=== PATIENT | female | born 1945 | race Caucasian/White ===

== ENCOUNTER → 2018-03-04 09:50 | Outpatient (CLI) | payer MEDICARE, BC, SELFPAY ==
[2018-02-26 17:09] VITALS: BMI 28.3
[2018-03-04 10:26] LABS: Add Manual Diff / Slide Review NO; Basophils Percent Auto 2.4 % (0-2); Eosinophils Percent Auto 2.8 % (2-4); Hematocrit 29.3 % (36-46); Hemoglobin 10.1 g/dL (12.0-16.0); Lymphocytes Percent Auto 32.3 % (25-40); Mean Corpuscular HGB Conc 34.5 % (30-36); Mean Corpuscular Hemoglobin 32.9 PG (26-34); Mean Corpuscular Volume 95.4 fL (80-100); Monocytes Percent Auto 11.1 % (3-14); Neutrophils Absolute Auto 3100 /uL (3000-5900); Neutrophils Percent Auto 51.4 % (50-75); Platelet Count 324 X10^3/uL (150-400); Red Blood Cell Count 3.07 X10^6/uL (4.0-5.2); Red Cell Distribution Width 13.5 % (11.6-14.8); White Blood Cell Count 5.9 X10^3/uL (4.5-11.0)
[2018-03-04 10:31] LABS: Alanine Aminotransferase 25 IU/L (9-52); Albumin 3.8 g/dL (3.5-5.0); Albumin Globulin Ratio 1.7 (1.0-2.8); Alkaline Phosphatase 49 U/L (38-126); Aspartate Aminotransferase 25 IU/L (14-36); BUN Creatinine Ratio 27.5 (6-22); Bilirubin Total 0.5 mg/dL (0.2-1.3); Calcium 8.6 mg/dL (8.4-10.2); Cholesterol 204 mg/dL (140-199); Estimated Glomerular Filt Rate > 60.0 mL/min (>60); Globulin 2.3 g/dL (1.7-4.1); Glucose 109 mg/dL (80-110); Sodium 142 mmol/L (137-145); Total Protein 6.1 g/dL (6.3-8.2); Triglycerides 59 mg/dL (35-150)
[2018-03-04 10:39] LABS: HEMOLYSIS < 15 (0-50)
[2018-03-04 10:41] LABS: HDL Cholesterol 141 mg/dL (40-60); LDL Cholesterol Calculated 51 mg/dL (<100)
== END ==
PROVIDERS: Family Provider Internal Medicine; PCP Internal Medicine; Visit Provider Internal Medicine
DX: M06.9 Rheumatoid arthritis, unspecified (principal)
CPT/HCPCS: 36415; 80053; 80061; 85025

== ENCOUNTER → 2018-03-09 16:53 | Outpatient (CLI) | payer MEDICARE, BC, SELFPAY ==
[2018-02-26 17:09] VITALS: BMI 28.3
== END ==
PROVIDERS: Family Provider Internal Medicine; PCP Internal Medicine; Visit Provider Internal Medicine
DX: K92.2 Gastrointestinal hemorrhage, unspecified (principal); K25.9 Gastric ulcer, unspecified as acute or chronic, without hemorrhage or perforation; D62 Acute posthemorrhagic anemia

== ENCOUNTER → 2018-03-10 13:31 | Outpatient (CLI) | payer MEDICARE, BC, SELFPAY ==
[2018-02-26 17:09] VITALS: BMI 28.3
[2018-03-10 14:18] LABS: Add Manual Diff / Slide Review NO; Basophils Percent Auto 1.1 % (0-2); Eosinophils Percent Auto 1.1 % (2-4); Hematocrit 30.6 % (36-46); Hemoglobin 10.3 g/dL (12.0-16.0); Lymphocytes Percent Auto 12.1 % (25-40); Mean Corpuscular HGB Conc 33.7 % (30-36); Mean Corpuscular Hemoglobin 31.9 PG (26-34); Mean Corpuscular Volume 94.5 fL (80-100); Monocytes Percent Auto 7.2 % (3-14); Neutrophils Absolute Auto 6300 /uL (3000-5900); Neutrophils Percent Auto 78.5 % (50-75); Platelet Count 430 X10^3/uL (150-400); Red Blood Cell Count 3.24 X10^6/uL (4.0-5.2); Red Cell Distribution Width 13.7 % (11.6-14.8); White Blood Cell Count 8.1 X10^3/uL (4.5-11.0)
[2018-03-10 14:35] LABS: Alanine Aminotransferase 28 IU/L (9-52); Albumin 3.9 g/dL (3.5-5.0); Albumin Globulin Ratio 1.7 (1.0-2.8); Alkaline Phosphatase 53 U/L (38-126); Aspartate Aminotransferase 24 IU/L (14-36); Bilirubin Total 0.9 mg/dL (0.2-1.3); Calcium 9.6 mg/dL (8.4-10.2); Estimated Glomerular Filt Rate > 60.0 mL/min (>60); Globulin 2.3 g/dL (1.7-4.1); Glucose 112 mg/dL (80-110); HEMOLYSIS < 15 (0-50); Potassium 4.2 mmol/L (3.4-5.1); Sodium 138 mmol/L (137-145); Total Protein 6.2 g/dL (6.3-8.2)
== END ==
PROVIDERS: PCP Internal Medicine; Visit Provider Internal Medicine
DX: K92.2 Gastrointestinal hemorrhage, unspecified (principal); K25.9 Gastric ulcer, unspecified as acute or chronic, without hemorrhage or perforation; D62 Acute posthemorrhagic anemia
CPT/HCPCS: 36415; 80053; 85025

== ENCOUNTER 2018-11-06 15:17 | Emergency (ER) | payer MEDICARE, BC, SELFPAY ==
[2018-02-26 17:09] VITALS: BMI 28.3
[2018-11-06 15:23] VITALS: BP 121/75; PULSE 86; RESP 18; TEMP 36.9; O2SAT 95; BMI 25.7
--- NOTE | 2018-11-06 15:28 | DI.RAD.S_ITS ---
PROCEDURE: XR CHEST 2V INDICATIONS: productive cough. 10/20/18 TECHNIQUE: 2 views of the chest were acquired. COMPARISON: None. FINDINGS: Surgical changes and devices: None. Lungs and pleura: A subtle pulmonary radiopacity is present within the right midlung. Trace basilar radiopacities are present at the left lung base. Mediastinum: Mediastinal contours are normal. Heart size is normal. Bones and chest wall: No suspicious bony abnormalities. Soft tissues appear unremarkable. IMPRESSION: Bilateral pulmonary opacities. Differential considerations include aspiration and infection. Short interval followup is recommended to ensure resolution of this finding and exclude underlying pulmonary pathology. Dictated by: Shauna Maxwell M.D. on 11/06/2018 at 15:55 Approved by: Shauna Maxwell M.D. on 11/06/2018 at 15:56
--- NOTE | 2018-11-06 16:49 | ED_ITS ---
HPI - URI/Sore Throat <Ariana Renteria PA-C - Last Filed: 11/06/18 21:40> General Chief Complaint: Upper Respiratory Symptoms Stated Complaint: states, has had a cold since the 2nd Time Seen by Provider: 11/06/18 16:24 Source: patient Mode of arrival: ambulatory Limitations: no limitations History of Present Illness HPI Narrative: This 73-year-old female comes in due to prolonged cough. She states that just before new year, she was exposed to a sick friend who was coughing. Within a day or 2, she and her both developed cough and cold symptoms. She states initially, this was more sinus congestion and pressure and nasal symptoms, but then moved down to her chest. Cough has been productive with thick sputum. She has not had fever at home but has felt a little bit warm and cold at times. She denies dyspnea or wheeze. Her has been better for some time but her cough will not resolve. Sinus and nasal symptoms are much better. She states she is not acutely worse today and came in at the urging of her niece who is a nurse. She is on a new biologic medicine for her rheumatoid arthritis Related Data Home Medications Medication Instructions Recorded Confirmed hydroxychloroquine [Plaquenil] 200 mg PO HS #0 06/06/11 03/09/18 gabapentin [Neurontin] 300 mg PO QDAY #0 08/28/16 03/09/18 methylprednisolone 4 mg PO QDAY #0 07/10/17 03/09/18 hydrocodone 7.5 mg-acetaminophen 1 tab PO Q6H 02/23/18 03/09/18 325 mg tablet calcium carbonate [Calcium 600] 600 mg PO DAILY 02/26/18 03/09/18 calcium carbonate-vitamin D3 500 mg PO QDAY 02/26/18 03/09/18 [Calcium 500 + D (D3)] multivitamin 1 tab PO DAILY 02/26/18 03/09/18 vitamin D31-gwkec acid 1 tab PO DAILY 02/26/18 03/09/18 Previous Rx's Medication Instructions Recorded omeprazole 40 mg PO DAILY #30 cap 02/28/18 tramadol 50 mg tablet 50 mg PO Q6H #60 tab 03/09/18 varicella-zoster glycoE vacc-AS01B 0.5 ml IM ONCE #1 each 03/09/18 adj(PF) 50 mcg/0.5 mL IM susp, kit progesterone micronized 100 mg 100 mg PO QDAY #90 cap 03/17/18 capsule estradiol 0.05 mg/24 hr weekly 1 patch TOP QWEEK #12 patch 03/23/18 transdermal patch azithromycin See Label Instructions .ROUTE 11/06/18 .COMPLEX #6 tab Allergies Allergy/AdvReac Type Severity Reaction Status Date / Time Penicillins Allergy Mild RASH Verified 11/06/18 15:27 codeine AdvReac Mild H/A Verified 11/06/18 15:27 Review of Systems <Ariana Renteria PA-C - Last Filed: 11/06/18 21:40> Review of Systems ROS Unobtainable: All systems reviewed & are unremarkable except as noted in HPI and below PFSH <Ariana Renteria PA-C - Last Filed: 11/06/18 21:40> Comment: Approximately 25 pack-years tobacco, quit 1990 Exam <RAJAN Jones Last Filed: 11/06/18 21:40> Narrative Exam Narrative: GENERAL APPEARANCE: Patient sitting comfortably, in no distress. HEAD: No sinus TTP. EYES: PERRL, EOMI. EARS: Normal auditory canals, TMS intact with normal light reflexes. ORAL CAVITY: Normal oropharynx. THROAT: Clear. NECK/THYROID: Neck supple, full range of motion, no cervical lymphadenopathy. LUNGS: Scattered lower lobe crackles that partially clear with cough, no wheeze , good air entry, occasional wet cough HEART: RRR without murmur, nl S1, S2, no S3 or S4. EXTREMITIES: No edema Initial Vital Signs Initial Vital Signs: Vital Signs Temperature 98.4 F 11/06/18 15:23 Pulse Rate 86 11/06/18 15:23 Respiratory Rate 18 11/06/18 15:23 Blood Pressure 121/75 11/06/18 15:23 Pulse Oximetry 95 11/06/18 15:23 <Rush Francois DO - Last Filed: 11/09/18 07:18> Initial Vital Signs Initial Vital Signs: Vital Signs Temperature 98.4 F 11/06/18 15:23 Pulse Rate 86 11/06/18 15:23 Respiratory Rate 18 11/06/18 15:23 Blood Pressure 121/75 11/06/18 15:23 Pulse Oximetry 95 11/06/18 15:23 Course <Ariana Renteria PA-C - Last Filed: 11/06/18 21:40> Additional Information: Reviewed patient's CXR findings with her and will treat for atypical pneumonia in the setting of recent cough and respiratory sx. She does not have history or current sx of reactive airways and appears appropriate for outpatient treatment. She agreed to return to ED if any acutely worsening symptoms, otherwise advised follow-up with PCP next week to assess progress and also advised follow-up imaging in about a month Orders Ordered: ED Orders 11/06/18 15:28 XR chest 2V Stat Vital Signs - 8 hr 11/06/18 15:23 11/06/18 16:53 Temperature 98.4 F Pulse Rate 86 86 Respiratory Rate 18 17 Blood Pressure 121/75 Blood Pressure [Left Arm] 125/75 Pulse Oximetry 95 95 <Rush Francois DO - Last Filed: 11/09/18 07:18> Orders Ordered: ED Orders 11/06/18 15:28 XR chest 2V Stat Vital Signs - 8 hr 11/06/18 15:23 11/06/18 16:53 Temperature 98.4 F Pulse Rate 86 86 Respiratory Rate 18 17 Blood Pressure 121/75 Blood Pressure [Left Arm] 125/75 Pulse Oximetry 95 95 MDM - URI/Sore Throat <Ariana Renteria PA-C - Last Filed: 11/06/18 21:40> Imaging Data Chest x-ray: Radiologist's impression: [address] [address] XRay Report Signed Patient: Kelsie Hassan R#: [id number] : 6Acct:[id number] Age/Sex: 73 / FDate of Service: 11/06/18 Loc: ED Accession Number: [id number] Procedure: XR chest 2V Ordering Provider: Ariana Renteria P.A-C PROCEDURE: XR CHEST 2V INDICATIONS: productive cough. 10/20/18 TECHNIQUE: 2 views of the chest were acquired. COMPARISON: None. FINDINGS: Surgical changes and devices: None. Lungs and pleura: A subtle pulmonary radiopacity is present within the right midlung. Trace basilar radiopacities are present at the left lung base. Mediastinum: Mediastinal contours are normal. Heart size is normal. Bones and chest wall: No suspicious bony abnormalities. Soft tissues appear unremarkable. IMPRESSION: Bilateral pulmonary opacities. Differential considerations include aspiration and infection. Short interval followup is recommended to ensure resolution of this finding and exclude underlying pulmonary pathology. Dictated by: Shauna Maxwell M.D. on 11/06/2018 at 15:55 Approved by: Shauna Maxwell M.D. on 11/06/2018 at 15:56 Discharge Plan Departure Patient Disposition: Home Clinical Impression: Pneumonia Discharge Date/Time: 11/06/18 16:55 Interventions: ED Discharge Assessment Last Done: 11/06/18 16:54 Instructions: DI for Pneumonia -- Adult Activity Restrictions/Additional Instructions: I have prescribed an antibiotic called azithromycin that is taken for 5 days, but works for 10. This tends to be good treatment for atypical pneumonia as yours looks on your x-ray. Please return as we discussed if you have any acutely worsening symptoms. Otherwise, please start the antibiotic this evening after you pick it up. Please follow up with Dr. Dobbins' office next week for recheck and to determine whether to go ahead with your next rheumatoid arthritis medicine infusion. You should also have a follow-up x-ray in about a month to make sure this is resolving as expected. Prescriptions: New azithromycin 250 mg tablet See Label Instructions .ROUTE .COMPLEX Qty: 6 RF: 0 No Action hydroxychloroquine [Plaquenil] 200 MG tablet 200 mg PO HS Qty: 0 RF: 0 gabapentin [Neurontin] 300 MG capsule 300 mg PO QDAY Qty: 0 RF: 0 methylprednisolone 4 MG tablet 4 mg PO QDAY Qty: 0 RF: 0 progesterone micronized [Prometrium] 100 mg capsule 100 mg PO QDAY Qty: 90 RF: 3 estradiol [Estradiol Transdermal Patch] 0.05 mg/24 hr patch weekly 1 patch TOP QWEEK Qty: 12 RF: 3 tramadol 50 mg tablet 50 mg PO Q6H Qty: 60 RF: 3 varicella-zoster gE-AS01B (PF) [Shingrix (PF)] 50 mcg/0.5 mL suspension for reconstitution 0.5 ml IM ONCE Qty: 1 RF: 0 hydrocodone-acetaminophen 7.5-325 mg tablet 1 tab PO Q6H RF: 0 calcium carbonate [Calcium 600] 600 mg calcium (1,500 mg) Tablet 600 mg PO DAILY RF: 0 multivitamin Tablet 1 tab PO DAILY RF: 0 vitamin C42-vcczn acid 0.5-1 mg Tablet 1 tab PO DAILY RF: 0 calcium carbonate-vitamin D3 [Calcium 500 + D (D3)] 500 mg(1,250mg) -125 unit Tablet 500 mg PO QDAY RF: 0 omeprazole 40 mg capsule,delayed release(DR/EC) 40 mg PO DAILY Qty: 30 RF: 1 Referrals: Ilir Dobbins MD [Primary Care Provider] - <Rush Francois DO - Last Filed: 11/09/18 07:18> Cosign ED Attending Osvaldoature Attestation: I was available for consultation during this patient's emergency department encounter
[2018-11-06 16:53] VITALS: BP 125/75; PULSE 86; RESP 17; O2SAT 95
== END 2018-11-06 16:55 | disposition home or self-care (01) ==
PROVIDERS: Emergency Provider Internal Medicine; Family Provider Internal Medicine; PCP Internal Medicine
DX: J18.9 Pneumonia, unspecified organism (principal)
CPT/HCPCS: 71046; 99282; 99283

== ENCOUNTER → 2019-01-05 17:35 | Outpatient (CLI) | payer MEDICARE, BC, SELFPAY ==
[2018-02-26 17:09] VITALS: BMI 28.3
[2019-01-05 18:31] LABS: Add Manual Diff / Slide Review NO; Basophils Absolute Auto 100 /uL (0-100); Basophils Percent Auto 1.4 % (0-2); Eosinophils Absolute Auto 0 /uL (0-450); Eosinophils Percent Auto 0.2 % (2-4); Hematocrit 43.1 % (36-46); Hemoglobin 14.1 g/dL (12.0-16.0); Lymphocytes Absolute Auto 1900 /uL (1100-4500); Lymphocytes Percent Auto 26.7 % (25-40); Mean Corpuscular HGB Conc 32.7 % (30-36); Mean Corpuscular Hemoglobin 31.7 PG (26-34); Mean Corpuscular Volume 96.9 fL (80-100); Monocytes Absolute Auto 500 /uL (0-900); Monocytes Percent Auto 7.3 % (3-14); Neutrophils Absolute Auto 4600 /uL (1500-7000); Neutrophils Percent Auto 64.4 % (50-75); Platelet Count 295 X10^3/uL (150-400); Red Blood Cell Count 4.45 X10^6/uL (4.0-5.2); Red Cell Distribution Width 15.2 % (11.6-14.8); White Blood Cell Count 7.2 X10^3/uL (4.5-11.0)
[2019-01-05 18:53] LABS: Alanine Aminotransferase 37 IU/L (9-52); Albumin 4.6 g/dL (3.5-5.0); Albumin Globulin Ratio 1.8 (1.0-2.8); Alkaline Phosphatase 50 U/L (38-126); Aspartate Aminotransferase 31 IU/L (14-36); BUN Creatinine Ratio 13.8 (6-22); Bilirubin Total 1.3 mg/dL (0.2-1.3); Blood Urea Nitrogen 11 mg/dL (7-17); Calcium 9.8 mg/dL (8.4-10.2); Carbon Dioxide 25 mmol/L (22-32); Chloride 103 mmol/L (98-107); Estimated Glomerular Filt Rate > 60.0 mL/min (>60); Globulin 2.6 g/dL (1.7-4.1); Glucose 76 mg/dL (80-110); HEMOLYSIS < 15 (0-50); Potassium 4.5 mmol/L (3.4-5.1); Sodium 138 mmol/L (137-145); Total Protein 7.2 g/dL (6.3-8.2)
[2019-01-05 22:59] LABS: HEMOLYSIS < 15 (0-50); Iron 148 ug/dL (37-170)
[2019-01-05 23:15] LABS: Percent Iron Saturation 62 % (15-50); Total Iron Binding Capacity 240 ug/dL (265-497); Transferrin 246 mg/dL (206-381)
== END ==
PROVIDERS: PCP Internal Medicine; Visit Provider Internal Medicine
DX: D64.9 Anemia, unspecified (principal); J18.9 Pneumonia, unspecified organism
CPT/HCPCS: 36415; 80053; 83540; 83550; 85025

== ENCOUNTER → 2019-01-07 14:22 | Outpatient (CLI) | payer MEDICARE, BC, SELFPAY ==
[2018-02-26 17:09] VITALS: BMI 28.3
--- NOTE | 2019-01-07 14:24 | DI.RAD.S_ITS ---
PROCEDURE: XR CHEST 2V INDICATIONS: Pneumonia TECHNIQUE: 2 views of the chest were acquired. COMPARISON: [facility], CR, XR CHEST 2V, 11/06/2018, 15:36. FINDINGS: Surgical changes and devices: None. Lungs and pleura: Previous areas of bibasilar opacities have resolved. Mediastinum: Mediastinal contours are normal. Heart size is normal. Bones and chest wall: No suspicious bony abnormalities. Soft tissues appear unremarkable. IMPRESSION: Resolution of previous bibasilar opacities. Dictated by: Princess Rod M.D. on 01/07/2019 at 14:48 Approved by: Princess Rod M.D. on 01/07/2019 at 14:49
== END ==
PROVIDERS: PCP Internal Medicine; Visit Provider Internal Medicine
DX: J18.9 Pneumonia, unspecified organism (principal); D64.9 Anemia, unspecified
CPT/HCPCS: 71046

== ENCOUNTER → 2019-08-09 11:40 | Outpatient (CLI) | payer MEDICARE, BC, SELFPAY ==
[2018-02-26 17:09] VITALS: BMI 28.3
[2019-08-09 12:46] LABS: Add Manual Diff / Slide Review NO; Basophils Absolute Auto 100 /uL (0-100); Basophils Percent Auto 1.8 % (0-2); Eosinophils Absolute Auto 100 /uL (0-450); Eosinophils Percent Auto 1.8 % (2-4); Hematocrit 43.2 % (36-46); Hemoglobin 14.5 g/dL (12.0-16.0); Lymphocytes Absolute Auto 2100 /uL (1100-4500); Lymphocytes Percent Auto 33.1 % (25-40); Mean Corpuscular HGB Conc 33.6 % (30-36); Mean Corpuscular Hemoglobin 32.8 PG (26-34); Mean Corpuscular Volume 97.6 fL (80-100); Monocytes Absolute Auto 600 /uL (0-900); Neutrophils Absolute Auto 3300 /uL (1500-7000); Neutrophils Percent Auto 53.3 % (50-75); Platelet Count 285 X10^3/uL (150-400); Red Blood Cell Count 4.42 X10^6/uL (4.0-5.2); Red Cell Distribution Width 13.7 % (11.6-14.8); White Blood Cell Count 6.2 X10^3/uL (4.5-11.0)
[2019-08-09 13:00] LABS: Erythrocyte Sedimentation Rate 1 MM/HR (0-20)
[2019-08-09 13:21] LABS: Alanine Aminotransferase 21 IU/L (9-52); Albumin 4.5 g/dL (3.5-5.0); Albumin Globulin Ratio 1.7 (1.0-2.8); Alkaline Phosphatase 51 U/L (38-126); Amylase 90 U/L (30-110); Aspartate Aminotransferase 32 IU/L (14-36); BUN Creatinine Ratio 21.4 (6-22); Bilirubin Total 1.5 mg/dL (0.2-1.3); Blood Urea Nitrogen 15 mg/dL (7-17); C-Reactive Protein Quant < 0.5 mg/dL (<1.0); Calcium 9.5 mg/dL (8.4-10.2); Carbon Dioxide 28 mmol/L (22-32); Chloride 100 mmol/L (98-107); Estimated Glomerular Filt Rate > 60.0 mL/min (>60); Globulin 2.6 g/dL (1.7-4.1); Glucose 120 mg/dL (80-110); HEMOLYSIS < 15 (0-50); Lipase 49 U/L (23-300); Sodium 136 mmol/L (137-145); Total Protein 7.1 g/dL (6.3-8.2)
== END ==
PROVIDERS: PCP Internal Medicine; Visit Provider Internal Medicine
DX: M06.9 Rheumatoid arthritis, unspecified (principal); R10.11 Right upper quadrant pain; R11.10 Vomiting, unspecified
CPT/HCPCS: 36415; 80053; 82150; 83690; 85025; 85651; 86140

== ENCOUNTER → 2020-01-03 10:03 | Outpatient (CLI) | payer MEDICARE, BC, SELFPAY ==
[2018-02-26 17:09] VITALS: BMI 28.3
--- NOTE | 2020-01-03 | DI.US.S_ITS ---
PROCEDURE: US ABDOMEN COMPLETE INDICATIONS: GENERALIZED ABD PAIN, N/V TECHNIQUE: Real-time scanning was performed of the abdominal and retroperitoneal organs, with image documentation. COMPARISON: None. FINDINGS: Liver: Liver is normal in size and homogeneous in echotexture. Gallbladder: The gallbladder appears normal Biliary ducts: Intrahepatic bile ducts are non-dilated. Extrahepatic bile duct caliber measures 6.9 mm. Normal is 6-7 mm or less in diameter, or 10 mm or less post-cholecystectomy. Pancreas: Visualized portions of the pancreas are sonographically normal. Spleen: Spleen is normal in size and homogeneous in echotexture. Kidneys: Kidneys are normal in size and echotexture. Right kidney measures 8.6 cm long; left kidney measures 9.2 cm long. No hydronephrosis or nephrolithiasis. No solid masses. Aorta: Visualized aorta is normal in caliber at less than 3 cm. Iliacs: Proximal common iliac arteries are normal in caliber at less than 2.5 cm. IVC: Intrahepatic inferior vena cava is patent. Miscellaneous: No free abdominal fluid. IMPRESSION: Normal examination, source of generalized pain, and nausea/vomiting after eating is not found. Dictated by: Kartik Mcclain M.D. on 01/03/2020 at 12:49 Approved by: Kartik Mcclain M.D. on 01/03/2020 at 12:50
== END ==
PROVIDERS: PCP Internal Medicine; Referring Provider Internal Medicine; Visit Provider Internal Medicine
DX: R10.84 Generalized abdominal pain (principal); R11.2 Nausea with vomiting, unspecified
CPT/HCPCS: 76700

== ENCOUNTER → 2020-04-15 14:45 | Outpatient (CLI) | payer MEDICARE, BC, SELFPAY ==
[2018-02-26 17:09] VITALS: BMI 28.3
[2020-04-16 08:36] LABS: COVID19 Sendout Not Detected (Not Detect)
== END ==
PROVIDERS: PCP Internal Medicine; Visit Provider Physician Assistant
DX: Z01.812 Encounter for preprocedural laboratory examination (principal)
CPT/HCPCS: 87635

== ENCOUNTER 2020-04-18 12:01 | Day surgery (SDC) | payer MEDICARE, BC, SELFPAY ==
[2018-02-26 17:09] VITALS: BMI 28.3
--- NOTE | 2020-04-18 | PATH_ITS ---
[facility] Accession Number: [id number] . 01 Material submitted: . PART A: small bowel - SMALL BOWEL PART B: gastrointestinal site - GASTRIC PART C: esophagus - ESOPHAGEAL PART D: colon - COLON POLYP AT HEPATIC FLEXURE PART E: colon - RANDOM COLON . 02 Diagnosis: A. Small Bowel, Biopsy: Duodenal mucosa with no diagnostic abnormality. Negative for active inflammation, features of sprue, dysplasia, or malignancy. . B. Stomach, Biopsy: Antral mucosa with no diagnostic abnormality. No evidence of Helicobacter organisms on H/E stain. Negative for intestinal metaplasia. Negative for dysplasia and malignancy. . C. Esophagus, Biopsy: Squamous epithelium with mild chronic inflammation, suggestive of reflux esophagitis. Intraepithelial eosinophils are not increased. Negative for dysplasia or malignancy. . D. Colon Polyp at Hepatic Flexure, Biopsy: Tubular adenoma. . E. Random Colon, Biopsy: Colonic mucosa with no diagnostic abnormality. Negative for active, chronic, and microscopic colitis. Negative for dysplasia and malignancy. . [facility] 04/20/2020 1053 Local . 02 Electronically signed: . Jostin Torres MD, PhD, Pathologist NPI- [id number] . 01 Gross description: . Part A: SMALL BOWEL: Received in formalin is 1 fragment(s) of solis, soft tissue measuring 0.3 x 0.2 x 0.2 cm submitted entirely in 1 cassette(s) Part B: GASTRIC: Received in formalin is 1 fragment(s) of solis, soft tissue measuring 0.3 x 0.2 x 0.2 cm submitted entirely in 1 cassette(s) Part C: ESOPHAGEAL: Received in formalin are 4 fragment(s) of solis, soft tissue measuring 0.4 x 0.2 x 0.1 cm to 0.2 x 0.2 x 0.1 cm submitted entirely in 1 cassette(s) Part D: COLON POLYP AT HEPATIC FLEXURE: Received in formalin is 1 fragment(s) of solis, soft tissue measuring 0.2 x 0.2 x 0.2 cm submitted entirely in 1 cassette(s) Part E: RANDOM COLON: Received in formalin are 4 fragment(s) of solis, soft tissue measuring 0.3 x 0.3 x 0.1 cm to 0.2 x 0.2 x 0.1 cm submitted entirely in 1 cassette(s) /QMARYCARMEN 04/19/2020 0740 Local . 02 Pathologist provided ICD-10: R10.13, K21.9, D12.3, R19.4 . 02 CPT . 608761, 750489, 915911, 222931, [id number] Performed at: 01 [facility] [address] [place] [address] [id number] MD Clinton Mancuso MD Phone: [phone] Performed at: 02 [facility] [address] [place] [address] [id number] MD Ainsley Gamino MD Phone: [phone]
[2020-04-18 13:27] VITALS: BP 125/67; PULSE 70; RESP 14; TEMP 36.8; O2SAT 98; BMI 25.0
[2020-04-18] MEDS: SODIUM CHLORIDE 0.9% 1,000 ML 21 ML IV (13:54)
--- NOTE | 2020-04-18 14:35 | P.OP.ENDO_ITS ---
Operative Date/Time/Diagnoses Date of procedure: 04/18/20 Time of procedure: 14:35 Pre-op diagnosis: See indication and findings Procedure & Clinicians Study performed: EGD and colonoscopy Same procedure as scheduled: Yes Indications: Dysphagia nausea vomiting heartburn abdominal discomfort diarrhea and history of bleeding peptic ulcer 2 years ago and [facility] Surgeon: David Pulido Procedure Notes Procedure in detail: After informed consent was obtained the patient was placed in the left lateral decubitus position. The video upper scope was placed into the oropharynx and with the patient's help swallowed into the esophagus. The esophagus, stomach, duodenum were carefully examined. On withdrawal, retroflexed view of the GE junction was performed. The scope was removed. The patient tolerated procedure well. The patient was then turned and the scope substituted for colonoscope. This was introduced the rectum and slowly advanced to the terminal ileum. Preparation was good. On slow withdrawal mucosa was carefully examined. The scope was rem kavita. The patient tolerated procedure well. Blood loss none Complications none Sedation MAC Findings EGD 1. Slight rings to the mid esophagus biopsies taken to rule out eosinophilic esophagitis 2. Stomach was scattered erythema but also somewhat friable biopsies taken to rule out Helicobacter 3. Normal duodenal bulb and sweep biopsies taken to rule out celiac Colonoscopy 1. Normal terminal ileum 2. Diminutive 2 mm polyp at the hepatic flexure Jumbo biopsied and removed completely 3. Normal colonic mucosa throughout biopsies taken to rule out microscopic colitis 4. Extensive sigmoid diverticulosis We will be in touch regarding biopsies and follow-up based on the biopsies.
[2020-04-18 15:02] VITALS: BP 92/51; PULSE 65; RESP 10; TEMP 36.7; O2SAT 96
[2020-04-18 15:07] VITALS: BP 95/57; PULSE 67; RESP 10; O2SAT 93
--- NOTE | 2020-04-18 15:09 | SUR.PHASEI ---
Patient somnolent. Passing gas.
[2020-04-18 15:11] VITALS: BP 94/52; PULSE 70; RESP 15; TEMP 36.7; O2SAT 100
[2020-04-18 15:29] VITALS: BP 99/54; PULSE 70; RESP 16; TEMP 36.8; O2SAT 100
== END 2020-04-18 15:41 | disposition home or self-care (01) ==
LOC: ENDO 12:03
PROVIDERS: PCP Internal Medicine; Referring Provider Internal Medicine Gastroenterology; Visit Provider Internal Medicine Gastroenterology
PROC: 0DJ08ZZ Inspection of Upper Intestinal Tract, Via Natural or Artificial Opening Endoscopic (ICD-10-PCS; CPT 43235; principal; 2020-04-18 15:00)
PROC: 0DJD8ZZ Inspection of Lower Intestinal Tract, Via Natural or Artificial Opening Endoscopic (ICD-10-PCS; CPT 45378; 2020-04-18 15:00)
DX: K57.30 Diverticulosis of large intestine without perforation or abscess without bleeding (principal); Z80.0 Family history of malignant neoplasm of digestive organs; D12.3 Benign neoplasm of transverse colon; K21.9 Gastro-esophageal reflux disease without esophagitis
CPT/HCPCS: 45380; 43239; J2704; J3010

== ENCOUNTER → 2021-01-10 15:14 | Outpatient (CLI) | payer MEDICARE, BC, SELFPAY ==
[2018-02-26 17:09] VITALS: BMI 28.3
[2021-01-10 15:45] LABS: Add Manual Diff / Slide Review NO; Basophils Absolute Auto 0 /uL (0-100); Basophils Percent Auto 0.2 % (0-2); Eosinophils Absolute Auto 0 /uL (0-450); Eosinophils Percent Auto 0.6 % (2-4); Hematocrit 40.8 % (36-46); Lymphocytes Absolute Auto 600 /uL (1100-4500); Lymphocytes Percent Auto 7.9 % (25-40); Mean Corpuscular HGB Conc 34.3 % (30-36); Mean Corpuscular Hemoglobin 34.1 PG (26-34); Mean Corpuscular Volume 99.6 fL (80-100); Monocytes Absolute Auto 400 /uL (0-900); Monocytes Percent Auto 5.8 % (3-14); Neutrophils Absolute Auto 6300 /uL (1500-7000); Neutrophils Percent Auto 85.5 % (50-75); Platelet Count 251 X10^3/uL (150-400); Red Cell Distribution Width 13.2 % (11.6-14.8); White Blood Cell Count 7.4 X10^3/uL (4.5-11.0)
[2021-01-10 16:15] LABS: Alanine Aminotransferase 17 IU/L (<35); Albumin 4.2 g/dL (3.5-5.0); Albumin Globulin Ratio 1.7 (1.0-2.8); Alkaline Phosphatase 52 U/L (38-126); Amylase 99 U/L (30-110); Aspartate Aminotransferase 28 IU/L (14-36); BUN Creatinine Ratio 17.2 (6-22); Bilirubin Total 1.1 mg/dL (0.2-1.3); Blood Urea Nitrogen 15 mg/dL (7-17); Calcium 9.4 mg/dL (8.4-10.2); Carbon Dioxide 30 mmol/L (22-32); Chloride 103 mmol/L (98-107); Estimated Glomerular Filt Rate > 60.0 mL/min (>60); Globulin 2.5 g/dL (1.7-4.1); Glucose 195 mg/dL (80-110); HEMOLYSIS 19 (0-50); Lipase 43 U/L (23-300); Potassium 4.4 mmol/L (3.4-5.1); Sodium 137 mmol/L (137-145); Total Protein 6.7 g/dL (6.3-8.2)
[2021-01-10 16:31] LABS: HEMOLYSIS < 15 (0-50); Iron 89 ug/dL (37-170)
[2021-01-10 16:48] LABS: Percent Iron Saturation 53 % (15-50); Total Iron Binding Capacity 168 ug/dL (265-497); Transferrin 207 mg/dL (206-381)
[2021-01-10 16:59] LABS: Free T4, Direct Thyroxine 0.92 ng/dL (0.78-2.19)
[2021-01-10 17:13] LABS: Thyroid Stimulating Hormone 0.528 uIU/mL (0.47-4.68)
== END ==
PROVIDERS: PCP Internal Medicine; Referring Provider Internal Medicine; Visit Provider Internal Medicine
DX: L40.9 Psoriasis, unspecified (principal); R19.7 Diarrhea, unspecified; M05.79 Rheumatoid arthritis with rheumatoid factor of multiple sites without organ or systems involvement; R10.9 Unspecified abdominal pain
CPT/HCPCS: 36415; 80053; 82150; 83540; 83550; 83690; 84439; 84443; 85025

== ENCOUNTER → 2021-06-25 14:40 | Outpatient (CLI) | payer MEDICARE, OTHER, SELFPAY ==
[2018-02-26 17:09] VITALS: BMI 28.3
[2021-06-26 08:16] LABS: Immunoglobulin A 242 mg/dL (64-422); Immunoglobulin G, Quantitative 648 mg/dL (586-1602); Immunoglobulin M, Quantitative 33 mg/dL (26-217)
[2021-06-26 16:44] LABS: Tissue Transglutaminase IgA <2 U/mL (0-3)
== END ==
PROVIDERS: PCP Internal Medicine; Referring Provider Internal Medicine Gastroenterology; Visit Provider Internal Medicine Gastroenterology
DX: R19.7 Diarrhea, unspecified (principal)
CPT/HCPCS: 36415; 82784; 83516

== ENCOUNTER → 2021-06-28 11:24 | Outpatient (CLI) | payer MEDICARE, OTHER, SELFPAY ==
[2018-02-26 17:09] VITALS: BMI 28.3
[2021-07-01 16:36] LABS: Calprotectin, Stool 79 ug/g (0-120)
[2021-07-03 23:42] LABS: Pancreatic Elastase, Fecal 296 (>200)
== END ==
PROVIDERS: PCP Internal Medicine; Referring Provider Internal Medicine Gastroenterology; Visit Provider Internal Medicine Gastroenterology
DX: R19.7 Diarrhea, unspecified (principal)
CPT/HCPCS: 82656; 83993

== ENCOUNTER → 2021-08-26 12:05 | Outpatient (CLI) | payer MEDICARE, OTHER, SELFPAY ==
[2018-02-26 17:09] VITALS: BMI 28.3
== END ==
PROVIDERS: PCP Internal Medicine; Referring Provider Internal Medicine Rheumatology; Visit Provider Internal Medicine Rheumatology
DX: M05.79 Rheumatoid arthritis with rheumatoid factor of multiple sites without organ or systems involvement (principal); Z78.0 Asymptomatic menopausal state
CPT/HCPCS: 77080

== ENCOUNTER 2021-11-03 12:38 | Emergency (ER) | payer MEDICARE, OTHER, SELFPAY ==
[2018-02-26 17:09] VITALS: BMI 28.3
[2021-11-03 12:50] VITALS: BP 160/73; PULSE 66; RESP 18; TEMP 36.9; O2SAT 99; BMI 22.6
--- NOTE | 2021-11-03 12:57 | DI.RAD.S_ITS ---
PROCEDURE: XR HIP W PEL IF DONE RT 4V INDICATIONS: hip pain TECHNIQUE: AP pelvis with lateral view(s) of the right hip(s). COMPARISON: None. FINDINGS: Bones: No fractures or dislocations. Pelvic ring appears intact. No suspicious bony lesions. Postsurgical change with discectomy at L4-5. Periarticular as well as greater trochanter osteophytosis. Soft tissues: The visualized bowel gas pattern is normal. No suspicious soft tissue calcifications. IMPRESSION: No acute osseous abnormality. Dictated by: Mat Beal M.D. on 11/03/2021 at 13:15 Approved by: Mat Beal M.D. on 11/03/2021 at 13:18
--- NOTE | 2021-11-03 14:31 | ED.EXTPRO ---
HPI - Extremity Problem <Ainsley Turner Haney [facility] - Last Filed: 11/03/21 17:03> General Chief complaint: Extremity Problem,Nontraumatic Stated complaint: right hip hurts, hard to walk Time Seen by Provider: 11/03/21 14:31 History of Present Illness HPI Narrative: 76-year-old female with history of rheumatoid arthritis and prior lumbar spine surgery with hardware presents to the emergency department complaining of right buttock and right upper leg pain which started 3 days ago in the middle of the night when she was attempting to roll over. Patient reports that when she stands on her legs or is walking her right leg is very sharp and painful starting in her right buttock. She denies any weakness in her lower extremity, she endorses that this is never happened to her before. Patient is on multiple medications for her rheumatoid arthritis including methotrexate, daily methylprednisolone, the hydroxychloroquine, gabapentin, and budesonide. Patient reports that years ago she had 3 back surgeries and has had low back pain for years but never has it traveled down her leg. Patient denies any sensation changes. Patient denies any recent trauma, she denies any fall or any abrupt movements recently. She denies any fever, she denies any weakness or inability to walk walking is the most painful. Right leg lift reproduces symptoms, no pain with left leg lift Related Data Home Medications Medication Instructions Recorded Confirmed hydroxychloroquine 200 mg tablet 200 mg PO HS #0 06/06/11 08/19/21 (Plaquenil) gabapentin 300 mg capsule 300 mg PO QDAY #0 08/28/16 08/19/21 (Neurontin) ferrous sulfate 325 mg (65 mg 325 mg PO DAILY tab 11/12/18 08/19/21 iron) tablet golimumab 12.5 mg/mL intravenous See Rx Instructions IV .COMPLEX ml 11/12/18 08/19/21 solution (Simponi ARIA) methylprednisolone 4 mg tablet 4 mg PO DAILY 08/08/19 08/19/21 calcium carbonate 600 mg calcium 1,200 mg PO DAILY tab 09/19/19 08/19/21 (1,500 mg) tablet (Calcium) cholecalciferol (vitamin D3) 25 2,000 unit PO DAILY cap 09/19/19 08/19/21 mcg (1,000 unit) capsule hydrocodone 10 mg-acetaminophen See Rx Instructions PO DAILY PRN 09/19/19 08/19/21 325 mg tablet tab Vitamin B12 1 tab PO DAILY 02/18/21 08/19/21 methotrexate sodium 2.5 mg tablet 7.5 mg PO QWEEK tab 02/18/21 08/19/21 Vitamin C 1 tab PO DAILY 08/19/21 budesonide 3 mg 6 mg PO DAILY ea 08/19/21 08/19/21 capsule,delayed,extended release colestipol 1 gram tablet 2 g PO BEDTIME tab 08/19/21 08/19/21 folic acid 1 mg tablet 1 mg PO DAILY tab 08/19/21 08/19/21 loperamide 2 mg tablet 2 mg PO BEDTIME tab 08/19/21 08/19/21 Previous Rx's Medication Instructions Recorded Disabled Parking #1 each 11/12/18 famotidine 40 mg tablet 40 mg PO DAILY #90 tab 12/19/19 pantoprazole 40 mg tablet,delayed 40 mg PO DAILY #90 tab 09/09/21 release progesterone micronized 100 mg 100 mg PO DAILY #90 cap 09/20/21 capsule estradiol 0.05 mg/24 hr weekly 1 patch TOPICAL QWEEK #12 each 10/01/21 transdermal patch gabapentin 300 mg capsule 300 mg PO BID PRN #14 cap 11/03/21 lidocaine 4 % topical patch 1 patch TOPICAL DAILY PRN #15 ea 11/03/21 methocarbamol 500 mg tablet 500 mg PO TID PRN #20 tab 11/03/21 methylprednisolone 4 mg tablet 4 mg PO DAILY #7 tab 11/03/21 Allergies Allergy/AdvReac Type Severity Reaction Status Date / Time Penicillins Allergy Mild RASH Verified 11/03/21 12:57 codeine AdvReac Mild H/A Verified 11/03/21 12:57 Review of Systems <Ainsley Haney [facility] - Last Filed: 11/03/21 17:03> Review of Systems Narrative: General: denies fever, chills, malaise, sweats, fatigue Head/Neck: denies headache, neck pain, dizziness Eyes: denies visual changes, eye pain Cardio: denies chest pain, palpitations, edema Respiratory: denies dyspnea, cough, orthopnea GI: denies abdominal pain, nausea, vomiting, or diarrhea : denies dysuria, hematuria, urinary retention, frequency or incontinence MSK: denies joint pain, muscle weakness, endorses low back pain with right leg pain Skin: denies rash, itching, skin lesions or other Neuro: denies numbness, tingling Patient History <TODD Redman - Last Filed: 11/03/21 17:03> Medical History Chronic diarrhea Diverticular disease of colon Gilbert syndrome History of adenomatous polyp of colon (06/27/11) History of migraine headaches Psoriasis Pyloric ulcer (~02/2018) Rheumatoid arthritis (06/06/11) Surgical History History of carpal tunnel repair Status post tubal ligation Family History Brother Age: 75 Hypertension High cholesterol Child Age: 57 Mental health problem Child Age: 54 MS (multiple sclerosis) Father Age: 100 Mental health problem Dementia Cardiac disease Mother Family history of colon cancer Colon cancer Cardiac disease Sister Age: 73 Hypertension High cholesterol Social History household members: spouse Smoking Status: Former smoker alcohol intake: current Smoking Status: Former smoker alcohol intake frequency: 0-2 drinks per day Substance Use Type: does not use Exam <TODD Redman - Last Filed: 11/03/21 17:03> Narrative Exam Narrative: Independently reviewed vitals signs and nursing notes. General: Awake, alert, well-nourished and developed, nontoxic, no cardiorespiratory distress Head/Neck: Atraumatic, neck full range of motion, trachea midline, no JVD or lymphadenopathy. Supple, nontender, no meningeal signs. Eyes: Pupils equal round and reactive, EOMI, conjunctiva normal, no scleral icterus or injections Nose: nares patent, no rhinorrhea, without purulent drainage or septal hematoma. Mouth/Throat: uvula midline, moist mucus membranes Cardio: Regular rate and rhythm, no peripheral edema Respiratory: respirations unlabored without wheezing, stridor, or rales. No retractions. GI: Abdomen soft, nontender, nondistended, no hepato-spenomegaly MSK: Moves all extremities, neurovascularly intact, no flank tenderness, right leg lift reproduces low back pain and right upper hip pain. Pulses 2+ right PT and DP, her foot is warm, without edema patient has lumbar sacral pain to the right of her spine on palpation, no spinal tenderness, 5/5 muscle strength Skin: Normal capillary refill, no rash Neuro: Normal speech and cognition, normal gait, A&O x3 Initial Vital Signs Initial Vital Signs: Vital Signs Temperature 98.4 F 11/03/21 12:50 Pulse Rate 66 11/03/21 12:50 Respiratory Rate 18 11/03/21 12:50 Blood Pressure 160/73 H 11/03/21 12:50 Pulse Oximetry 99 11/03/21 12:50 <Vani Kitchen DO - Last Filed: 11/03/21 18:03> Initial Vital Signs Initial Vital Signs: Vital Signs Temperature 98.4 F 11/03/21 12:50 Pulse Rate 66 11/03/21 12:50 Respiratory Rate 18 11/03/21 12:50 Blood Pressure 160/73 H 11/03/21 12:50 Pulse Oximetry 99 11/03/21 12:50 Course <TODD Redman - Last Filed: 11/03/21 17:03> Orders Ordered: ED Orders 11/03/21 12:57 XR hip w pel if done RT 2V Stat 11/03/21 15:04 XR lumbar spine 2-3V Stat XR sacrum coccyx min 2V Stat Discontinued Medications Hydrocodone Bitart/Acetaminophen (Hydrocodone/Acet 5/325 Tablet) 1 tab PO NOW ONE Stop: 11/03/21 15:32 Last Admin: 11/03/21 16:08 Dose: Not Given Documented by: VINCENT Gabapentin (Gabapentin 300 Mg Capsule) 300 mg PO NOW ONE Stop: 11/03/21 14:54 Last Admin: 11/03/21 15:32 Dose: 300 mg Documented by: VINCENT Ketorolac Tromethamine (Ketorolac 30 Mg/Ml Vial) 15 mg IM NOW ONE Stop: 11/03/21 14:58 Last Admin: 11/03/21 15:32 Dose: 15 mg Documented by: VINCENT Lidocaine (Lidocaine Patch 1 Each Adh..Patch) 1 each TOP NOW ONE Stop: 11/03/21 14:57 Last Admin: 11/03/21 15:32 Dose: 1 each Documented by: VINCENT Methocarbamol (Methocarbamol 500 Mg Tablet) 500 mg PO NOW ONE Stop: 11/03/21 14:54 Last Admin: 11/03/21 15:32 Dose: 500 mg Documented by: VINCENT Methylprednisolone (Methylprednisolone 4 Mg Tablet) 8 mg PO NOW ONE Stop: 11/03/21 14:56 Last Admin: 11/03/21 15:32 Dose: 8 mg Documented by: VINCENT Vital Signs Vital signs: Vital Signs - 8 hr 11/03/21 12:50 11/03/21 16:11 Temperature 98.4 F Pulse Rate 66 67 Respiratory Rate 18 16 Blood Pressure 160/73 H 134/69 Pulse Oximetry 99 99 <Vani Kitchen DO - Last Filed: 11/03/21 18:03> Orders Ordered: ED Orders 11/03/21 12:57 XR hip w pel if done RT 2V Stat 11/03/21 15:04 XR lumbar spine 2-3V Stat XR sacrum coccyx min 2V Stat Discontinued Medications Hydrocodone Bitart/Acetaminophen (Hydrocodone/Acet 5/325 Tablet) 1 tab PO NOW ONE Stop: 11/03/21 15:32 Last Admin: 11/03/21 16:08 Dose: Not Given Documented by: VINCENT Gabapentin (Gabapentin 300 Mg Capsule) 300 mg PO NOW ONE Stop: 11/03/21 14:54 Last Admin: 11/03/21 15:32 Dose: 300 mg Documented by: VINCENT Ketorolac Tromethamine (Ketorolac 30 Mg/Ml Vial) 15 mg IM NOW ONE Stop: 11/03/21 14:58 Last Admin: 11/03/21 15:32 Dose: 15 mg Documented by: VINCENT Lidocaine (Lidocaine Patch 1 Each Adh..Patch) 1 each TOP NOW ONE Stop: 11/03/21 14:57 Last Admin: 11/03/21 15:32 Dose: 1 each Documented by: VINCENT Methocarbamol (Methocarbamol 500 Mg Tablet) 500 mg PO NOW ONE Stop: 11/03/21 14:54 Last Admin: 11/03/21 15:32 Dose: 500 mg Documented by: VINCENT Methylprednisolone (Methylprednisolone 4 Mg Tablet) 8 mg PO NOW ONE Stop: 11/03/21 14:56 Last Admin: 11/03/21 15:32 Dose: 8 mg Documented by: ATAYLOR Vital Signs Vital signs: Vital Signs - 8 hr 11/03/21 12:50 11/03/21 16:11 Temperature 98.4 F Pulse Rate 66 67 Respiratory Rate 18 16 Blood Pressure 160/73 H 134/69 Pulse Oximetry 99 99 MDM - Extremity (Nontraumatic) <Ainsley Haney, [facility] - Last Filed: 11/03/21 17:03> Imaging Data Extremity x-ray #1: Radiologist's Impression: PROCEDURE:? XR LUMBAR SPINE 2-3V ? INDICATIONS:? low back pain w/rt sciatica ? TECHNIQUE:? 3 views of the lumbar spine were acquired.? ? COMPARISON:? [facility], MR, L-SPINE WITHOUT CONTRAST, 03/01/2012, 19:23.? [facility], MR, L-SPINE WITHOUT CONTRAST, 01/22/2011, 18:57.? [facility], CR, XR SACRUM COCCYX MIN 2V, 11/03/2021, 14:57.? [facility], CR, XR HIP W PEL IF DONE RT 2V, 11/03/2021, 12:53.? [facility], CR, L-SPINE 2-3 VIEWS, 03/01/2012, 19:55. ? FINDINGS:? ? Bones:? Postoperative changes are seen, with bilateral pedicle screws at the L4 and L5 levels.? The screws appear well placed.? A disc spacer is seen at L4-L5. ? Vertical fixation rods are seen. No findings of hardware failure or hardware loosening are seen. There has been removal of portions of the posterior elements.? Apparent bone grafting material is also seen. ? 5 nonrib-bearing, lumbar type vertebral bodies are seen. ? No acute appearing fractures are seen.? No suspicious lytic or blastic lesions can be seen. ? ? There is mild retrolisthesis seen at L2-L3, with minimal retrolisthesis at L3-L4.? Moderate disc space narrowing is seen at L1-L2.? There is severe disc space narrowing at L2-L3, with [id number] disc space narrowing at L3-L4 and L4-L5.? Minimal dextroconvex scoliotic curvature is seen.? Endplate irregularity and sclerosis are seen, which are worst at the L2-L3 level. ? Soft tissues:? Overlying bowel gas pattern is normal.? No suspicious soft tissue calcifications.? Atherosclerotic calcification is noted.? ? ? IMPRESSION:? Unremarkable L4-5 postoperative hardware. ? Degenerative changes are seen, which are worst at L2-L3.? These degenerative changes have progressed compared to the priors. ? ? Dictated by: Khanh Calzada M.D. on 11/03/2021 at 15:07 ? ? Approved by: Khanh Calzada M.D. on 11/03/2021 at 15:09 ? Extremity x-ray #2: Radiologist's Impression: PROCEDURE:? XR SACRUM COCCYX MIN 2V ? INDICATIONS:? low back pain w/rt sciatica ? TECHNIQUE:? 3 views of the sacrum and coccyx acquired.? ? COMPARISON:? [facility], CR, XR LUMBAR SPINE 2-3V, 11/03/2021, 14:57.? [facility], CR, XR HIP W PEL IF DONE RT 2V, 11/03/2021, 12:53. ? FINDINGS:? ? Bones:? No fractures or dislocations.? No suspicious bony lesions.? L4-5 postoperative hardware is seen.? Lower lumbar spine postoperative changes are seen. ? Soft tissues:? Visualized bowel gas pattern is normal.? No suspicious soft tissue densities.? IMPRESSION:? No significant abnormality of the sacrum and coccyx can be seen. ? ? Dictated by: Khanh Calzada M.D. on 11/03/2021 at 15:05 ? ? Approved by: Khanh Calzada M.D. on 11/03/2021 at 15:06 ? [facility] Narrative Medical decision making narrative: 76-year-old female with history of rheumatoid arthritis, psoriasis, and Gilbert syndrome presents to the emergency department complaining of low back pain with right hip and right lower extremity pain. X-ray lumbar spine are negative for acute fracture, postoperative changes are seen with pedicle screws at L4-5 and appear well placed per Radiology report. No findings of hardware failure or hardware loosening. Patient has worsening degenerative disc disease compared with prior MRI in 2012, with mild retrolisthesis seen from L2-L3 and unremarkable L4-L5 postoperative hardware. Her degenerative changes are seen worst at L2-L3, these degenerative changes have progressed compared to prior. Patient was given an additional 8 mg of methylprednisolone on top of her 4 mg daily, methocarbamol, Toradol 15 mg IM, gabapentin 300 mg, and a lidocaine patch which she reports as helping her pain at least reduced by 50%. This is most likely a flare of her low back pain with sciatic symptoms down her right leg. I have encouraged her to do warm packs, take an additional 4 mg of methylprednisolone for the next 7 days, methocarbamol prn, lidocaine patches and an extra 300 mg of gabapentin as needed as needed for the next week. 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 She has seen Dr. Kruger in the past, I also referred her to the PAs that are at the clinic and an additional option in the [facility] as she is driving to [place] for her infusions currently and that would shorten her drive. She was satisfied with this, and will follow-up accordingly. Multiple etiologies of back pain considered including: Epidural abscess, cauda equina, mass occupying lesion, canal stenosis, multiple sclerosis, pyelonephritis, and other considered. Patient is appropriate and amenable to discharge home. Vital signs are stable on repeat examination is unremarkable. Patient has been informed of results. Patient has been given strict return to ER precautions for any new or worsening symptoms. Patient understands to follow up closely with outpatient providers as instructed. Patient understands plan and agrees to discharge home. All questions and concerns answered at this time. Discharge Plan Departure Patient Disposition: Home Clinical Impression: Low back pain of multiple sites of spine with sciatica, Rheumatoid arthritis Instructions: DI for Back Pain With Sciatica Activity Restrictions/Additional Instructions: *You have been diagnosed with low back pain with sciatica and a rheumatoid arthritis flare. X-ray of your low back shows that your hardware is stable without any screws coming loose, degenerative changes are seen which is worst between L2 and L3, these degenerative changes have progressed since your prior MRI results in 2011. As it would. The screws appeared well placed and there are no suspicious lesions or acute appearing fractures. You do have severe disc space narrowing between L2 and 3 which is the degenerative changes mentioned. Please treat this with lidocaine patches that I prescribed for you, an additional gabapentin as needed with your regularly scheduled gabapentin for this back pain, an additional meth all prednisolone tablet for the next 7 days to take a total of 8 mg each day and muscle relaxers up to 3 times a day as needed for back pain, spasms, and tightness. Please stay hydrated, remember to eat healthy meals, try stay active so you do not get too stiff, and follow-up with your primary care provider as needed. I have referred you to rheumatology at the [facility] if you choose to have another option or back where Dr. Eaton works in [place], and I put both of the PAs on here which you could see if Dr. Eaton is unavailable. Please follow-up with Dr. Dobbins if your back pain is not improving over the next 2 weeks. Please follow-up with rheumatology as needed for your ongoing autoimmune disease. Thank you for trusting us with your care. If you develop any fever, worsening back pain, the inability to walk, incontinence, or other concerning symptoms please return to the emergency department. *What to do: *Please continue to take your regular medications as directed. [x] New medication prescriptions sent to your pharmacy: [ [facility]] [ ] New medication written as a paper prescription [ ] No new medications given *Please follow up with your primary care provider in 2-3 days, call for an appointment. Let them know you were seen in the Emergency Department and that we ask that you be seen in follow up. We will electronically transmit a record of today's note if your PCP is in our system *If you do not have a primary care provider please contact the [facility] Resource line at [phone]. They will ask some questions about your medical history and help get you set up with a doctor in the community. *Return to Emergency Department if you should have any new, worsening or concerning symptoms, such as [fever greater than 101F, chills, worsening pain, persistent vomiting or other bothersome symptoms] Prescriptions: New gabapentin 300 mg capsule 300 mg PO BID PRN (Reason: low back pain and leg spasms) Qty: 14 0RF Rx Instructions: Please take 1 additional capsule as needed with your regularly scheduled gabapentin for your back pain flare methocarbamol 500 mg tablet 500 mg PO TID PRN (Reason: back pain spasms) Qty: 20 0RF lidocaine 4 % adhesive patch,medicated 1 patch topical DAILY PRN (Reason: pain) Qty: 15 0RF methylprednisolone 4 mg tablet 4 mg PO DAILY Qty: 7 0RF Rx Instructions: Please take 1 additional methylprednisolone daily for the next 7 days. No Action hydroxychloroquine [Plaquenil] 200 MG tablet 200 mg PO HS Qty: 0 0RF gabapentin [Neurontin] 300 MG capsule 300 mg PO QDAY Qty: 0 0RF famotidine 40 mg tablet 40 mg PO DAILY Qty: 90 1RF pantoprazole 40 mg tablet,delayed release (DR/EC) 40 mg PO DAILY Qty: 90 3RF progesterone micronized 100 mg capsule 100 mg PO DAILY Qty: 90 3RF estradiol 0.05 mg/24 hr patch weekly 1 patch topical QWEEK Qty: 12 4RF cholecalciferol (vitamin D3) 1,000 unit capsule 2,000 unit PO DAILY 0RF hydrocodone-acetaminophen 10-325 mg tablet See Rx Instructions PO DAILY PRN (Reason: Pain (Scale Score 1-3)) 0RF Rx Instructions: 3-5 tabs PO daily PRN; Vitamin B12 0.5 mg 1 tab PO DAILY 0RF methotrexate sodium 2.5 mg tablet 7.5 mg PO QWEEK 0RF Rx Instructions: -- Hasn't startd med yet -- 02/18/21 ferrous sulfate 325 mg (65 mg iron) tablet 325 mg PO DAILY 0RF golimumab [Simponi ARIA] 12.5 mg/mL solution See Rx Instructions IV .COMPLEX 0RF Label Comments: IV every 2 months; Rx Instructions: IV every 2 months; (DME) Disabled Parking Qty: 1 0RF Rx Instructions: Patient qualifies for disabled parking as per the attached form. methylprednisolone 4 mg tablet 4 mg PO DAILY 0RF folic acid 1 mg tablet 1 mg PO DAILY 0RF colestipol 1 gram tablet 2 g PO BEDTIME 0RF budesonide 3 mg capsule,delayed,extend.release 6 mg PO DAILY 0RF loperamide 2 mg tablet 2 mg PO BEDTIME 0RF Vitamin C 1,000 mg 1 tab PO DAILY 0RF calcium carbonate [Calcium 600] 600 mg calcium (1,500 mg) tablet 1,200 mg PO DAILY 0RF Referrals: [facility] Rheum/Arthritis [Outside] Hyacinth Joshua PA-C [Non-Staff] - Lana Phoenix PA-C [Non-Staff] - Ilir Dobbins MD [Primary Care Provider] - Yehuda Eaton MD [Non-Staff] - <Vani Kitchen DO - Last Filed: 11/03/21 18:03> Cosign ED Attending Cosignature Attestation: I was immediately available in the department for consultation. Documentation has been reviewed.
--- NOTE | 2021-11-03 15:04 | DI.RAD.S_ITS ---
PROCEDURE: XR LUMBAR SPINE 2-3V INDICATIONS: low back pain w/rt sciatica TECHNIQUE: 3 views of the lumbar spine were acquired. COMPARISON: [facility], MR, L-SPINE WITHOUT CONTRAST, 03/01/2012, 19:23. [facility], MR, L-SPINE WITHOUT CONTRAST, 01/22/2011, 18:57. [facility], CR, XR SACRUM COCCYX MIN 2V, 11/03/2021, 14:57. [facility], CR, XR HIP W PEL IF DONE RT 2V, 11/03/2021, 12:53. [facility], CR, L-SPINE 2-3 VIEWS, 03/01/2012, 19:55. FINDINGS: Bones: Postoperative changes are seen, with bilateral pedicle screws at the L4 and L5 levels. The screws appear well placed. A disc spacer is seen at L4-L5. Vertical fixation rods are seen. No findings of hardware failure or hardware loosening are seen. There has been removal of portions of the posterior elements. Apparent bone grafting material is also seen. 5 nonrib-bearing, lumbar type vertebral bodies are seen. No acute appearing fractures are seen. No suspicious lytic or blastic lesions can be seen. There is mild retrolisthesis seen at L2-L3, with minimal retrolisthesis at L3-L4. Moderate disc space narrowing is seen at L1-L2. There is severe disc space narrowing at L2-L3, with [id number] disc space narrowing at L3-L4 and L4-L5. Minimal dextroconvex scoliotic curvature is seen. Endplate irregularity and sclerosis are seen, which are worst at the L2-L3 level. Soft tissues: Overlying bowel gas pattern is normal. No suspicious soft tissue calcifications. Atherosclerotic calcification is noted. IMPRESSION: Unremarkable L4-5 postoperative hardware. Degenerative changes are seen, which are worst at L2-L3. These degenerative changes have progressed compared to the priors. Dictated by: Khanh Calzada M.D. on 11/03/2021 at 15:07 Approved by: Khanh Calzada M.D. on 11/03/2021 at 15:09
--- NOTE | 2021-11-03 15:04 | DI.RAD.S_ITS ---
PROCEDURE: XR SACRUM COCCYX MIN 2V INDICATIONS: low back pain w/rt sciatica TECHNIQUE: 3 views of the sacrum and coccyx acquired. COMPARISON: [facility], CR, XR LUMBAR SPINE 2-3V, 11/03/2021, 14:57. [facility], CR, XR HIP W PEL IF DONE RT 2V, 11/03/2021, 12:53. FINDINGS: Bones: No fractures or dislocations. No suspicious bony lesions. L4-5 postoperative hardware is seen. Lower lumbar spine postoperative changes are seen. Soft tissues: Visualized bowel gas pattern is normal. No suspicious soft tissue densities. IMPRESSION: No significant abnormality of the sacrum and coccyx can be seen. Dictated by: Khanh Calzada M.D. on 11/03/2021 at 15:05 Approved by: Khanh Calzada M.D. on 11/03/2021 at 15:06
[2021-11-03] MEDS: methylPREDNISolone 4 MG TABLET 8 MG PO (15:32)
[2021-11-03] MEDS: KETOROLAC 30 MG/ML VIAL 15 MG IM (15:32)
[2021-11-03] MEDS: GABAPENTIN 300 MG CAPSULE PO (15:32)
[2021-11-03] MEDS: methocarbamoL 500 MG TABLET PO (15:32)
[2021-11-03] MEDS: LIDOCAINE PATCH 1 EACH ADH..PATCH TOP (15:32)
[2021-11-03 16:11] VITALS: BP 134/69; PULSE 67; RESP 16; O2SAT 99
== END 2021-11-03 16:40 | disposition home or self-care (01) ==
PROVIDERS: Emergency Provider Nurse Practitioner Critical Care Medicine; PCP Internal Medicine
DX: M54.41 Lumbago with sciatica, right side (principal); M06.9 Rheumatoid arthritis, unspecified; Z87.891 Personal history of nicotine dependence
CPT/HCPCS: 72100; 72220; 73502; 96372; 99284; J1885

== ENCOUNTER → 2021-12-07 11:46 | Outpatient (CLI) | payer MEDICARE, OTHER, SELFPAY ==
[2018-02-26 17:09] VITALS: BMI 28.3
--- NOTE | 2021-12-07 | DI.MRI.S_ITS ---
PROCEDURE: MR LUMBAR SPINE WO CON INDICATIONS: Spondylosis without myelopathy or radiculopathy TECHNIQUE: Noncontrast sagittal T1 spin echo and T2 fast echo, sagittal STIR, axial T1 and T2 fast spin echo through the lumbar spine. In cases with scoliosis, additional coronal T2 fast spin echo may be performed. COMPARISON: MRI lumbar spine March 01, 2012 and January 22, 2011. CT lumbar spine February 05, 2010 FINDINGS: Image quality: Excellent. Alignment and Curvature: There is trace L2-L3 and L3-L4 retrolisthesis. Bone Marrow: Postsurgical changes compatible with L4-L5 PSIF. Modic type 2 reactive endplate changes noted adjacent to the L2-L3, L3-L4 and L4-L5 discs. No acute vertebral body compression fractures. Spinal Cord: Conus medullaris terminates at the L1 level. Visualized cord demonstrates normal signal and size. Paraspinous Soft Tissues: No paravertebral masses. T12-L1: Normal appearance. L1-L2: Loss of disc signal and height. Moderate, diffuse disc bulge. Mild to moderate narrowing of the central canal. Mild bilateral neural foraminal narrowing. No neural compression. L2-L3: Loss of disc signal and height. Moderate, diffuse disc bulge. Mild bilateral facet hypertrophy. Mild narrowing of the central canal. Moderate to severe bilateral neural foraminal narrowing with slight compression of the exiting bilateral L2 nerve roots. L3-L4: Loss of disc signal and height. Moderate, diffuse disc bulge. Mild bilateral facet hypertrophy. Mild to moderate narrowing of the central canal. Severe right and moderate to severe left neural foraminal narrowing with slight compression of the exiting L3 nerve roots. L4-L5: Loss of disc signal. Mild, diffuse disc bulge. Mild bilateral facet hypertrophy. No central stenosis. Moderate right and mild left neural foraminal narrowing. No neural compression. L5-S1: Slight loss of disc signal. Minimal, diffuse disc bulge. Moderate bilateral facet hypertrophy. No central stenosis. Mild left neural foraminal narrowing. No neural compression. IMPRESSION: 1. Status post L4-L5 PSIF. 2. Multilevel degenerative disc disease. 3. Multilevel facet arthropathy. 4. No severe central canal narrowing. 5. Severe right and moderate to severe left L3-L4 neural foraminal narrowing with compression of the exiting bilateral L3 nerve roots. Moderate to severe bilateral L2-L3 neural foraminal narrowing with slight compression of the exiting bilateral L2 nerve roots. Dictated by: Viviana William MD, PhD on 12/09/2021 at 10:23 Approved by: Viviana William MD, PhD on 12/09/2021 at 10:36
== END ==
PROVIDERS: PCP Internal Medicine; Referring Provider Orthopaedic Surgery; Visit Provider Orthopaedic Surgery
DX: S39.012A Strain of muscle, fascia and tendon of lower back, initial encounter (principal); M47.816 Spondylosis without myelopathy or radiculopathy, lumbar region; M47.817 Spondylosis without myelopathy or radiculopathy, lumbosacral region; M51.36 Other intervertebral disc degeneration, lumbar region; M51.37 Other intervertebral disc degeneration, lumbosacral region; M48.061 Spinal stenosis, lumbar region without neurogenic claudication; M48.07 Spinal stenosis, lumbosacral region; M43.10 Spondylolisthesis, site unspecified; Z98.890 Other specified postprocedural states; Z98.1 Arthrodesis status
CPT/HCPCS: 72148

== ENCOUNTER 2022-12-03 14:35 | Observation (INO) | payer MEDICARE, OTHER, SELFPAY ==
[2018-02-26 17:09] VITALS: BMI 28.3
[2022-12-03] VITALS (17 sets, daily range): BP systolic 130–160; BP diastolic 66–77; PULSE 61–71; RESP 20; TEMP 37.1; O2SAT 93–98; BMI 23.6
[2022-12-03] MEDS: MECLIZINE HCL 12.5 MG TABLET 25 MG PO (17:10)
[2022-12-03] MEDS: ONDANSETRON 4 MG/2 ML INJ IV (17:10)
[2022-12-03 17:16] LABS: Add Manual Diff / Slide Review NO; Basophils Absolute Auto 100 /uL (0-100); Basophils Percent Auto 0.9 % (0-2); Eosinophils Absolute Auto 0 /uL (0-450); Eosinophils Percent Auto 0.2 % (2-4); Hematocrit 47.7 % (36-46); Hemoglobin 16.4 g/dL (12.0-16.0); Lymphocytes Absolute Auto 800 /uL (1100-4500); Lymphocytes Percent Auto 13.3 % (25-40); Mean Corpuscular HGB Conc 34.3 % (30-36); Mean Corpuscular Hemoglobin 35.3 PG (26-34); Mean Corpuscular Volume 102.7 fL (80-100); Monocytes Absolute Auto 600 /uL (0-900); Monocytes Percent Auto 10.8 % (3-14); Neutrophils Absolute Auto 4300 /uL (1500-7000); Neutrophils Percent Auto 74.8 % (50-75); Platelet Count 261 X10^3/uL (150-400); Red Blood Cell Count 4.64 X10^6/uL (4.0-5.2); White Blood Cell Count 5.8 X10^3/uL (4.5-11.0)
[2022-12-03 17:28] LABS: Alanine Aminotransferase 18 IU/L (<35); Albumin 4.7 g/dL (3.5-5.0); Albumin Globulin Ratio 1.4 (1.0-2.8); Alkaline Phosphatase 59 U/L (38-126); Aspartate Aminotransferase 27 IU/L (14-36); Bilirubin Total 1.1 mg/dL (0.2-1.3); Blood Urea Nitrogen 17 mg/dL (7-17); Calcium 9.3 mg/dL (8.4-10.2); Carbon Dioxide 17 mmol/L (22-32); Chloride 103 mmol/L (98-107); Estimated Glomerular Filt Rate > 60 mL/min (>60); Globulin 3.3 g/dL (1.7-4.1); Glucose 100 mg/dL (80-110); HEMOLYSIS 25 (0-50); Potassium 4.6 mmol/L (3.4-5.1); Sodium 135 mmol/L (137-145)
--- NOTE | 2022-12-03 19:51 | ED.HA ---
HPI - Headache General Chief Complaint: Headache Stated Complaint: Migraine Time Seen by Provider: 12/03/22 19:16 Mode of arrival: Family Vehicle History of Present Illness HPI Narrative: 77-year-old female former smoker with history of diverticulitis, migraines, dizziness presents with her in the chief complaint of at least a few days of a gradually worsening generalized headache. She states that it has become quite severe and is associated with dizziness. She denies any trauma or injury. She has no specific neck pain. She denies any blurred vision or trouble with speech. She denies any extremity numbness, tingling or weakness. She states that she has severe pain that seems to be somewhat improved while at rest and lying flat and rapidly worsens when sitting up or turning her head. It is associated with profound dizziness which also seems to improve when not moving. She is tried taking medications including hydrocodone at home that have had minimal to no relief. She has had no procedures or interventions. She denies any lower extremity weakness and has no loss of control of bowel or bladder. Related Data Home Medications Medication Instructions Recorded Confirmed hydroxychloroquine 200 mg tablet 200 mg PO HS ##0 06/06/11 11/07/21 (Plaquenil) gabapentin 300 mg capsule 300 mg PO QDAY ##0 08/28/16 11/07/21 (Neurontin) ferrous sulfate 325 mg (65 mg 325 mg PO DAILY 11/12/18 11/07/21 iron) tablet golimumab 12.5 mg/mL intravenous See Rx Instructions IV .COMPLEX 11/12/18 11/07/21 solution (Simponi ARIA) methylprednisolone 4 mg tablet 4 mg PO DAILY 08/08/19 11/07/21 calcium carbonate 600 mg calcium 1,200 mg PO DAILY 09/19/19 11/07/21 (1,500 mg) tablet (Calcium) cholecalciferol (vitamin D3) 25 2,000 unit PO DAILY 09/19/19 11/07/21 mcg (1,000 unit) capsule hydrocodone 10 mg-acetaminophen See Rx Instructions PO DAILY PRN 09/19/19 11/07/21 325 mg tablet Pain (Scale Score 1-3) Vitamin B12 1 tab PO DAILY 02/18/21 11/07/21 methotrexate sodium 2.5 mg tablet 7.5 mg PO QWEEK 02/18/21 11/07/21 Vitamin C 1 tab PO DAILY 08/19/21 11/07/21 budesonide 3 mg 6 mg PO DAILY 08/19/21 11/07/21 capsule,delayed,extended release colestipol 1 gram tablet 2 g PO BEDTIME 08/19/21 11/07/21 folic acid 1 mg tablet 1 mg PO DAILY 08/19/21 11/07/21 loperamide 2 mg tablet 2 mg PO BEDTIME 08/19/21 11/07/21 Previous Rx's Medication Instructions Recorded Disabled Parking #1 ea 11/12/18 famotidine 40 mg tablet 40 mg PO DAILY #90 tabs 12/19/19 gabapentin 300 mg capsule 300 mg PO BID PRN low back pain 11/03/21 and leg spasms #14 caps lidocaine 4 % topical patch 1 patch topical DAILY PRN pain #15 11/03/21 ea methocarbamol 500 mg tablet 500 mg PO TID PRN back pain spasms 11/03/21 #20 tabs methylprednisolone 4 mg tablet 4 mg PO DAILY back pain flare #7 11/03/21 tabs estradiol 0.05 mg/24 hr weekly 1 patch topical QWEEK #12 ea 10/14/22 transdermal patch progesterone micronized 100 mg 100 mg PO DAILY #90 caps 10/21/22 capsule pantoprazole 40 mg tablet,delayed 40 mg PO DAILY #90 tabs 11/04/22 release ondansetron 4 mg disintegrating 4 mg PO Q8H PRN nausea and 12/01/22 tablet vomiting #7 tabs Allergies Allergy/AdvReac Type Severity Reaction Status Date / Time Penicillins Allergy Mild RASH Verified 11/07/21 13:34 codeine AdvReac Mild H/A Verified 11/07/21 13:34 Review of Systems Review of Systems Narrative: GENERAL: Denies chills, fatigue, malaise, fever, sweats. HEENT: See HPI RESPIRATORY: Denies dyspnea, cough, wheezing, hemoptysis, sputum. CARDIOVASCULAR: Denies chest pain, palpitations, orthopnea, edema, GASTROINTESTINAL: Denies nausea, vomiting, abdominal pain, diarrhea, constipation, melena. : Denies dysuria, frequency, incontinence, hematuria, urinary retention. MUSCULOSKELETAL: denies weakness, joint pain, or bony pain SKIN: Denies rash, skin lesions, or other NEUROLOGIC: Denies weakness, headache, numbness, change in speech, confusion, seizures, incoordination. PSYCHIATRIC: No concerning psychosocial issues. 12 point review of systems is negative except for those stated above Patient History Medical History (Updated 12/04/22 @ 03:11 by Delmer Guido DO) Chronic diarrhea Diverticular disease of colon Gilbert syndrome History of adenomatous polyp of colon (06/27/11) History of migraine headaches Psoriasis Pyloric ulcer (~02/2018) Rheumatoid arthritis (06/06/11) Surgical History (Updated 11/07/21 @ 14:33 by Ilir Dobbins MD) History of carpal tunnel repair Status post spinal surgery Status post tubal ligation Family History Brother Age: 76 Hypertension High cholesterol Child Age: 58 Mental health problem Child Age: 55 MS (multiple sclerosis) Father Age: 101 Mental health problem Dementia Cardiac disease Mother Family history of colon cancer Colon cancer Cardiac disease Sister Age: 74 Hypertension High cholesterol Social History household members: spouse Smoking Status: Former smoker alcohol intake: current Smoking Status: Former smoker alcohol intake frequency: 0-2 drinks per day Substance Use Type: does not use Exam Narrative Exam Narrative: GENERAL: [77] year old patient appears stated age. Well-developed patient, in mild distress. GCS 15 HEAD: Atraumatic. Normocephalic. EYES: Pupils equal round and reactive. Extraocular motions intact. No scleral icterus. No injection or drainage. No nystagmus ENT: Nose without bleeding, purulent drainage. Throat without erythema, tonsillar hypertrophy or exudate. Airway patent. NECK: Trachea midline. Non tender, no midline tenderness, no change with axial load CARDIOVASCULAR: Regular rate and rhythm without murmurs, gallops, or rubs. RESPIRATORY: Clear to auscultation. Breath sounds equal bilaterally. No wheezes, rales, or rhonchi. GASTROINTESTINAL: Abdomen soft, non-tender, nondistended. EXTREMITIES: No edema or joint tenderness. BACK: Nontender without deformity or crepitance. No flank tenderness. NEURO: AOx3. SKIN: No rash or erythema of visible areas NIH Stroke Scale 1a. LOC: Patient is alert and keenly responsive (0) 1b. LOC Questions: Patient answers both LOC questions accurately (0) 1c. LOC Commands: Patient performs both tasks correctly (0) 2. Best Gaze: Normal (0) 3. Visual: No visual loss (0) 4. Facial palsy: Normal symmetrical movements (0) 5. Motor arm: No drift (0) 6. Motor leg: No drift (0) 7. Limb ataxia: Absent (0) 8. Sensory: Normal (0) 9. Best language: No aphasia; normal (0) 10. Dysarthria: Normal (0) 11. Extinction and inattention: No abnormality (0) NIHSS: 0 Initial Vital Signs Initial Vital Signs: Vital Signs Temperature 98.7 F 12/03/22 15:26 Pulse Rate 67 12/03/22 15:26 Respiratory Rate 20 12/03/22 15:26 Blood Pressure 152/73 H 12/03/22 15:26 Pulse Oximetry 98 12/03/22 15:26 Oxygen Delivery Method 12/03/22 15:26 Course Orders Ordered: ED Orders 12/03/22 20:11 MR cervical spine wo con Stat MR head/brain wo con Stat MR lumbar spine wo con Stat MR thoracic spine wo con Stat Sodium Chloride (Normal Saline 0.9%) 1,000 mls @ 125 mls/hr IV CONT GEORGINA Last Admin: 12/04/22 04:13 Dose: 125 mls/hr Documented By: JUNE Ondansetron HCl (Ondansetron 4 Mg/2 Ml Inj) 4 mg IV Q4HR PRN PRN Reason: Nausea And Vomiting Discontinued Medications Sodium Chloride (Normal Saline 0.9%) 1,000 mls @ 1,000 mls/hr IV BOLUS ONE Stop: 12/04/22 00:50 Last Infusion: 12/04/22 01:14 Dose: 0 mls/hr Documented By: Admin: 12/03/22 23:55 Dose: 1,000 mls/hr Documented By: ROBLES Sodium Chloride (Normal Saline 0.9%) 1,000 mls @ 1,000 mls/hr IV BOLUS ONE Stop: 12/04/22 03:13 Last Infusion: 12/04/22 02:23 Dose: 0 mls/hr Documented By: Admin: 12/04/22 02:17 Dose: 1,000 mls/hr Documented By: DARYA Ketorolac Tromethamine (Ketorolac 30 Mg/Ml Vial) 15 mg IV NOW ONE Stop: 12/03/22 23:21 Last Admin: 12/03/22 23:48 Dose: 15 mg Documented By: AP Lorazepam (Lorazepam 2 Mg/Ml Inj) 1 mg IV NOW ONE Stop: 12/03/22 20:16 Last Admin: 12/03/22 20:23 Dose: 1 mg Documented By: GC Meclizine HCl (Meclizine Hcl 12.5 Mg Tablet) 25 mg PO NOW ONE Stop: 12/03/22 17:04 Last Admin: 12/03/22 17:10 Dose: 25 mg Documented By: AMU Ondansetron HCl (Ondansetron 4 Mg/2 Ml Inj) 4 mg IV NOW ONE Stop: 12/03/22 17:04 Last Admin: 12/03/22 17:10 Dose: 4 mg Documented By: AMU Reevaluation(s) Reevaluation #1: Minimal if any change after above-stated therapies Any attempt to sit upright results in significant and rapid worsening of pain, minimal to any change when turning head side to side, significant improvement when lying flat Vital Signs Vital signs: Vital Signs - 8 hr 12/03/22 22:00 12/03/22 22:10 12/03/22 22:20 Pulse Rate 71 66 65 Blood Pressure 147/77 H 140/73 137/73 Pulse Oximetry 94 95 94 12/03/22 22:30 12/03/22 22:40 12/03/22 22:50 Pulse Rate 65 68 66 Blood Pressure 135/71 144/76 H 133/70 Pulse Oximetry 94 94 94 12/03/22 23:00 12/03/22 23:10 12/03/22 23:20 Pulse Rate 67 66 67 Blood Pressure 130/68 152/76 H 141/66 H Pulse Oximetry 94 93 94 12/03/22 23:30 12/03/22 23:40 12/03/22 23:57 Pulse Rate 68 71 67 Blood Pressure 160/77 H 146/71 H Pulse Oximetry 96 97 95 12/04/22 00:00 12/04/22 00:00 12/04/22 00:10 Pulse Rate 67 65 Blood Pressure 150/78 H Pulse Oximetry 96 95 12/04/22 00:10 12/04/22 00:20 12/04/22 00:20 Pulse Rate 65 Blood Pressure 151/83 H 154/60 H Pulse Oximetry 97 12/04/22 00:30 12/04/22 00:30 12/04/22 00:41 Pulse Rate 62 63 Blood Pressure 154/70 H Pulse Oximetry 96 96 12/04/22 00:41 12/04/22 00:50 12/04/22 00:50 Pulse Rate 62 Blood Pressure 173/80 H 175/74 H Pulse Oximetry 98 12/04/22 01:00 12/04/22 01:00 12/04/22 01:10 Pulse Rate 59 L 61 Blood Pressure 171/76 H Pulse Oximetry 97 96 12/04/22 01:10 12/04/22 01:20 12/04/22 01:20 Pulse Rate 58 L Blood Pressure 171/79 H 182/80 H Pulse Oximetry 96 12/04/22 02:20 12/04/22 02:30 12/04/22 03:00 Pulse Rate 64 64 63 Blood Pressure Pulse Oximetry 92 96 95 MDM - Headache Lab Data 12/03/22 17:00 12/03/22 17:00 Labs: Lab Results 12/03/22 12/03/22 Range/Units 17:00 17:00 WBC 5.8 (4.5-11.0) X10^3/uL RBC 4.64 (4.0-5.2) X10^6/uL Hgb 16.4 H (12.0-16.0) g/dL Hct 47.7 H (36-46) % MCV 102.7 H (80-100) fL MCH 35.3 H (26-34) PG MCHC 34.3 (30-36) % RDW 15.0 H (11.6-14.8) % Plt Count 261 (150-400) X10^3/uL Neut % (Auto) 74.8 (50-75) % Lymph % (Auto) 13.3 L (25-40) % Millard % (Auto) 10.8 (3-14) % Eos % (Auto) 0.2 L (2-4) % Baso % (Auto) 0.9 (0-2) % Neut # (Auto) 4300 (0578-1620) /uL Lymph # (Auto) 800 L (9943-2219) /uL Millard # (Auto) 600 (0-900) /uL Eos # (Auto) 0 (0-450) /uL Baso # (Auto) 100 (0-100) /uL Sodium 135 L (137-145) mmol/L Potassium 4.6 (3.4-5.1) mmol/L Chloride 103 (98-107) mmol/L Carbon Dioxide 17 L (22-32) mmol/L BUN 17 (7-17) mg/dL Creatinine 0.68 (0.52-1.04) mg/dL Estimated GFR > 60 (>60) mL/min BUN/Creatinine Ratio 25.0 H (6-22) Glucose 100 (80-110) mg/dL Calcium 9.3 (8.4-10.2) mg/dL Total Bilirubin 1.1 (0.2-1.3) mg/dL AST 27 (14-36) IU/L ALT 18 (<35) IU/L Alkaline Phosphatase 59 (38-126) U/L Total Protein 8.0 (6.3-8.2) g/dL Albumin 4.7 (3.5-5.0) g/dL Globulin 3.3 (1.7-4.1) g/dL Albumin/Globulin Ratio 1.4 (1.0-2.8) MDM Narrative Medical decision making narrative: CC: 77 female with history of headache and dizziness presents with severe, reproducible positional headache and dizziness Complicating co-morbidities: Prior headaches, dizziness, Gilbert's syndrome Data collected from: Patient and Medical records reviewed: Prior notes in EMR noted Differential considered, but not limited to: Subarachnoid hemorrhage versus mass versus migraine versus peripheral vertigo versus CSF leak versus meningitis versus other Exam documented above, pertinent findings include: A&O x3, GCS 15, no evidence of trauma, severe worsening of symptoms when sitting up, no obvious nystagmus, no focal neurologic findings Lab Test results independently reviewed as above. Pertinent findings: Nothing significant Independently reviewed EKG as above Imaging studies independently reviewed: Head CT without intracranial hemorrhage. MRI of head, C-spine, T-spine and L-spine without abnormal findings, notably no CSF leak or other Consultations: Dr. Kan happy to accept on behalf of Dr. Dobbins Treatments: Patient given fluids, Zofran, Ativan, meclizine, Toradol and has little if any improvement, patient unable to sit up, unable to complete orthostatics or ambulation trial. Discussion: Patient with worsening severe headache with sitting up, no trauma, fever or neck pain. No other neurologic symptoms. No evidence of CSF leak or meningitis, no focal neurologic findings. Imaging reassuring and demonstrates no obvious stroke. Labs unremarkable. Patient's symptoms are still severe despite our best efforts, she is unable to sit up let alone stand or ambulate. Disposition: see below, along with detailed discharge instructions that have been reviewed with patient as well as indications for ED re-evaluation and additional outpatient follow up Discharge Plan Departure Patient Disposition: Admitted as Observation Clinical Impression: Acute intractable headache, Dizziness Admit Date/Time: 12/04/22 03:11 Admit Provider: Ilir Dobbins
--- NOTE | 2022-12-03 20:11 | DI.MRI.S_ITS ---
PROCEDURE: MR THORACIC SPINE WO CON INDICATIONS: positional headache, severe TECHNIQUE: Noncontrast sagittal T1 spine echo and T2 fast spin echo, sagittal STIR, and T2 fast spin echo through the thoracic spine. COMPARISON: None. FINDINGS: Image quality: Excellent. Alignment and Curvature: There is normal bony alignment. Bone Marrow: Marrow is of normal overall signal. No acute vertebral body compression fractures. Spinal Cord: Visualized spinal cord is normal in size and signal. Paraspinous Soft Tissues: No paravertebral masses. Miscellaneous: On axial images, central canal and foramina appear widely patent at all scanned levels. IMPRESSION: No acute changes. Dictated by: Elida Lin M.D. on 12/03/2022 at 22:50 Approved by: Elida Lin M.D. on 12/03/2022 at 22:51
--- NOTE | 2022-12-03 20:11 | DI.MRI.S_ITS ---
PROCEDURE: MR LUMBAR SPINE WO CON INDICATIONS: positional headache, severe TECHNIQUE: Noncontrast sagittal T1 spin echo and T2 fast echo, sagittal STIR, and T2 fast spin echo through the lumbar spine. In cases with scoliosis, additional coronal T2 fast spin echo may be performed. COMPARISON: [facility], MR, MR LUMBAR SPINE WO CON, 12/07/2021, 11:57. FINDINGS: Image quality: Decreased due to hardware artifact. Alignment and Curvature: Grade 1 retrolisthesis L2 on three with severe degenerative change. Moderate disc height loss L1-2, severe disc height loss L2-3, and mild disc height loss L4-5. Disc spacer placed at L3-4. Bone Marrow: Marrow is of normal overall signal. No acute vertebral body compression fractures. Spinal Cord: Conus medullaris terminates at the T12 level. Visualized cord demonstrates normal signal and size. Paraspinous Soft Tissues: No paravertebral masses. T12-L1: Normal appearance. L1-L2: Moderate circumferential disc bulge and mild facet arthropathy with ligamentum flavum hypertrophy. L2-L3: Moderate diffuse circumferential disc bulge and retrolisthesis. Neural foramina are not well seen due to artifact. L3-L4: Disc spacer in place. Widely patent central canal. No visible foraminal narrowing. L4-L5: Mild broad-based disc bulge slightly distorted by right pedicle hardware from the above level. There is probably focal right foraminal disc protrusion resulting in mild right foraminal narrowing without significant change since the prior study. L5-S1: Normal appearance. IMPRESSION: 1. Right L4-5 foraminal disc protrusion resulting in only mild right foraminal narrowing, chronic. 2. No acute process. 3. Postsurgical and degenerative changes at multiple levels as described. Dictated by: Elida Lin M.D. on 12/03/2022 at 22:51 Approved by: Elida Lin M.D. on 12/03/2022 at 22:58
--- NOTE | 2022-12-03 20:11 | DI.MRI.S_ITS ---
PROCEDURE: MR CERVICAL SPINE WO CON INDICATIONS: positional headache, severe TECHNIQUE: Noncontrast sagittal T1 spin echo and T2 fast spin echo, sagittal STIR, foraminal oblique sagittal T2 fast spin echo, and axial gradient echo or T2 fast spin echo through the cervical spine. COMPARISON: [facility], MR, C-SPINE WITHOUT CONTRAST, 03/01/2012, 19:09. FINDINGS: Image quality: Excellent. Alignment and Curvature: Grade 1 anterolisthesis C3 on four. Disc spacer at C4-5. Otherwise normal alignment. Craniocervical junction is intact. Bone Marrow: Marrow demonstrates normal overall signal. Spinal Cord: There is mild focal cord narrowing without abnormal cord signal at C3-4. The cord is otherwise normal in caliber and signal. Paraspinous Soft Tissues: No paravertebral masses. Prevertebral soft tissues are normal in thickness. C2-C3: Normal appearance. C3-C4: Prominent posterior disc osteophyte compressing and distorting cord shape without significant abnormal cord signal. Facet arthropathy and disc osteophyte cause severe bilateral foraminal narrowing. C4-C5: Artifact obscures this level. Neural foramina appear patent on the right and suboptimally seen on the left, probably narrow. C5-C6: Prominent posterior disc osteophyte. Mild bilateral neural foraminal narrowing. C6-C7: Posterior disc osteophyte and uncovertebral hypertrophy. Moderate bilateral foraminal narrowing. C7-T1: Normal appearance. IMPRESSION: 1. No MR evidence of acute process. 2. Chronic appearing, progressive anterolisthesis and disc osteophyte at the C3-4 level resulting in severe central canal narrowing, cord compression, and severe bilateral foraminal narrowing. 3. Multilevel disc degeneration and bilateral foraminal narrowing. Dictated by: Elida Lin M.D. on 12/03/2022 at 22:41 Approved by: Elida Lin M.D. on 12/03/2022 at 22:49
--- NOTE | 2022-12-03 20:11 | DI.MRI.S_ITS ---
PROCEDURE: MR HEAD/BRAIN WO CON INDICATIONS: severe positional TECHNIQUE: Noncontrast axial T1 spin echo, axial T2 fast spin echo, sagittal and axial FLAIR, coronal T2 fast spin echo, axial gradient echo, axial diffusion and ADC through the brain. COMPARISON: None. FINDINGS: Image quality: Excellent. CSF Spaces: Basal cisterns are patent. No extra-axial fluid collections. Ventricles are normal in size and shape. Brain: No intracranial masses or hemorrhage. Age-appropriate cerebral cortical volume. Lara/white matter interface is normal. Brainstem appears normal. Diffusion-weighted images demonstrate no acute ischemic insult. No chronic ischemic insults. Normal intravascular flow voids are present. Skull and face: Calvarium has normal marrow signal. Orbits appear normal. Sinuses: Sinuses and mastoids are clear. IMPRESSION: 1. No MR evidence of acute process. 2. Age-appropriate findings. Dictated by: Elida Lin M.D. on 12/03/2022 at 22:39 Approved by: Elida Lin M.D. on 12/03/2022 at 22:41
[2022-12-03] MEDS: LORazepam 2 MG/ML INJ 1 MG IV (20:23)
[2022-12-03] MEDS: KETOROLAC 30 MG/ML VIAL 15 MG IV (23:48)
[2022-12-03] MEDS: SODIUM CHLORIDE 0.9% 1,000 ML 1000 ML IV (23:55)
[2022-12-04] VITALS (18 sets, daily range): BP systolic 131–182; BP diastolic 60–83; PULSE 58–84; RESP 17–18; TEMP 35.9–36.9; O2SAT 92–98; BMI 24.3
[2022-12-04] MEDS: SODIUM CHLORIDE 0.9% 1,000 ML 1000 ML IV (02:17)
[2022-12-04] MEDS: SODIUM CHLORIDE 0.9% 1,000 ML 125 ML IV ×3 (04:13→20:45)
[2022-12-04 05:08] LABS: COVID-19 CEPHEID PCR (VTM/NP) Negative (Negative)
--- NOTE | 2022-12-04 05:40 | PC.NURSE ---
Patient admitted from ER to room 220. Oriented to her room showed her bed, TV controls & call light. Encouraged to call for assistance if she needed to get up OOB to the bathroom or BSC. Denies any nausea & headache pain scale is 2 @ rest. C/O being hungry requested & provided some vanilla pudding. Will report to day RN to clarify all her home meds. when her comes this morning with her updated home medications list. Will cont. POC & monitor.
--- NOTE | 2022-12-04 07:45 | P.HP_ITS ---
History of Present Illness History of Present Illness Date Patient Seen: 12/04/22 Time Patient Seen: 07:45 Chief complaint: Migraine Narrative: Very pleasant 77-year-old female admitted via emergency department for persistent headache, associated with significant vertiginous type symptoms Patient is started with headache much more mild several days ago. Over the last several days it has become quite intense to the point that she is unable to sit up stand up or really ambulate without severe pain in the head and horrible vertigo like symptoms with sense of movement inability to really focus on anything because things are moving around her etcetera.. None of her usual home remedies have been helpful. She does have a history of migraine headaches and t his feels like a super bad version of that. She is been getting the sort of headaches 3 and 4 times a year last 1 was in August of 2022. ER evaluation was unremarkable including lab work head CT and MR imaging of the brain cervical lumbar and thoracic spine. No evidence of CSF leak. Patient has been afebrile she has no meningismus type signs. Her cervical spine does show evidence central canal stenosis likely least more likely than not due to her longstanding rheumatoid arthritis, and she is really quite asymptomatic in this regard. Essentially unchanged from prior MR imaging as per rheumatology notes. CBC remarkable for mild macrocytosis with slightly elevated hemoglobin hematocri t she is on methotrexate chronically but also supplements folic acid and B12 chronically. We have not seen this before, although last CBC was December 2020 She is admitted for continued symptom management Patient History Medical History Chronic diarrhea Diverticular disease of colon Gilbert syndrome History of adenomatous polyp of colon (06/27/11) History of migraine headaches Psoriasis Pyloric ulcer (~02/2018) Rheumatoid arthritis (06/06/11) Surgical History History of carpal tunnel repair Status post spinal surgery Status post tubal ligation Family & Social History Family History Brother Age: 76 Hypertension High cholesterol Child Age: 58 Mental health problem Child Age: 55 MS (multiple sclerosis) Father Age: 101 Mental health problem Dementia Cardiac disease Mother Family history of colon cancer Colon cancer Cardiac disease Sister Age: 74 Hypertension High cholesterol Social History: household members spouse Prior Living Arrangements House Safety & Behavioral: Feels Safe in Current Yes Environment Been Physically Hurt or No Threatened By a Person Tobacco & Substance use: Smoking Status Former smoker alcohol intake current alcohol intake frequency 0-2 drinks per day Substance Use Type does not use Meds Home Medications and Allergies Home Medications Medication Instructions Recorded Confirmed Type hydroxychloroquine 200 mg tablet 200 mg PO HS ##0 06/06/11 12/04/22 History (Plaquenil) gabapentin 300 mg capsule 300 mg PO BEDTIME ##0 08/28/16 12/04/22 History (Neurontin) Disabled Parking #1 ea 11/12/18 12/04/22 Rx ferrous sulfate 325 mg (65 mg 325 mg PO DAILY 11/12/18 12/04/22 History iron) tablet golimumab 12.5 mg/mL intravenous See Rx Instructions IV .COMPLEX 11/12/18 12/04/22 History solution (Simponi ARIA) methylprednisolone 4 mg tablet 4 mg PO DAILY 08/08/19 12/04/22 History calcium carbonate 600 mg calcium 1,200 mg PO DAILY 09/19/19 12/04/22 History (1,500 mg) tablet (Calcium) cholecalciferol (vitamin D3) 25 2,000 unit PO DAILY 09/19/19 12/04/22 History mcg (1,000 unit) capsule hydrocodone 10 mg-acetaminophen See Rx Instructions PO DAILY PRN 09/19/19 12/04/22 History 325 mg tablet Pain (Scale Score 1-3) famotidine 40 mg tablet 40 mg PO DAILY #90 tabs 12/19/19 12/04/22 Rx Vitamin B12 1 tab PO DAILY 02/18/21 12/04/22 History methotrexate sodium 2.5 mg tablet 7.5 mg PO QWEEK 02/18/21 12/04/22 History colestipol 1 gram tablet 2 g PO BEDTIME 08/19/21 12/04/22 History folic acid 1 mg tablet 1 mg PO DAILY 08/19/21 12/04/22 History loperamide 2 mg tablet 2 mg PO BEDTIME 08/19/21 12/04/22 History lidocaine 4 % topical patch 1 patch topical DAILY PRN pain #15 11/03/21 12/04/22 Rx ea methocarbamol 500 mg tablet 500 mg PO TID PRN back pain spasms 11/03/21 12/04/22 Rx #20 tabs methylprednisolone 4 mg tablet 4 mg PO DAILY back pain flare #7 11/03/21 12/04/22 Rx tabs estradiol 0.05 mg/24 hr weekly 1 patch topical QWEEK #12 ea 10/14/22 12/04/22 Rx transdermal patch progesterone micronized 100 mg 100 mg PO DAILY #90 caps 10/21/22 12/04/22 Rx capsule pantoprazole 40 mg tablet,delayed 40 mg PO DAILY #90 tabs 11/04/22 12/04/22 Rx release hydroxychloroquine 200 mg PO BEDTIME 12/04/22 12/04/22 History Allergies Allergy/AdvReac Type Severity Reaction Status Date / Time Penicillins Allergy Mild RASH Verified 11/07/21 13:34 codeine AdvReac Mild H/A Verified 11/07/21 13:34 Review of Systems Review of Systems ROS: Yes All systems reviewed with the patient and are negative except as otherwise documented Exam Vital Signs (past 8 hours): - 12/03/22 23:57 12/04/22 00:00 12/04/22 00:00 Temperature Pulse Rate 67 67 Respiratory Rate Blood Pressure 150/78 H Pulse Oximetry 95 96 12/04/22 00:10 12/04/22 00:10 12/04/22 00:20 Temperature Pulse Rate 65 65 Respiratory Rate Blood Pressure 151/83 H Pulse Oximetry 95 97 12/04/22 00:20 12/04/22 00:30 12/04/22 00:30 Temperature Pulse Rate 62 Respiratory Rate Blood Pressure 154/60 H 154/70 H Pulse Oximetry 96 12/04/22 00:41 12/04/22 00:41 12/04/22 00:50 Temperature Pulse Rate 63 62 Respiratory Rate Blood Pressure 173/80 H Pulse Oximetry 96 98 12/04/22 00:50 12/04/22 01:00 12/04/22 01:00 Temperature Pulse Rate 59 L Respiratory Rate Blood Pressure 175/74 H 171/76 H Pulse Oximetry 97 12/04/22 01:10 12/04/22 01:10 12/04/22 01:20 Temperature Pulse Rate 61 58 L Respiratory Rate Blood Pressure 171/79 H Pulse Oximetry 96 96 12/04/22 01:20 12/04/22 02:20 12/04/22 02:30 Temperature Pulse Rate 64 64 Respiratory Rate Blood Pressure 182/80 H Pulse Oximetry 92 96 12/04/22 03:00 12/04/22 03:30 12/04/22 03:50 Temperature 96.7 F L Pulse Rate 63 63 64 Respiratory Rate 17 Blood Pressure 143/68 H 131/73 Pulse Oximetry 95 95 98 Oxygen Delivery Method Room Air Narrative Exam Narrative: Elderly female lying in hospital bed somewhat somnolent sleepy after medications presumably given in the emergency department HEENT unremarkable Lungs-clear Heart-regular rate and rhythm Abdomen-benign Extremities-no cyanosis clubbing or edema Neuro-no focal findings, gait not tested, did not really even sit patient up Objective Labs 12/03/22 17:00 12/03/22 17:00 Labs: Laboratory Results - last 24 hr 12/03/22 12/03/22 12/04/22 17:00 17:00 04:05 WBC 5.8 RBC 4.64 Hgb 16.4 H Hct 47.7 H MCV 102.7 H MCH 35.3 H MCHC 34.3 RDW 15.0 H Plt Count 261 Neut % (Auto) 74.8 Lymph % (Auto) 13.3 L Hamilton % (Auto) 10.8 Eos % (Auto) 0.2 L Baso % (Auto) 0.9 Neut # (Auto) 4300 Lymph # (Auto) 800 L Hamilton # (Auto) 600 Eos # (Auto) 0 Baso # (Auto) 100 Sodium 135 L Potassium 4.6 Chloride 103 Carbon Dioxide 17 L BUN 17 Creatinine 0.68 Estimated GFR > 60 BUN/Creatinine Ratio 25.0 H Glucose 100 Calcium 9.3 Total Bilirubin 1.1 AST 27 ALT 18 Alkaline Phosphatase 59 Total Protein 8.0 Albumin 4.7 Globulin 3.3 Albumin/Globulin Ratio 1.4 SARS-CoV-2 (PCR) Negative Assessment & Plan Assessment & Plan narrative: 1. Intractable headache-this point there is no evidence of mass lesion intracranial hemorrhage or CSF leak causing symptoms. Symptoms are consistent with possible low volume CSF but that is not demonstrated on any of her imaging (although imaging can fail to reveal this at times). Does have a history of migraine headaches and I presume this is a super severe migraine. No evidence of infectious etiology based on either symptoms or other clinical findings at this point. She would be at slightly higher than average risk (for some infectious etiology) given her chronic immunosuppression for her rheumatoid arthritis, but given lack of other findings I am somewhat hesitant to do a lumbar puncture and remove any quantity of CSF. If she had a bacterial meningitis given the time course that she is had this headache 1 would think she would have much more dramatic signs and symptoms. A viral meningitis would not result in any specific treatment and again she does not really have clinical signs of an infectious etiology for headache. Therefore I am this point choosing not to have a lumbar puncture performed. In addition patient has had repetitive episodes of headache much like this (although this was much more persistent and severe than previous) again making an infectious etiology must less likely, in my opinion. Continue with symptom management with lorazepam opiate narcotics antiemetics anti-inflammatories and meds as necessary to try and treat headache 2. Rheumatoid arthritis-continue patient's usual medications. She is chronically on low-dose methylprednisolone as well as a biologic. Hydroxychloroquine was discontinued by Rheumatology about this time last year 3. Chronic diarrhea-continue with the cholestyramine, has a negative workup previously 4. Elevated hemoglobin/hematocrit with macrocytosis-most likely secondary to her methotrexate therapy. Could be marker for some underlying bone marrow disorder I suppose. She is not anemic so I doubt there is an actual deficiency of B12 folic acid etcetera. Go ahead and check those levels. Most recent rheumatology notes do not mention a macrocytosis but do not also list the full CBC just that CBC was okay. In any event I doubt that this has any bearing on her presentation with headache etcetera 5. Code status-patient should be a full code in the event of a sudden cardiac or respiratory arrest which is not at all anticipated at this point 6. VTE prophylaxis-Lovenox makes sense given lack of evidence of any bleeding causing her headache certainly should be safe to employ prophylactic doses of low molecular weight heparin for VTE prophylaxis COVID-19 COVID-19 status: Negative Result date/Date tested (Pos, Neg/Pending): 12/04/22 Quality VTE Deep Vein Thrombosis/Pulmonary Embolism Present on Admission: No
[2022-12-04] MEDS: OXYCODONE IR 5 MG TABLET PO ×2 (08:55→12:36)
[2022-12-04] MEDS: FOLIC ACID 1 MG TABLET PO (09:12)
[2022-12-04] MEDS: FERROUS SULFATE 325 MG TABLET PO (09:12)
[2022-12-04] MEDS: ENOXAPARIN 40 MG/0.4 ML SYRINGE SUBCUT (09:12)
[2022-12-04] MEDS: CYANOCOBALAMIN (VITAMIN B-12) 500 MCG TABLET PO (09:12)
[2022-12-04] MEDS: CALCIUM CARBONATE 600 MG TABLET 1200 MG PO (09:13)
[2022-12-04] MEDS: PANTOPRAZOLE DR 40 MG TABLET PO (09:13)
[2022-12-04] MEDS: methylPREDNISolone 4 MG TABLET PO (09:13)
[2022-12-04] MEDS: CHOLECALCIFEROL (VITAMIN D3) 1,000 UNIT TABLET 2000 UNIT PO (09:13)
[2022-12-04 09:42] LABS: Vitamin B12 > 1000 pg/mL (239-931)
[2022-12-04 10:55] LABS: Folate > 20.0 ng/mL (2.76-20.0)
[2022-12-04] MEDS: PROGESTERONE, MICRONIZED 100 MG CAPSULE PO (11:59)
--- NOTE | 2022-12-04 12:43 | CM.DANOTE ---
DCP: Case received, EMR reviewed and met with patient. Introduced self and role. Was able to obtain information regarding patient's baseline activity level at home prior to hospitalization. DCP assessment completed with information currently available. Patient is a 77 year old female who admitted early this morning to the care of the hospitalist team. PCP: Dr. Dobbins. Payer: confirmed: Medicare/[employer]. Patient came to the the hospital via private vehicle secondary to having a few days of gradually worsening generalized headaches. Patient had also indicated headaches became quite severe, and associated with dizziness. Patient did have MRI. Patient is here for symptom management, including opiate narcotics antiemetics and anti-inflammatories to try to relieve headache. Met with patient in her room. She was in bed, stated, she really wasn't feeling much better, due to her headache. Patient is alert and oriented, resides in [place] with spouse, Simba. Patient does not drive, she has a cane for home use. P: DCP to follow closely for any needs. She currently does not have any therapy orders as of yet, but will see if this will be orders when patient has some relief from headaches. Patient should be able to go home when medically stable. Belinda Park RN/[employer] Discharge Planning/Care Management CM Discharge Assessment Start: 12/04/22 12:42 Freq: Status: Active Protocol: Document 12/04/22 12:42 (Rec: 12/04/22 12:43 [id number]) Discharge Planning Assessment Assigned Fine Sander Belinda Park RN/[employer] Advance Directives? Yes Advance Directives on File No History Provided By Patient,Medical Record Prior Living Arrangements House Household Members spouse Type of transporation used prior to Relies on Others admit Independent with ADL's Yes Is patient alert and oriented? Yes Needs Assistance With Meal Prep,Home Chores / Shopping Caregiver for Another No DME Already Rented / Owned Cane Barriers to Discharge No Discharge Plan Home Transportation Arrangement Spouse able to provide transport Referrals Initiated None needed Whiteboard Updated in Patient Room with Yes name and ext. # of Fine Sander Review Status In Process Next Review Type Continued Stay Review
[2022-12-04] MEDS: SUMAtriptan 25 MG TABLET 50 MG PO ×2 (16:50→21:32)
[2022-12-04] MEDS: ONDANSETRON 4 MG/2 ML INJ IV (21:32)
[2022-12-04] MEDS: GABAPENTIN 300 MG CAPSULE PO (21:32)
[2022-12-05] MEDS: SUMAtriptan 25 MG TABLET 50 MG PO ×2 (04:05→09:42)
[2022-12-05] MEDS: SODIUM CHLORIDE 0.9% 1,000 ML 125 ML IV (05:15)
--- NOTE | 2022-12-05 06:31 | PC.NURSE ---
I agree with Linda RNs assessment, documentations, and interventions.
[2022-12-05 07:40] VITALS: O2SAT 97
--- NOTE | 2022-12-05 07:58 | P.PN_ITS ---
Subjective Subjective Date Patient Seen: 12/05/22 Time Patient Seen: 07:50 Interval history: Patient had a reasonably good day yesterday. She still pretty sleepy this morning as I wake her up from a deep sleep. Says she was up at 03:00 to go to the bathroom, had assistance from nursing staff I felt like her head was ?lots better ?. She is able to move her head as she rolls around in bed this morning without a lot of vertiginous type of stuff that was happening yesterday Exam Vital Signs (past 8 hours): Oxygen Delivery Method Room Air Oxygen Flow Rate 0 Objective Labs 12/03/22 17:00 12/03/22 17:00 Labs: Laboratory Results - last 24 hr 12/03/22 17:00 Vitamin B12 > 1000 H Folate > 20.0 H PFS Medical History Chronic diarrhea Diverticular disease of colon Gilbert syndrome History of adenomatous polyp of colon (06/27/11) History of migraine headaches Psoriasis Pyloric ulcer (~02/2018) Rheumatoid arthritis (06/06/11) Surgical History History of carpal tunnel repair Status post spinal surgery Status post tubal ligation Family History Brother Age: 76 Hypertension High cholesterol Child Age: 58 Mental health problem Child Age: 55 MS (multiple sclerosis) Father Age: 101 Mental health problem Dementia Cardiac disease Mother Family history of colon cancer Colon cancer Cardiac disease Sister Age: 74 Hypertension High cholesterol Social History household members: spouse Smoking Status: Former smoker alcohol intake: current Assessment & Plan Assessment and plan (1) Acute intractable headache: Status: Acute Assessment & Plan narrative: Patient seems much improved based on her early childhood assistant experience going to the bathroom. She would breakfast later this morning and I would advocate getting her up out of bed moving around it if indeed she is much better than she can likely be discharged home. I ordered some Fioricet and or sumatriptan yesterday but she has not received any of those. She is getting better on her own. Obviously if she does go home she will need outpatient neurology consultation for her headache disorder Quality VTE Deep Vein Thrombosis/Pulmonary Embolism Present on Admission: No
[2022-12-05 08:16] VITALS: BP 187/84
[2022-12-05 08:18] VITALS: BP 188/86; PULSE 65; RESP 18; TEMP 36.2; O2SAT 95
[2022-12-05] MEDS: methylPREDNISolone 4 MG TABLET PO (09:42)
[2022-12-05] MEDS: CALCIUM CARBONATE 600 MG TABLET 1200 MG PO (09:42)
[2022-12-05] MEDS: CYANOCOBALAMIN (VITAMIN B-12) 500 MCG TABLET PO (09:42)
[2022-12-05] MEDS: FERROUS SULFATE 325 MG TABLET PO (09:42)
[2022-12-05] MEDS: FOLIC ACID 1 MG TABLET PO (09:42)
[2022-12-05] MEDS: CHOLECALCIFEROL (VITAMIN D3) 1,000 UNIT TABLET 2000 UNIT PO (09:43)
[2022-12-05] MEDS: ENOXAPARIN 40 MG/0.4 ML SYRINGE SUBCUT (09:43)
[2022-12-05] MEDS: PANTOPRAZOLE DR 40 MG TABLET PO (09:43)
[2022-12-05] MEDS: PROGESTERONE, MICRONIZED 100 MG CAPSULE PO (10:14)
--- NOTE | 2022-12-05 12:49 | PT-IP ANOTE ---
PT eval received and EMR reviewed. checked pt and pt asleep and spouse in room. spouse stated that pt is not ready for PT and can't hardly sit up due to her dizziness and now pt is resting. Refused PT at this time. will f/u.
--- NOTE | 2022-12-05 14:10 | PT.IIE ---
Current Diagnoses Headache, unspecified (12/04/22) Surgical History (Last Reviewed 12/04/22 @ 07:50 by Ilir Dobbins MD) History of carpal tunnel repair Status post spinal surgery Status post tubal ligation Medical History (Last Reviewed 12/04/22 @ 07:50 by Ilir Dobbins MD) Chronic diarrhea Diverticular disease of colon Gilbert syndrome History of adenomatous polyp of colon (06/27/11) History of migraine headaches Psoriasis Pyloric ulcer (~02/2018) Rheumatoid arthritis (06/06/11) Physical Therapy Inpatient Evaluation/Re-Eval M1 PT/OT-IP Prior Functional Status Start: 12/05/22 15:25 Freq: NEEDED Status: Active Protocol: Document 12/05/22 14:10 AB (Rec: 12/05/22 15:59 AB [id number]) Medical Review Prior Functional Status Medical History Reviewed Yes Communication able to make needs known Mobility and Gait pt stated that she is modified independent with all mobilities and ambulation without AD; uses a SPC for stair climbing Social History Household Members spouse Living Arrangements House Number of Floors (Floors) Two Floors Number of Stairs To Enter/Railing? 1 step to enter 12 steps with L rail ascending to the bedroom but pt stated that she can stay on the first level and sleep on her recliner Home Environment Standard Height Toilet,High Toilet,Walk in Shower,Built-In Shower Seat Home Equipment Front Wheel Walker,Straight Cane,Hand Held Shower,Grab Bars In Shower M2 PT-IP Current Condition Start: 12/05/22 15:25 Freq: NEEDED Status: Active Protocol: Document 12/05/22 14:10 AB (Rec: 12/05/22 15:59 AB [id number]) Physical Therapy Current Condition Current Condition Evaluation Date 12/05/22 Treatment Diagnosis intractable headache; difficulty in walking Onset Date 12/04/22 M3 PT-IP Subjective Start: 12/05/22 15:25 Freq: NEEDED Status: Active Protocol: Document 12/05/22 14:10 AB (Rec: 12/05/22 15:59 AB [email or web address]) Subjective Physical Therapy Visit Type Type Initial Evaluation Visit Start Time 14:10 Visit Stop Time 14:50 Total Visit Minutes 40 Number of CABINET MAKER Visits 0 Physical Therapy Visit Comments Patient Comments agreeable to do PT Therapy Pain Assessment Pain When Pain Assessed At Rest Pain Present Pain Present Pain Reported Location headache Scale Used pain scale not stated Pain Management Techniques Distraction,Modification of Treatment,Re-positioning M4 PT-IP Mobility and Gait Start: 12/05/22 15:25 Freq: NEEDED Status: Active Protocol: Document 12/05/22 14:10 AB (Rec: 12/05/22 15:59 AB [email or web address]) PT-Bed Mobility Assessment Supine to Sit Supine to Sit Maximum Assistance,Bedrails Sit to Supine Sit to Supine Standby Assistance,Bedrails PT-Transfer Assessment Sit to and From Stand Sit to and from Stand Standby Assistance,Contact Guard Assistance,1 Person Assistance,Use of Upper Extremities Equipment Transfer Assistive Device Gait Belt,Front Wheeled Walker Orthotic/Prosthetic Devices or Brace: No Transfers Transfer Destination Toilet Transfer Technique ambulated Transfer Ability Level of Assist Contact Guard Assistance,1 Person Assistance,Use of Upper Extremities Comments Mobility Comments spouse in room. pt requesting to use the toilet. BP in supine: 155/82. completed supine to sit using bed rail max A and cues. spouse stated that he usually assists pt with bed mobility. able to sit on EOb SBA. c/o initial dizziness. (-)nystagmus. completed sit to stand CGA and ambulated to the toilet CGA using FWW. able to complete toileting needs SBA. sit to stand from the toilet SBA using grab bar. pt ambulated towards the sink using FWW CGA and able to maintain standing using FWW for support CGA while completing handwashing. pt requested to go back to bed . stated that chair not comfortable for her back. ambulated to the bed using fWW CGA. completed sit to supine SBA. positioned pt in bed. call light and table placed within reach. BP checked: 186 /79. informed pt and spouse regarding staying on first level of the house at this time and using a fWW for mobility pt agreed. Gait Assessment Gait Gait Assistance Required: Contact Guard Assist Distance (Feet) 15 Able to Maintain Weight Bearing Status Yes During Gait Assistive Devices Assistive Device Gait Belt,Front Wheeled Walker Orthotic/Prosthetic Devices or Brace: No Gait Deviations General Gait Pattern Decreased Stride Length, Decreased Feet Clearance,Step- to Gait Factors Limiting Gait Function Factors Limiting Gait Function Decreased Activity Tolerance, Difficulty Following Directions,Pain,Poor Balance, Poor Safety Awareness PT-Balance Assessment Sitting Balance and Reactions Static Sitting Balance Ability Good Dynamic Sitting Balance Ability Fair Standing Balance and Reactions Static Standing Balance Ability Fair Dynamic Standing Balance Ability Fair Device Used FWW M5 PT-IP Objective Assessments Start: 12/05/22 15:25 Freq: NEEDED Status: Active Protocol: Document 12/05/22 14:10 AB (Rec: 12/05/22 15:59 AB [email or web address]) Orientation Orientation/Cognition Level of Alertness Alert Orientation Name,Place,Situation Language Function Ability No Deficits Noted Safety Awareness Decreased Safety Awareness Memory Description Short Term Impaired Gross Range of Motion Lower Extremity ROM Assessment Within Functional Limits Strength Lower Extremity Strength Assessment Left Impaired Hip 3+/5 Knee 4-/5 Coordination Assessment Gross Coordination Gross Coordination WNL Sensation Assessment Sensation Gross Sensation WNL Muscle Tone Muscle Tone WNL Yes M6 PT-IP Treatment Start: 12/05/22 15:25 Freq: NEEDED Status: Active Protocol: Document 12/05/22 14:10 AB (Rec: 12/05/22 15:59 AB [email or web address]) Physical Therapy Treatment Education Education Provided Safety M7 PT-IP Assessment and Plan Start: 12/05/22 15:25 Freq: NEEDED Status: Active Protocol: Document 12/05/22 14:10 AB (Rec: 12/05/22 15:59 AB [email or web address]) PT Summary Assessment and Plan Potential Rehabilitation Potential Fair Status of Condition at Evaluation Evolving Summary Impairments Pain,ROM,Strength,Balance, Coordination,Sensation,Tone, Cognition,Bed Mobility, Transfers,Gait,Activity Tolerance Assessment Summary pt requiring CGA with mobility and unable to tolerate much activity due to c/o headache. pt will have her spouse to assist her at home. will continue to assess progress and when appropriate will conduct stair climbing training. Goals Bed Mobility Goal Independent Transfer Goal Independent,Front Wheeled Walker Gait Goal Independent,Front Wheel Walker Gait Distance 200 Other Goals up/down 1 step using FWW SBA up/down 12 steps L rail + SPC SBA Days to Meet Goals 10 Frequency of Treatment Frequency Of Treatment Once a Day Treatment Plan Physical Therapy Treatment Plan Bed Mobility Training,Transfer Training,Gait Training, Therapeutic Exercise,Balance Retraining,Discharge Planning, Hot or Cold Pack,Neuromuscular Re-ed,Coordination Retraining Precautions Other Precautions falls Recommendations To Nursing Amount of Assist Needed 1 Person Assist Discharge Recommendations PT Discharge Recommendations Home with 11/05 Assist Available,Home Health, Outpatient PT Transportation Needs at Discharge Private Vehicle
[2022-12-05] MEDS: AMLODIPINE 5 MG TABLET PO (14:23)
[2022-12-05 20:00] VITALS: BP 143/72; PULSE 63; RESP 18; TEMP 36.7; O2SAT 97
[2022-12-05] MEDS: GABAPENTIN 300 MG CAPSULE PO (21:07)
[2022-12-05 22:21] VITALS: O2SAT 96
[2022-12-06 07:50] VITALS: O2SAT 93
[2022-12-06 08:20] VITALS: BP 131/72; PULSE 64; RESP 18; TEMP 36.3; O2SAT 95
[2022-12-06] MEDS: FERROUS SULFATE 325 MG TABLET PO (10:50)
[2022-12-06] MEDS: methylPREDNISolone 4 MG TABLET PO (10:50)
[2022-12-06] MEDS: CALCIUM CARBONATE 600 MG TABLET 1200 MG PO (10:50)
[2022-12-06] MEDS: ENOXAPARIN 40 MG/0.4 ML SYRINGE SUBCUT (10:51)
[2022-12-06] MEDS: SUMAtriptan 25 MG TABLET 50 MG PO ×2 (10:51→15:43)
[2022-12-06] MEDS: PANTOPRAZOLE DR 40 MG TABLET PO (10:51)
[2022-12-06] MEDS: CHOLECALCIFEROL (VITAMIN D3) 1,000 UNIT TABLET 2000 UNIT PO (10:51)
[2022-12-06] MEDS: FOLIC ACID 1 MG TABLET PO (10:51)
[2022-12-06] MEDS: AMLODIPINE 5 MG TABLET PO (10:52)
[2022-12-06] MEDS: PROGESTERONE, MICRONIZED 100 MG CAPSULE PO (10:57)
--- NOTE | 2022-12-06 11:45 | PM.PN.1 ---
Subjective Subjective Date Patient Seen: 12/06/22 Time Patient Seen: 11:45 Interval history: Patient seen in follow-up of intractable headache. Seen in crosscover. Patient overall feeling about the same. Maybe slightly better. Did get up and go to the bathroom. is quite concerned that he will have to bring her back because he can not get her to move much more than she is doing. Feels like she needs to do more for him to be able to take her home. Does feel like things are improved. Headache is still severe. No other change. Not responding to current treatment definitively. Exam Vital Signs (past 8 hours): - 12/06/22 08:20 Temperature 97.4 F L Pulse Rate 64 Respiratory Rate 18 Blood Pressure 131/72 Pulse Oximetry 95 Oxygen Flow Rate 0 Oxygen Delivery Method Room Air Oxygen Flow Rate 0 Narrative Exam Narrative: Alert female comfortable is lungs lying still in no acute distress HEENT exam is unremarkable neck supple without adenopathy lungs are clear heart is regular rate and rhythm abdomen is soft positive bowel sounds nontender extremities without cyanosis clubbing edema Objective Labs 12/03/22 17:00 12/03/22 17:00 [facility] Medical History Chronic diarrhea Diverticular disease of colon Gilbert syndrome History of adenomatous polyp of colon (06/27/11) History of migraine headaches Psoriasis Pyloric ulcer (~02/2018) Rheumatoid arthritis (06/06/11) Surgical History History of carpal tunnel repair Status post spinal surgery Status post tubal ligation Family History Brother Age: 76 Hypertension High cholesterol Child Age: 58 Mental health problem Child Age: 55 MS (multiple sclerosis) Father Age: 101 Mental health problem Dementia Cardiac disease Mother Family history of colon cancer Colon cancer Cardiac disease Sister Age: 74 Hypertension High cholesterol Social History household members: spouse Smoking Status: Former smoker alcohol intake: current Assessment & Plan Assessment & Plan narrative: Intractable headache inpatient with history of migraines. Possible migraine. Workup is in pretty extensive and negative. Interesting that her symptoms seem to be related to low volume CSF but worse certainly when she gets up. Assume this is migraine related. Patient does have a history of significant arthritis both degenerative and rheumatoid and the question really whether or not this could be related to that also. We discussed this with patient. at this point does not feel she can go home I am hoping tomorrow we can do that. Reviewed kidney function and hang going to try some ketorolac IV over the next 24 hours hopefully that will help. Will stay with current management of pain although she isn't getting a lot. And follow from there. Outpatient neurology evaluation Rheumatoid arthritis stable. History of chronic diarrhea continue cholestyramine History of elevated hemoglobin no other changes. As per Dr. Dobbins. Code status full DVT prophylaxis. On Lovenox. Disposition hope home tomorrow. Will see how she responds to treatment. 35 minutes spent with chart review. Discussion with nurses. Orders and dictation Time Spent With Patient Critical Care time: I spent a total of [] minutes of critical care time on this patient's care today; this time is exclusive of procedural time. Quality VTE Deep Vein Thrombosis/Pulmonary Embolism Present on Admission: No
--- NOTE | 2022-12-06 13:55 | PT.IPTN ---
Current Diagnoses Headache, unspecified (12/04/22) Physical Therapy Treatment Note M2 PT-IP Current Condition Start: 12/05/22 15:25 Freq: NEEDED Status: Active Protocol: Document 12/05/22 14:10 AB (Rec: 12/05/22 15:59 AB [id number]) Physical Therapy Current Condition Current Condition Evaluation Date 12/05/22 Treatment Diagnosis intractable headache; difficulty in walking Onset Date 12/04/22 M3 PT-IP Subjective Start: 12/05/22 15:25 Freq: NEEDED Status: Active Protocol: Document 12/06/22 13:55 AB (Rec: 12/06/22 14:53 AB [id number]) Subjective Physical Therapy Visit Type Type Treatment Note Visit Start Time 13:55 Visit Stop Time 14:30 Total Visit Minutes 35 Number of METEOROLOGY PROFESSOR Visits 0 Physical Therapy Visit Comments Patient Comments agreeable to do PT Therapy Pain Assessment Pain When Pain Assessed At Rest Location headache Scale Used pain scale not stated M4 PT-IP Mobility and Gait Start: 12/05/22 15:25 Freq: NEEDED Status: Active Protocol: Document 12/06/22 13:55 AB (Rec: 12/06/22 14:53 AB [email or web address]) PT-Bed Mobility Assessment Rolling Type of Rolling Log Rolling Level of Assist Standby Assistance Supine to Sit Supine to Sit Standby Assistance,Head of Bed Elevated,Bedrails PT-Transfer Assessment Sit to and From Stand Sit to and from Stand Standby Assistance,Contact Guard Assistance,1 Person Assistance,Use of Upper Extremities Equipment Transfer Assistive Device Gait Belt,Front Wheeled Walker Orthotic/Prosthetic Devices or Brace: No Transfers Transfer Destination Toilet Transfer Technique ambulated Transfer Ability Level of Assist Contact Guard Assistance,1 Person Assistance,Use of Upper Extremities Comments Mobility Comments completed supine to sit SBA with HOB elevated. sit to stand CGA and ambulated to the toilet using fWW CGA. pt was able to complete toileting needs SBA. comleted sit to stand from the toilet SBA and ambulate towards the sink using FWW CGA. able to complete handwashing using FWW for support SBA to CGA. pt ambulated to sit on EOB using FWW CGA. completed up/down platform step using fWW CGA. repeated x 2 sets. pt agreed to sit up on the chair and ambulated to the chair using FWW CGA. positioned on the chair. call light and table placed within reach. Gait Assessment Gait Gait Assistance Required: Contact Guard Assist,1 Person Assist Distance (Feet) 20 Able to Maintain Weight Bearing Status Yes During Gait Assistive Devices Assistive Device Gait Belt,Front Wheeled Walker Orthotic/Prosthetic Devices or Brace: No Gait Deviations General Gait Pattern Decreased Stride Length, Decreased Feet Clearance Factors Limiting Gait Function Factors Limiting Gait Function Decreased Activity Tolerance, Decreased Strength,Limited Range of Motion,Pain,Poor Balance Stair Climbing Assessment Evaluation Level of Assist On Stairs Contact Guard Assistance Devices Stair Climbing Assistive Devices Front Wheel Walker Technique/Endurance Stair Climbing Direction Ascend and Descend Stair Climbing Technique Step to Step Number of Steps Climbed 1 Stair Climbing Set # Repetitions (reps) 2 M5 PT-IP Objective Assessments Start: 12/05/22 15:25 Freq: NEEDED Status: Active Protocol: Document 12/05/22 14:10 AB (Rec: 12/05/22 15:[facility] Orientation Orientation/Cognition Level of Alertness Alert Orientation Name,Place,Situation Language Function Ability No Deficits Noted Safety Awareness Decreased Safety Awareness Memory Description Short Term Impaired Gross Range of Motion Lower Extremity ROM Assessment Within Functional Limits Strength Lower Extremity Strength Assessment Left Impaired Hip 3+/5 Knee 4-/5 Coordination Assessment Gross Coordination Gross Coordination WNL Sensation Assessment Sensation Gross Sensation WNL Muscle Tone Muscle Tone WNL Yes M6 PT-IP Treatment Start: 12/05/22 15:25 Freq: NEEDED Status: Active Protocol: Document 12/06/22 13:55 AB (Rec: 12/06/22 14:53 AB [email or web address]) Physical Therapy Treatment Education Education Provided Safety M7 PT-IP Assessment and Plan Start: 12/05/22 15:25 Freq: NEEDED Status: Active Protocol: Document 12/06/22 13:55 AB (Rec: 12/06/22 14:53 [facility] PT Summary Assessment and Plan Potential Rehabilitation Potential Good Summary Impairments Pain,ROM,Strength,Balance, Coordination,Sensation,Tone, Cognition,Bed Mobility, Transfers,Gait,Activity Tolerance Progress Towards Goals Slow Progress due to Medical Issues Assessment Summary pt requiring SBA to CGA with mobility using FWW. pt will have her spouse to assist her at home and may go home when medically stable. will continue to assess progress. Goals Bed Mobility Goal Independent Transfer Goal Independent,Front Wheeled Walker Gait Goal Independent,Front Wheel Walker Gait Distance 200 Other Goals up/down 1 step using FWW SBA up/down 12 steps L rail + SPC SBA Days to Meet Goals 10 Frequency of Treatment Frequency Of Treatment Once a Day Treatment Plan Physical Therapy Treatment Plan Bed Mobility Training,Transfer Training,Gait Training, Therapeutic Exercise,Balance Retraining,Discharge Planning, Hot or Cold Pack,Neuromuscular Re-ed,Coordination Retraining Precautions Other Precautions falls Recommendations To Nursing Amount of Assist Needed 1 Person Assist Discharge Recommendations PT Discharge Recommendations Home with 11/05 Assist Available,Home Health, Outpatient PT Transportation Needs at Discharge Private Vehicle
[2022-12-06] MEDS: CYANOCOBALAMIN (VITAMIN B-12) 500 MCG TABLET PO (15:43)
[2022-12-06] MEDS: KETOROLAC 30 MG/ML VIAL 15 MG IV ×2 (15:44→23:31)
[2022-12-06 20:06] VITALS: BP 133/77; PULSE 78; RESP 16; TEMP 36.3; O2SAT 96
[2022-12-06] MEDS: GABAPENTIN 300 MG CAPSULE PO (20:20)
[2022-12-07] MEDS: KETOROLAC 30 MG/ML VIAL 15 MG IV ×2 (06:32→11:08)
[2022-12-07 08:24] VITALS: BP 143/77; PULSE 63; RESP 18; TEMP 36.4; O2SAT 96
[2022-12-07 09:18] VITALS: O2SAT 96
[2022-12-07] MEDS: CHOLECALCIFEROL (VITAMIN D3) 1,000 UNIT TABLET 2000 UNIT PO (11:06)
[2022-12-07] MEDS: AMLODIPINE 5 MG TABLET PO (11:06)
[2022-12-07] MEDS: FOLIC ACID 1 MG TABLET PO (11:06)
[2022-12-07] MEDS: FERROUS SULFATE 325 MG TABLET PO (11:06)
--- NOTE | 2022-12-07 11:34 | PM.DS.1 ---
History of Present Illness History of Present Illness Date Patient Seen: 12/07/22 Time Patient Seen: 11:34 Date of Onset of Symptoms: 12/07/22 Chief complaint: Migraine Narrative: Very pleasant 77-year-old female admitted via emergency department for persistent headache, associated with significant vertiginous type symptoms Patient is started with headache much more mild several days ago.? Over the last several days it has become quite intense to the point that she is unable to sit up stand up or really ambulate without severe pain in the head and horrible vertigo like symptoms with sense of movement inability to really focus on anything because things are moving around her etcetera..? None of her usual home remedies have been helpful.? She does have a history of migraine headaches and this feels like a super bad version of that.? She is been getting the sort of headaches 3 and 4 times a year last 1 was in August of 2022. ER evaluation was unremarkable including lab work head CT and MR imaging of the brain cervical lumbar and thoracic spine.? No evidence of CSF leak.? Patient has been afebrile she has no meningismus type signs.? Her cervical spine does show evidence central canal stenosis likely least more likely than not due to her longstanding rheumatoid arthritis, and she is really quite asymptomatic in this regard.? Essentially unchanged from prior MR imaging as per rheumatology notes. CBC remarkable for mild macrocytosis with slightly elevated hemoglobin hematocrit she is on methotrexate chronically but also supplements folic acid and B12 chronically.? We have not seen this before, although last CBC was December 2020 She is admitted for continued symptom management Discharge Providers Provider Date of admission: 12/04/22 03:11 Discharge Date: 12/07/22 Primary care physician: Ilir Dobbins MD Consults: 12/05/22 10:08 Consult to Physical Therapy Evaluate & Treat Comment: safety, has been dizzy and wobbly Physician Instructions: Evaluate and Treat Discharge provider: Zaire Kan MD Summary Hospital Course Discharge Diagnosis: Intractable headache Rheumatoid arthritis Hypertension Elevated hemoglobin Hospital Course: Intractable headaches. Patient has history of previous headaches. Thought maybe to be a migraine. Workup was very extensive. Interesting that is worse when she sits up. Does not appear to be low volume CSF. Patient was tried on sumatriptan and pain medicines without much improvement. Day before discharge she was started on Toradol IV and felt remarkably better the next day. She will be sent home with 1 prescription of oral Toradol. We discussed that due to the fact that she is had a history of bleed and she is on methotrexate she can only use that for a short burst 1 or 2 days. They seem to be comfortable with that. Will let her primary care doctor decide on long-term discussion. And outpatient neurologic referral. History of rheumatoid arthritis. Stable throughout course. Hypertension. On day 2 patient was started on Norvasc much improved. Will be followed as outpatient. Continue. History of elevated hemoglobin. Will be followed and worked up as outpatient as appropriate. Exam Vital Signs (past 8 hours): - 12/07/22 08:24 12/07/22 09:18 Temperature 97.5 F L Pulse Rate 63 Respiratory Rate 18 Blood Pressure 143/77 H Pulse Oximetry 96 96 Oxygen Delivery Method Room Air Oxygen Flow Rate 0 Oxygen Delivery Method Room Air Oxygen Flow Rate 0 Narrative Exam Narrative: Alert elderly female much less fatigued and smiling moving around comfortably. HEENT exam is unremarkable lungs are clear heart is regular rate and rhythm neurologic exam is completely nonfocal Objective Labs 12/03/22 17:00 12/03/22 17:00 [facility] Medical History Chronic diarrhea Diverticular disease of colon Gilbert syndrome History of adenomatous polyp of colon (06/27/11) History of migraine headaches Psoriasis Pyloric ulcer (~02/2018) Rheumatoid arthritis (06/06/11) Surgical History History of carpal tunnel repair Status post spinal surgery Status post tubal ligation Family History Brother Age: 76 Hypertension High cholesterol Child Age: 58 Mental health problem Child Age: 55 MS (multiple sclerosis) Father Age: 101 Mental health problem Dementia Cardiac disease Mother Family history of colon cancer Colon cancer Cardiac disease Sister Age: 74 Hypertension High cholesterol Social History household members: spouse Smoking Status: Former smoker alcohol intake: current Discharge Assessment & Plan Assessment and Plan Assessment: Intractable headache. Much improved Plan of Treatment: Discharge home Discharge Plan Discharge Plan Patient Disposition: Home Discharge orders & Medications Prescriptions: New amlodipine [Norvasc] 5 mg Tablet 5 mg PO DAILY Qty: 30 1RF ketorolac 10 mg tablet 10 mg PO TID PRN (Reason: pain) 5 Days Qty: 14 0RF Continued hydroxychloroquine [Plaquenil] 200 MG tablet 200 mg PO HS Qty: 0 gabapentin [Neurontin] 300 MG capsule 300 mg PO BEDTIME Qty: 0 famotidine 40 mg tablet 40 mg PO DAILY Qty: 90 1RF Label Comments: not sure if i take it. estradiol 0.05 mg/24 hr patch weekly 1 patch topical QWEEK Qty: 12 0RF progesterone micronized 100 mg capsule 100 mg PO DAILY Qty: 90 0RF Rx Instructions: PT WILL NEED TO BE SEEN BEFORE NEXT FILL 10/21/22 pantoprazole 40 mg tablet,delayed release (DR/EC) 40 mg PO DAILY Qty: 90 0RF Rx Instructions: PT WILL NEED TO BE SEEN BEFORE NEXT RENEWAL 11/04/22 cholecalciferol (vitamin D3) 1,000 unit capsule 2,000 unit PO DAILY hydrocodone-acetaminophen 10-325 mg tablet See Rx Instructions PO DAILY PRN (Reason: Pain (Scale Score 1-3)) Rx Instructions: 3-5 tabs PO daily PRN; Vitamin B12 0.5 mg 1 tab PO DAILY methotrexate sodium 2.5 mg tablet 7.5 mg PO QWEEK Rx Instructions: -- Hasn't startd med yet -- 02/18/21 ferrous sulfate 325 mg (65 mg iron) tablet 325 mg PO DAILY golimumab [Simponi ARIA] 12.5 mg/mL solution See Rx Instructions IV .COMPLEX Label Comments: IV every 2 months; Rx Instructions: IV every 2 months; (DME) Disabled Parking Qty: 1 0RF Rx Instructions: Patient qualifies for disabled parking as per the attached form. methylprednisolone 4 mg tablet 4 mg PO DAILY folic acid 1 mg tablet 1 mg PO DAILY loperamide 2 mg tablet 2 mg PO BEDTIME calcium carbonate [Calcium 600] 600 mg calcium (1,500 mg) tablet 1,200 mg PO DAILY methocarbamol 500 mg tablet 500 mg PO TID PRN (Reason: back pain spasms) Qty: 20 0RF lidocaine 4 % adhesive patch,medicated 1 patch topical DAILY PRN (Reason: pain) Qty: 15 0RF methylprednisolone 4 mg tablet 4 mg PO DAILY Qty: 7 0RF Rx Instructions: Please take 1 additional methylprednisolone daily for the next 7 days. Discontinued hydroxychloroquine 200 mg PO BEDTIME Rx Instructions: 1-2 tabs at night Follow up/Referrals: Ilir Dobbins MD [Primary Care Provider] - 3-5 Days (Patient is to call tomorrow for appointment with Dr. Dobbins this week.) Discharge Health Status Multidrug resistant organism: No MDRO Diet/Activity/Treatments Diet: Diet as Tolerated Skin/Wound/Dressing Care Report to your healthcare provider any signs of infection, such as:: increased pain Visit Report/Discharge Packet Instructions: Combating Dizziness in Older Adults, DI for Migraine, How to Prevent Falls, DI for Dizziness-Nonvertigo Stand Alone Forms: Patient Portal/API, Stroke Signs & Symptoms Discharge Data Primary Care Provider: Ilir Dobbins Attending Provider: Ilir Dobbins Quality VTE Deep Vein Thrombosis/Pulmonary Embolism Present on Admission: No
[2022-12-07] MEDS: PANTOPRAZOLE DR 40 MG TABLET PO (11:39)
[2022-12-07] MEDS: PROGESTERONE, MICRONIZED 100 MG CAPSULE PO (11:39)
[2022-12-07] MEDS: methylPREDNISolone 4 MG TABLET PO (11:39)
== END 2022-12-07 14:00 | disposition home or self-care (01) ==
LOC: ED 12-04 03:11 → AC 12-04 03:11
PROVIDERS: Emergency Medicine; Admitting Provider Internal Medicine; Emergency Provider Emergency Medicine; PCP Internal Medicine; Visit Provider Internal Medicine
DX: R51.9 Headache, unspecified (principal); R42 Dizziness and giddiness; Z20.822 Contact with and (suspected) exposure to COVID-19; R29.700 NIHSS score 0; K52.9 Noninfective gastroenteritis and colitis, unspecified; M06.9 Rheumatoid arthritis, unspecified; R03.0 Elevated blood-pressure reading, without diagnosis of hypertension; D58.2 Other hemoglobinopathies
CPT/HCPCS: 36415; 70551; 72141; 72146; 72148; 80053; 82607; 82746; 85025; 96361; 96374; 96375; 96376; 97162; 97530; 99223; 99233; 99284; G0378; U0003; U0005; J1650; J1885; J2060; J2405

== ENCOUNTER → 2022-12-24 12:02 | Outpatient (CLI) | payer MEDICARE, OTHER, SELFPAY ==
[2022-12-04 04:23] VITALS: BMI 24.3
--- NOTE | 2022-12-24 12:03 | DI.US.S_ITS ---
PROCEDURE: US PELVIC COMPLETE INDICATIONS: postmenopausal bleeding TECHNIQUE: Real-time scanning was performed of the pelvic organs, with image documentation. Additional endovaginal scanning was necessary due to incomplete visualization of the adnexal and endometrial structures by transabdominal scanning. COMPARISON: None. FINDINGS: Uterus: Uterus measures 7.3 x 3.7 x 4.7 cm. Echotexture is slightly heterogeneous. There is a subserosal/intramural fibroid measuring up to 1.8 cm in the posterior mid region. Multiple nabothian cysts. Endometrium measures 3 mm. Ovaries: Probably atrophic, not well seen. Other: No pathologic fluid. IMPRESSION: Endometrium measures 3 mm. We strive to produce accurate, complete, and clear reports of imaging services. To assist us in improving patient care, this report was composed using standard report templates and voice recognition software. Therefore, it may contain abnormal punctuation, insertions and/or omissions. Occasional wrong-word or sound-alike substitutions may occur. Though we review the report and make efforts to correct it, we do recommend that the report be read carefully in proper context to recognize any text inaccuracies. Dictated by: Lucio Jordan M.D. on 12/24/2022 at 16:37 Approved by: Lucio Jordan M.D. on 12/24/2022 at 16:38
== END ==
PROVIDERS: PCP Internal Medicine; Referring Provider Internal Medicine; Visit Provider Internal Medicine
DX: N95.0 Postmenopausal bleeding (principal); D25.9 Leiomyoma of uterus, unspecified; N88.8 Other specified noninflammatory disorders of cervix uteri
CPT/HCPCS: 76830; 76856

== ENCOUNTER → 2023-08-06 15:11 | Outpatient (CLI) | payer MEDICARE, OTHER, SELFPAY ==
[2023-05-26 14:04] VITALS: BMI 24.3
[2023-08-06 16:29] LABS: Add Manual Diff / Slide Review NO; Basophils Absolute Auto 0 /uL (0-100); Basophils Percent Auto 0.3 % (0-2); Eosinophils Absolute Auto 0 /uL (0-450); Hematocrit 43.1 % (36-46); Hemoglobin 14.4 g/dL (12.0-16.0); Lymphocytes Absolute Auto 600 /uL (1100-4500); Lymphocytes Percent Auto 6.2 % (25-40); Mean Corpuscular HGB Conc 33.5 % (30-36); Mean Corpuscular Hemoglobin 35.8 PG (26-34); Mean Corpuscular Volume 106.9 fL (80-100); Monocytes Absolute Auto 400 /uL (0-900); Neutrophils Absolute Auto 8000 /uL (1500-7000); Neutrophils Percent Auto 88.5 % (50-75); Platelet Count 261 X10^3/uL (150-400); Red Blood Cell Count 4.03 X10^6/uL (4.0-5.2); Red Cell Distribution Width 14.6 % (11.6-14.8)
[2023-08-06 16:59] LABS: Alanine Aminotransferase 24 IU/L (<35); Albumin 4.2 g/dL (3.5-5.0); Albumin Globulin Ratio 1.4 (1.0-2.8); Alkaline Phosphatase 66 U/L (38-126); Aspartate Aminotransferase 32 IU/L (14-36); BUN Creatinine Ratio 18.2 (6-22); Bilirubin Total 0.9 mg/dL (0.2-1.3); Blood Urea Nitrogen 12 mg/dL (7-17); Calcium 9.6 mg/dL (8.4-10.2); Carbon Dioxide 27 mmol/L (22-32); Chloride 100 mmol/L (98-107); Creatine Kinase 38 U/L (30-135); Estimated Glomerular Filt Rate > 60 mL/min (>60); Glucose 171 mg/dL (80-110); HEMOLYSIS 18 (0-50); Potassium 3.7 mmol/L (3.4-5.1); Sodium 134 mmol/L (137-145); Total Protein 7.2 g/dL (6.3-8.2)
[2023-08-06 17:21] LABS: TSH w/ Reflex to FT4 0.84 uIU/mL (0.47-4.68)
== END ==
PROVIDERS: PCP Internal Medicine; Referring Provider Internal Medicine; Visit Provider Internal Medicine
DX: M06.9 Rheumatoid arthritis, unspecified (principal); M79.10 Myalgia, unspecified site; R23.3 Spontaneous ecchymoses
CPT/HCPCS: 36415; 80053; 82550; 84443; 85025

== ENCOUNTER → 2023-11-19 16:16 | Outpatient (CLI) | payer MEDICARE, OTHER, SELFPAY ==
[2023-05-26 14:04] VITALS: BMI 24.3
[2023-11-19 18:00] LABS: Add Manual Diff / Slide Review NO; Basophils Absolute Auto 100 /uL (0-100); Basophils Percent Auto 1.3 % (0-2); Eosinophils Absolute Auto 0 /uL (0-450); Hematocrit 42.8 % (36-46); Hemoglobin 14.3 g/dL (12.0-16.0); Lymphocytes Absolute Auto 1000 /uL (1100-4500); Lymphocytes Percent Auto 14.5 % (25-40); Mean Corpuscular HGB Conc 33.5 % (30-36); Mean Corpuscular Hemoglobin 35.6 PG (26-34); Mean Corpuscular Volume 106.5 fL (80-100); Monocytes Absolute Auto 1000 /uL (0-900); Monocytes Percent Auto 14.2 % (3-14); Neutrophils Absolute Auto 5000 /uL (1500-7000); Platelet Count 289 X10^3/uL (150-400); Red Blood Cell Count 4.01 X10^6/uL (4.0-5.2); Red Cell Distribution Width 14.7 % (11.6-14.8); White Blood Cell Count 7.1 X10^3/uL (4.5-11.0)
[2023-11-19 18:24] LABS: Erythrocyte Sedimentation Rate 10 MM/HR (0-20)
[2023-11-19 18:30] LABS: Alanine Aminotransferase 18 IU/L (<35); Albumin Globulin Ratio 1.4 (1.0-2.8); Alkaline Phosphatase 63 U/L (38-126); Aspartate Aminotransferase 35 IU/L (14-36); BUN Creatinine Ratio 19.4 (6-22); Bilirubin Total 0.9 mg/dL (0.2-1.3); Blood Urea Nitrogen 12 mg/dL (7-17); C-Reactive Protein Quant 1.1 mg/dL (<1.0); Calcium 9.3 mg/dL (8.4-10.2); Carbon Dioxide 24 mmol/L (22-32); Chloride 102 mmol/L (98-107); Estimated Glomerular Filt Rate > 60 mL/min (>60); Globulin 2.8 g/dL (1.7-4.1); Glucose 117 mg/dL (80-110); HEMOLYSIS 17 (0-50); Potassium 4.1 mmol/L (3.4-5.1); Sodium 133 mmol/L (137-145); Total Protein 6.8 g/dL (6.3-8.2)
[2023-11-19 18:31] LABS: Rheumatoid Factor < 8.6 IU/mL (<12.0)
[2023-11-19 20:18] LABS: Hep C Virus Ab w/Reflex Quant NEGATIVE s/c (NEGATIVE)
[2023-11-23 15:29] LABS: QuantiFERON Mitogen Value >10.00 IU/mL (.); QuantiFERON Nil Value 0.11 IU/mL (.); QuantiFERON TB Gold Plus Negative (Negative); QuantiFERON TB1 Ag Value 0.11 IU/mL (.)
[2023-11-24 19:16] LABS: CCP Antibodies IgG/IgA 6 units (0-19)
[2023-11-25 18:04] LABS: Hepatitis B Virus HBV DNA not detected IU/mL (.)
== END ==
PROVIDERS: PCP Internal Medicine; Referring Provider Internal Medicine Rheumatology; Visit Provider Internal Medicine Rheumatology
DX: M06.09 Rheumatoid arthritis without rheumatoid factor, multiple sites (principal); Z79.899 Other long term (current) drug therapy
CPT/HCPCS: 36415; 80053; 85025; 85651; 86140; 86200; 86430; 86480; 86803

== ENCOUNTER → 2024-11-01 14:40 | Outpatient (CLI) | payer MEDICARE, OTHER, SELFPAY ==
[2023-05-26 14:04] VITALS: BMI 24.3
--- NOTE | 2024-11-01 14:41 | DI.RAD.S_ITS ---
PROCEDURE: XR CHEST 2V INDICATIONS: cough TECHNIQUE: 2 views of the chest were acquired. COMPARISON: None. FINDINGS: Surgical changes and devices: None. Lungs and pleura: Lungs are clear. No definite pleural effusions or pneumothorax. Minimal blunting right costophrenic angle could represent atelectasis or scarring nonspecific. Mediastinum: Mediastinal contours are normal. Heart size is normal. Bones and chest wall: No suspicious bony abnormalities. Soft tissues appear unremarkable. Post cervical fusion hardware. IMPRESSION: Minimal blunting right costophrenic angle may represent atelectasis or scarring non-specific. Dictated by: Darrell Huerta M.D. on 11/01/2024 at 15:26 Approved by: Darrell Huerta M.D. on 11/01/2024 at 15:28
== END ==
PROVIDERS: PCP Internal Medicine; Referring Provider Internal Medicine; Visit Provider Internal Medicine
DX: R05.9 Cough, unspecified (principal)
CPT/HCPCS: 71046

== ENCOUNTER → 2025-01-12 09:51 | Outpatient (CLI) | payer MEDICARE, OTHER, SELFPAY ==
[2023-05-26 14:04] VITALS: BMI 24.3
--- NOTE | 2025-01-12 09:52 | DI.RAD.S_ITS ---
PROCEDURE: XR LUMBAR SPINE 2-3V INDICATIONS: left sciatica/pain TECHNIQUE: 3 views of the lumbar spine were acquired. COMPARISON: [facility], CR, XR LUMBAR SPINE 2-3V, 11/03/2021, 14:57. FINDINGS: Bones: 5 [id number] vertebrae are present. Mild dextroscoliosis has its apex about the L2 vertebral body. Hardware noted status post bilateral posterior pedicle screw fixation at the L3-L4 level with interbody disc spacer. No evidence of hardware complication. Grade 1 retrolisthesis of L2 on L3 measures 0.6 cm and grade 1 retrolisthesis of L3 on L4 measures 0.4 cm. Severe L2-L3 and moderate L4-L5 and L5-S1 disc height loss with adjacent endplate sclerosis and associated anterior osteophytosis. No vertebral body compression fractures. No suspicious bony lesions. Soft tissues: Overlying bowel gas pattern is normal. No suspicious soft tissue calcifications. IMPRESSION: Multilevel degenerative and postsurgical change without evidence of hardware complication or acute osseous abnormality. Grade 1 anterolisthesis of L2 on L3 and L3 on L4 noted. Dictated by: Cullen Sheffield M.D. on 01/12/2025 at 16:49 Approved by: Cullen Sheffield M.D. on 01/12/2025 at 16:52
== END ==
PROVIDERS: PCP Internal Medicine; Referring Provider Internal Medicine; Visit Provider Internal Medicine
DX: M47.816 Spondylosis without myelopathy or radiculopathy, lumbar region (principal); M47.817 Spondylosis without myelopathy or radiculopathy, lumbosacral region; M54.9 Dorsalgia, unspecified; M43.16 Spondylolisthesis, lumbar region; Z98.1 Arthrodesis status
CPT/HCPCS: 72100

== ENCOUNTER → 2025-01-20 12:13 | Outpatient (CLI) | payer MEDICARE, OTHER, SELFPAY ==
[2023-05-26 14:04] VITALS: BMI 24.3
[2025-01-20 12:47] LABS: Add Manual Diff / Slide Review NO; Basophils Absolute Auto 0 /uL (0-100); Basophils Percent Auto 0.5 % (0-2); Eosinophils Absolute Auto 100 /uL (0-450); Eosinophils Percent Auto 1.1 % (2-4); Hematocrit 45.8 % (36-46); Hemoglobin 15.5 g/dL (12.0-16.0); Lymphocytes Absolute Auto 1500 /uL (1100-4500); Lymphocytes Percent Auto 15.8 % (25-40); Mean Corpuscular HGB Conc 33.7 % (30-36); Mean Corpuscular Hemoglobin 34.9 PG (26-34); Mean Corpuscular Volume 103.5 fL (80-100); Monocytes Absolute Auto 1000 /uL (0-900); Monocytes Percent Auto 10.7 % (3-14); Neutrophils Absolute Auto 6800 /uL (1500-7000); Neutrophils Percent Auto 71.9 % (50-75); Platelet Count 275 X10^3/uL (150-400); Red Blood Cell Count 4.43 X10^6/uL (4.0-5.2); Red Cell Distribution Width 14.7 % (11.6-14.8); White Blood Cell Count 9.5 X10^3/uL (4.5-11.0)
[2025-01-20 13:22] LABS: Alanine Aminotransferase 31 IU/L (<35); Albumin 3.8 g/dL (3.5-5.0); Albumin Globulin Ratio 1.7 (1.0-2.8); Alkaline Phosphatase 60 U/L (38-126); Aspartate Aminotransferase 33 IU/L (14-36); BUN Creatinine Ratio 26.4 (6-22); Bilirubin Total 1.2 mg/dL (0.2-1.3); Blood Urea Nitrogen 14 mg/dL (7-17); Calcium 9.1 mg/dL (8.4-10.2); Carbon Dioxide 24 mmol/L (22-32); Chloride 104 mmol/L (98-107); Estimated Glomerular Filt Rate > 60 mL/min (>60); Globulin 2.3 g/dL (1.7-4.1); Glucose 117 mg/dL (80-110); HEMOLYSIS 27 (0-50); Potassium 4.1 mmol/L (3.4-5.1); Sodium 136 mmol/L (137-145); Total Protein 6.1 g/dL (6.3-8.2)
[2025-01-20 13:56] LABS: TSH w/ Reflex to FT4 1.61 uIU/mL (0.47-4.68)
== END ==
PROVIDERS: PCP Internal Medicine; Referring Provider Internal Medicine; Visit Provider Internal Medicine
DX: R60.0 Localized edema (principal); L40.50 Arthropathic psoriasis, unspecified; E80.4 Gilbert syndrome
CPT/HCPCS: 36415; 80053; 84443; 85025

== ENCOUNTER 2025-02-20 13:19 | Inpatient (IN) | payer MEDICARE, OTHER, SELFPAY ==
[2023-05-26 14:04] VITALS: BMI 24.3
[2025-02-20] VITALS (20 sets, daily range): BP systolic 114–149; BP diastolic 68–94; PULSE 75–97; RESP 17–49; TEMP 36.3–36.5; O2SAT 88–95; BMI 17.8
--- NOTE | 2025-02-20 13:39 | DI.RAD.S_ITS ---
PROCEDURE: XR CHEST 1V INDICATIONS: altered mental status TECHNIQUE: One view of the chest was acquired. COMPARISON: [facility], CR, XR CHEST 2V, 11/01/2024, 14:50. FINDINGS: Surgical changes and devices: Postsurgical changes are seen in visualized mid to lower cervical spine. Lungs and pleura: Subtle hazy opacities are noted in left lung field. No pleural effusions or pneumothorax. Mediastinum: Mediastinal contours appear normal. Heart size is normal. Bones and chest wall: No suspicious bony lesions. Overlying soft tissues appear unremarkable. IMPRESSION: Ill-defined hazy opacities scattered in left lung field concerning for left-sided pulmonary infiltrates. Clinical and radiographic follow-up is recommended. No pleural effusion or pneumothorax. Dictated by: Romeo Mckeon M.D. on 02/20/2025 at 14:53 Approved by: Romeo Mckeon M.D. on 02/20/2025 at 14:59
--- NOTE | 2025-02-20 13:52 | EKG_ITS ---
[place] [address] [address] [place] [id number] Test Date: 2025-02-20 Pat Name: Kelsie Hassan Department: [facility] Room: Gender: Female [employer] Operations Manager: MARCO : 1945 Requested By: Order Number: [id number] Reading MD: Ilir Dobbins MD Measurements Intervals [place] Rate: 90 P: 45 IA: 138 QRS: -81 QRSD: 108 T: 47 QT: 386 QTc: 472 Interpretive Statements Sinus rhythm with premature atrial complexes Left axis deviation Incomplete right bundle branch block T wave abnormality, consider anterior ischemia NO PRIOR TRACING Electronically Signed On 02-20-2025 14:32:23 PDT by Ilir Dobbins MD
--- NOTE | 2025-02-20 14:29 | DI.CT.S_ITS ---
PROCEDURE: CT HEAD/BRAIN WO CON INDICATIONS: weak and altered mental status TECHNIQUE: Noncontrast 4.5 mm thick angled axial sections acquired from the foramen magnum to the vertex, with coronal and sagittal reformats. For radiation dose reduction, the following was used: automated exposure control, adjustment of mA and/or kV according to patient size. COMPARISON: [facility], CR, XR CHEST 1V, 02/20/2025, 13:46. [facility], CT, CT HEAD WITHOUT CONTRAST, 03/30/2024, 21:39. FINDINGS: Image quality: Diagnostic. CSF spaces: Basal cisterns are patent. No extra-axial fluid collections. The ventricles are symmetric in size and shape. Brain: No intracranial bleeds or mass effect. There is cerebral volume loss, with resultant ventricular and sulcal prominence. There are periventricular and deep white matter chronic small vessel ischemic changes. There is intracranial internal carotid artery atherosclerosis. Skull and face: Calvarium and visualized facial bones appear intact, without suspicious lesions. Sinuses: There is focal opacification of the left sphenoid sinus. Visualized sinuses and mastoids otherwise appear clear. IMPRESSION: No acute intracranial pathology. To the limits of this noncontrast study, no findings of intracranial masses or mass effect can be seen. If there is strong clinical suspicion for an acute stroke, please consider a brain MRI for further evaluation, as it is more sensitive (assuming that there is no contraindication to MRI). Dictated by: Khanh Calzada M.D. on 02/20/2025 at 14:04 Approved by: Khanh Calzada M.D. on 02/20/2025 at 14:05
[2025-02-20 14:34] LABS: Add Manual Diff / Slide Review NO; Basophils Absolute Auto 100 /uL (0-100); Basophils Percent Auto 0.8 % (0-2); Eosinophils Absolute Auto 0 /uL (0-450); Eosinophils Percent Auto 0.1 % (2-4); Hematocrit 43.2 % (36-46); Hemoglobin 14.7 g/dL (12.0-16.0); Lymphocytes Absolute Auto 800 /uL (1100-4500); Lymphocytes Percent Auto 8.5 % (25-40); Mean Corpuscular Hemoglobin 34.1 PG (26-34); Mean Corpuscular Volume 100.2 fL (80-100); Monocytes Absolute Auto 200 /uL (0-900); Monocytes Percent Auto 2.4 % (3-14); Neutrophils Absolute Auto 8000 /uL (1500-7000); Neutrophils Percent Auto 88.2 % (50-75); Platelet Count 227 X10^3/uL (150-400); Red Blood Cell Count 4.31 X10^6/uL (4.0-5.2); Red Cell Distribution Width 14.5 % (11.6-14.8); White Blood Cell Count 9.1 X10^3/uL (4.5-11.0)
[2025-02-20 14:46] LABS: Alanine Aminotransferase 30 IU/L (<35); Albumin 3.3 g/dL (3.5-5.0); Albumin Globulin Ratio 1.1 (1.0-2.8); Alkaline Phosphatase 104 U/L (38-126); Aspartate Aminotransferase 57 IU/L (14-36); BUN Creatinine Ratio 44.9 (6-22); Bilirubin Total 1.2 mg/dL (0.2-1.3); Blood Urea Nitrogen 22 mg/dL (7-17); Calcium 8.9 mg/dL (8.4-10.2); Carbon Dioxide 22 mmol/L (22-32); Chloride 104 mmol/L (98-107); Creatine Kinase < 20 U/L (30-135); Estimated Glomerular Filt Rate > 60 mL/min (>60); Ethanol (ETOH) < 10 mg/dL; Glucose 117 mg/dL (70-99); HEMOLYSIS 15 (0-50); Lactate (Lactic Acid) 1.5 mmol/L (0.7-2.1); Potassium 3.6 mmol/L (3.4-5.1); Sodium 135 mmol/L (137-145); Total Protein 6.3 g/dL (6.3-8.2)
[2025-02-20 14:58] LABS: Troponin I 0.069 ng/mL (0.01-0.034)
[2025-02-20 15:02] LABS: Procalcitonin 0.224 ng/mL (<0.5)
--- NOTE | 2025-02-20 15:23 | EKG_ITS ---
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
--- NOTE | 2025-02-20 15:23 | ED_ITS ---
HPI - Altered Mental Status General Chief Complaint: Altered Mental Status Stated Complaint: has trouble swallowing, not eating much Time Seen by Provider: 02/20/25 14:29 History of Present Illness HPI narrative: Patient is a 79-year-old female history of sciatic pain presenting today with increased confusion. at bedside reports she has had decreased appetite over the last few days. Becoming more confused. Patient reports that she has pain all over her body. She was afebrile vitals are stable. Denies specific chest pain or shortness of breath Nursing triage no reports for weight loss failure to thrive. Nothing about inability to swallow or not wanting to eat. also reports that she has been quite sedentary due to all of her pain. She does take hydrocodone daily for chronic pain. He has also been using some CBD cream as well. Patient is overall poor historian has been normal complaints. Related Data Home Medications Medication Instructions Recorded Confirmed gabapentin 300 mg capsule 300 mg PO BEDTIME ##0 08/28/16 01/20/25 (Neurontin) ferrous sulfate 325 mg (65 mg 325 mg PO DAILY 11/12/18 01/20/25 iron) tablet calcium carbonate (Calcium 600) 1,200 mg PO DAILY 09/19/19 01/20/25 cholecalciferol (vitamin D3) 25 2,000 unit PO DAILY 09/19/19 01/20/25 mcg (1,000 unit) capsule Vitamin B12 1 tab PO DAILY 02/18/21 01/20/25 methotrexate sodium 2.5 mg tablet 7.5 mg PO QWEEK 02/18/21 01/20/25 folic acid 1 mg tablet 1 mg PO DAILY 08/19/21 01/20/25 infliximab 100 mg intravenous IV 12/15/23 01/20/25 solution (Remicade) Previous Rx's Medication Instructions Recorded lidocaine 4 % topical patch 1 patch topical DAILY PRN pain #15 11/03/21 ea azelastine 205.5 mcg (0.15 %) 2 spray intranasal BID #30 mL 05/26/23 nasal spray Disabled Parking #1 ea 01/14/24 sumatriptan succinate 50 mg tablet See Rx Instructions PO .COMPLEX 04/11/24 #72 tabs meloxicam 7.5 mg tablet 7.5 mg PO DAILY #30 tabs 05/16/24 progesterone micronized 100 mg 100 mg PO DAILY #90 caps 08/24/24 capsule hydrocodone 10 mg-acetaminophen 1 - 2 tab PO Q4-6H PRN pain #120 10/25/24 325 mg tablet tabs hydrocodone 5 mg-acetaminophen 325 1 - 2 tab PO Q4-6H PRN pain #120 25 mg tablet tabs estradiol 0.05 mg/24 hr weekly 1 patch topical QWEEK #12 ea 11/07/24 transdermal patch methylprednisolone 4 mg tablet 4 mg PO DAILY back pain flare #90 11/24/24 tabs baclofen 5 mg tablet 5 mg PO BEDTIME #30 tabs 12/09/24 dexamethasone 2 mg tablet 2 mg PO DAILY #30 tabs 01/20/25 hydrocodone 5 mg-acetaminophen 325 1 - 2 tab PO Q4-6H PRN pain #120 02/09/25 mg tablet tabs pantoprazole 40 mg tablet,delayed 40 mg PO DAILY #90 tabs 02/16/25 release Allergies Allergy/AdvReac Type Severity Reaction Status Date / Time Penicillins Allergy Severe Swelling Verified 02/20/25 13:25 of Lip/Tongue/Throat codeine AdvReac Mild H/A Verified 02/20/25 13:25 Patient History Medical History Chronic headaches Peripheral edema Uncomplicated opioid dependence Psoriatic arthritis Chronic diarrhea Diverticular disease of colon Gilbert syndrome Pyloric ulcer (~02/2018) History of migraine headaches Psoriasis History of adenomatous polyp of colon (06/27/11) Rheumatoid arthritis (06/06/11) Surgical History Status post spinal surgery History of carpal tunnel repair Status post tubal ligation Family History Brother Age: 78 Hypertension High cholesterol Child Age: 60 Mental health problem Child Age: 57 MS (multiple sclerosis) Father Age: 103 Mental health problem Dementia Cardiac disease Mother Family history of colon cancer Colon cancer Cardiac disease Sister Age: 76 Hypertension High cholesterol Social History household members: spouse Smoking Status: Former smoker alcohol intake: current Smoking Status: Former smoker alcohol intake frequency: 0-2 drinks per day Alcohol type: wine Exam Initial Vital Signs Initial Vital Signs: Vital Signs Temperature 97.7 F 02/20/25 13:25 Pulse Rate 92 H 02/20/25 13:25 Respiratory Rate 17 02/20/25 13:25 Blood Pressure 131/74 02/20/25 13:25 Pulse Oximetry 91 02/20/25 13:25 Oxygen Delivery Method Room Air 02/20/25 13:25 GENERAL: Alert 79-year-old female awake mildly confused HEENT: Head atraumatic,EOMI, pupils reactive, face symmetric, dry mucous membranes CARDIOVASCULAR: Regular rate and rhythm without murmurs, rubs or gallops. RESPIRATORY: Breath sounds equal bilaterally, no wheezes rales or rhonchi. ABDOMEN: Soft, nontender. Normoactive bowel sounds all 4 quadrants. No guarding or rebound. : No CVA tenderness EXTREMITIES: Normal range of motion, no clubbing or edema.. Left leg is more swollen than the right but reports it is significantly improved SKIN: Warm, dry, no laceration, no petechiae, no rashes or lesions. Course Orders Ordered: ED Orders 02/20/25 13:39 XR chest 1V Stat EKG-12 Lead Stat 02/20/25 14:15 Complete Blood Count AUTO DIFF Stat Comprehensive Metabolic Panel Stat Ethanol (ETOH) Stat Lactate (Lactic Acid) Stat Procalcitonin Stat Troponin & CK Cardiac Panel Stat 02/20/25 14:29 CT head/brain wo con Stat 02/20/25 15:23 EKG-12 Lead Stat 02/20/25 15:24 Urine Culture Stat Urine Drug Screen, Rapid Stat Urine Microscopic Stat 02/20/25 16:15 Blood Culture Stat Troponin & CK Cardiac Panel Stat 02/20/25 17:33 CT angio chest PE protocol Stat 02/20/25 18:04 Covid-19 + FLU A/B + RSV - PCR Stat Sodium Chloride (Normal Saline 0.9%) 1,000 mls @ 100 mls/hr IV CONT GEORGINA Last Admin: 02/20/25 17:50 Dose: 100 mls/hr Documented By: TC Discontinued Medications Hydrocodone Bitart/Acetaminophen (Hydrocodone/Acet 5/325 Tablet) 1 tab PO NOW ONE Stop: 02/20/25 16:03 Last Admin: 02/20/25 16:24 Dose: 1 tab Documented By: TC Ceftriaxone Sodium 1,000 mg/ (Sodium Chloride) 100 mls @ 200 mls/hr IV NOW ONE Stop: 02/20/25 16:03 Last Infusion: 02/20/25 17:00 Dose: Infused Documented By: Admin: 02/20/25 16:24 Dose: 200 mls/hr Documented By: VIKTOR Azithromycin 500 mg/ Dextrose 250 mls @ 250 mls/hr IV NOW ONE Stop: 02/20/25 17:31 Last Admin: 02/20/25 17:53 Dose: 250 mls/hr Documented By: VIKTOR Vital Signs Vital signs: Vital Signs - 8 hr 02/20/25 13:25 02/20/25 13:46 02/20/25 13:59 Temperature 97.7 F Pulse Rate 92 H 97 H 91 H Respiratory Rate 17 19 Blood Pressure 131/74 Pulse Oximetry 91 91 Oxygen Delivery Method Room Air 02/20/25 13:59 02/20/25 14:00 02/20/25 14:00 Temperature Pulse Rate 92 H Respiratory Rate 26 H Blood Pressure 149/94 H 143/85 H Pulse Oximetry 91 Oxygen Delivery Method 02/20/25 14:30 02/20/25 14:30 02/20/25 14:56 Temperature Pulse Rate 94 H Respiratory Rate 28 H Blood Pressure 148/81 H 131/79 Pulse Oximetry 90 L Oxygen Delivery Method 02/20/25 14:56 02/20/25 15:00 02/20/25 15:00 Temperature Pulse Rate 93 H 95 H Respiratory Rate 26 H 36 H Blood Pressure 128/73 Pulse Oximetry 90 L 89 L Oxygen Delivery Method 02/20/25 15:30 02/20/25 15:30 02/20/25 16:00 Temperature Pulse Rate 94 H Respiratory Rate 24 Blood Pressure 114/71 125/76 Pulse Oximetry 89 L Oxygen Delivery Method 02/20/25 16:00 02/20/25 16:30 02/20/25 16:30 Temperature Pulse Rate 90 90 Respiratory Rate 22 25 H Blood Pressure 139/79 Pulse Oximetry 90 L 91 Oxygen Delivery Method 02/20/25 17:00 02/20/25 17:00 02/20/25 17:30 Temperature Pulse Rate 90 82 Respiratory Rate 24 18 Blood Pressure 141/74 H Pulse Oximetry 90 L 91 Oxygen Delivery Method 02/20/25 17:30 02/20/25 18:21 02/20/25 18:30 Temperature Pulse Rate 94 H 76 Respiratory Rate 17 49 H Blood Pressure 124/70 Pulse Oximetry 90 L 90 L Oxygen Delivery Method 02/20/25 19:00 Temperature Pulse Rate 77 Respiratory Rate 46 H Blood Pressure Pulse Oximetry 90 L Oxygen Delivery Method MDM - Altered Mental Status Lab Data 02/20/25 14:15 02/20/25 14:15 Labs: Lab Results 02/20/25 02/20/25 02/20/25 Range/Units 14:15 15:24 16:15 WBC 9.1 (4.5-11.0) X10^3/uL RBC 4.31 (4.0-5.2) X10^6/uL Hgb 14.7 (12.0-16.0) g/dL Hct 43.2 (36-46) % MCV 100.2 H (80-100) fL MCH 34.1 H (26-34) PG MCHC 34.0 (30-36) % RDW 14.5 (11.6-14.8) % Plt Count 227 (150-400) X10^3/uL Neut % (Auto) 88.2 H (50-75) % Lymph % (Auto) 8.5 L (25-40) % Lynn % (Auto) 2.4 L (3-14) % Eos % (Auto) 0.1 L (2-4) % Baso % (Auto) 0.8 (0-2) % Neut # (Auto) 8000 H (4946-7325) /uL Lymph # (Auto) 800 L (7741-5179) /uL Lynn # (Auto) 200 (0-900) /uL Eos # (Auto) 0 (0-450) /uL Baso # (Auto) 100 (0-100) /uL Sodium 135 L (137-145) mmol/L Potassium 3.6 (3.4-5.1) mmol/L Chloride 104 (98-107) mmol/L Carbon Dioxide 22 (22-32) mmol/L BUN 22 H (7-17) mg/dL Creatinine 0.49 L (0.52-1.04) mg/dL Estimated GFR > 60 (>60) mL/min BUN/Creatinine Ratio 44.9 H (6-22) Glucose 117 H (70-99) mg/dL Lactate 1.5 (0.7-2.1) mmol/L Calcium 8.9 (8.4-10.2) mg/dL Total Bilirubin 1.2 (0.2-1.3) mg/dL AST 57 H (14-36) IU/L ALT 30 (<35) IU/L Alkaline Phosphatase 104 (38-126) U/L Total Creatine Kinase < 20 L 21 L (30-135) U/L Troponin I 0.069 H 0.064 H (0.01-0.034) ng/mL Total Protein 6.3 (6.3-8.2) g/dL Albumin 3.3 L (3.5-5.0) g/dL Globulin 3.0 (1.7-4.1) g/dL Albumin/Globulin Ratio 1.1 (1.0-2.8) Procalcitonin 0.224 (<0.5) ng/mL Urine RBC 0-1/hpf (0-5/HPF) Urine WBC 1-5/hpf (0-5/HPF) Ur Squamous Epith Cells 1-5 /hpf (0-5/HPF) Amorphous Sediment 1+ Urine Bacteria Many (>30) H (None) Vol Urine Centrifuged 2 U Opiates 300ng/mL cut Positive H (Negative) Ur Oxycodone Screen Positive H (Negative) Urine Methadone Screen Negative (Negative) Ur Barbiturates Screen Negative (Negative) U Tricyclic Antidepress Negative (Negative) Ur Phencyclidine Scrn Negative (Negative) Ur Amphetamines Screen Negative (Negative) U Methamphetamines Scrn Negative (Negative) Ur MDMA Scrn (Ecstasy) Negative (Negative) U Benzodiazepines Scrn Negative (Negative) Urine Cocaine Screen Negative (Negative) U Marijuana (THC) Screen Positive H (Negative) Urine pH Normal (Normal) Urine Specific Marshall Normal (Normal) Ethyl Alcohol < 10 ( - 10) mg/dL Ur Creatinine Normal (Normal) SARS-CoV-2 (PCR) (Negative) Influenza A (RT-PCR) (NEGATIVE) Influenza B (RT-PCR) (NEGATIVE) RSV (PCR) (Negative) 02/20/25 Range/Units 18:04 WBC (4.5-11.0) X10^3/uL RBC (4.0-5.2) X10^6/uL Hgb (12.0-16.0) g/dL Hct (36-46) % MCV (80-100) fL MCH (26-34) PG MCHC (30-36) % RDW (11.6-14.8) % Plt Count (150-400) X10^3/uL Neut % (Auto) (50-75) % Lymph % (Auto) (25-40) % Lynn % (Auto) (3-14) % Eos % (Auto) (2-4) % Baso % (Auto) (0-2) % Neut # (Auto) (8326-0431) /uL Lymph # (Auto) (7274-8303) /uL Lynn # (Auto) (0-900) /uL Eos # (Auto) (0-450) /uL Baso # (Auto) (0-100) /uL Sodium (137-145) mmol/L Potassium (3.4-5.1) mmol/L Chloride (98-107) mmol/L Carbon Dioxide (22-32) mmol/L BUN (7-17) mg/dL Creatinine (0.52-1.04) mg/dL Estimated GFR (>60) mL/min BUN/Creatinine Ratio (6-22) Glucose (70-99) mg/dL Lactate (0.7-2.1) mmol/L Calcium (8.4-10.2) mg/dL Total Bilirubin (0.2-1.3) mg/dL AST (14-36) IU/L ALT (<35) IU/L Alkaline Phosphatase (38-126) U/L Total Creatine Kinase (30-135) U/L Troponin I (0.01-0.034) ng/mL Total Protein (6.3-8.2) g/dL Albumin (3.5-5.0) g/dL Globulin (1.7-4.1) g/dL Albumin/Globulin Ratio (1.0-2.8) Procalcitonin (<0.5) ng/mL Urine RBC (0-5/HPF) Urine WBC (0-5/HPF) Ur Squamous Epith Cells (0-5/HPF) Amorphous Sediment Urine Bacteria (None) Vol Urine Centrifuged U Opiates 300ng/mL cut (Negative) Ur Oxycodone Screen (Negative) Urine Methadone Screen (Negative) Ur Barbiturates Screen (Negative) U Tricyclic Antidepress (Negative) Ur Phencyclidine Scrn (Negative) Ur Amphetamines Screen (Negative) U Methamphetamines Scrn (Negative) Ur MDMA Scrn (Ecstasy) (Negative) U Benzodiazepines Scrn (Negative) Urine Cocaine Screen (Negative) U Marijuana (THC) Screen (Negative) Urine pH (Normal) Urine Specific Marshall (Normal) Ethyl Alcohol ( - 10) mg/dL Ur Creatinine (Normal) SARS-CoV-2 (PCR) Negative (Negative) Influenza A (RT-PCR) Flu a negative (NEGATIVE) Influenza B (RT-PCR) Flu b negative (NEGATIVE) RSV (PCR) Negative (Negative) Point of Care Testing Glucose POC 123 Urine Dip Bedside Urine Glucose Negative Bedside Urine Bilirubin - Negative Bedside Urine Ketone ++ 40 Urine Specific Marshall 1.025 Bedside Urine Occult Blood + Bedside Urine pH 6.0 Bedside Urine Protein + 30 Bedside Urine Urobilinogen +/- 1mg Bedside Urine Nitrite + Positive Bedside Urine Leukocytes - Negative Esterase Imaging Data CT scan - head: Radiologist's Impression: PROCEDURE: CT HEAD/BRAIN WO CON INDICATIONS: weak and altered mental status TECHNIQUE: Noncontrast 4.5 mm thick angled axial sections acquired from the foramen magnum to the vertex, with coronal and sagittal reformats. For radiation dose reduction, the following was used: automated exposure control, adjustment of mA and/or kV according to patient size. COMPARISON: [facility], CR, XR CHEST 1V, 02/20/2025, 13:46. [facility], CT, CT HEAD WITHOUT CONTRAST, 03/30/2024, 21:39. FINDINGS: Image quality: Diagnostic. CSF spaces: Basal cisterns are patent. No extra-axial fluid collections. The ventricles are symmetric in size and shape. Brain: No intracranial bleeds or mass effect. There is cerebral volume loss, with resultant ventricular and sulcal prominence. There are periventricular and deep white matter chronic small vessel ischemic changes. There is intracranial internal carotid artery atherosclerosis. Skull and face: Calvarium and visualized facial bones appear intact, without suspicious lesions. Sinuses: There is focal opacification of the left sphenoid sinus. Visualized sinuses and mastoids otherwise appear clear. IMPRESSION: No acute intracranial pathology. To the limits of this noncontrast study, no findings of intracranial masses or mass effect can be seen. If there is strong clinical suspicion for an acute stroke, please consider a brain MRI for further evaluation, as it is more sensitive (assuming that there is no contraindication to MRI). Dictated by: Khanh Calzada M.D. on 02/20/2025 at 14:04 Chest x-ray: Radiologist's Impression: PROCEDURE: XR CHEST 1V INDICATIONS: altered mental status TECHNIQUE: One view of the chest was acquired. COMPARISON: [facility], , XR CHEST 2V, 11/01/2024, 14:50. FINDINGS: Surgical changes and devices: Postsurgical changes are seen in visualized mid to lower cervical spine. Lungs and pleura: Subtle hazy opacities are noted in left lung field. No pleural effusions or pneumothorax. Mediastinum: Mediastinal contours appear normal. Heart size is normal. Bones and chest wall: No suspicious bony lesions. Overlying soft tissues appear unremarkable. IMPRESSION: Ill-defined hazy opacities scattered in left lung field concerning for left- sided pulmonary infiltrates. Clinical and radiographic follow-up is recommended. No pleural effusion or pneumothorax. Dictated by: Romeo Mckeon M.D. on 02/20/2025 at 14:53 Approved by: Romeo Mckeon M.D. on 02/20/2025 at 14:59 ECG Data Attestation: I personally reviewed and interpreted this ECG as follows: Prior ECG tracings: not available for review Interpretation: EKG1 sinus rhythm rate 90 here interval 138 QRS 8 QTC 472 right bundle-branch block no ST changes no priors to compare EKG 2. Sinus rhythm rate 92 AR interval 154 QRS [address] changes no T- wave inversions right bundle-branch block noted similar to previous EKGs T QTC was previously long at 472 as well MDM Narrative Medical decision making narrative: [facility] CC: Confusion weakness Complicating co-morbidities: Chronic pain, gilberts syndrome Data collected from: Nursing triage note Medical records reviewed: Previous PCP note Differential considered: Sepsis, intracranial hemorrhage mass dementia Exam documented above, pertinent findings include: Alert confused dry mucous membranes shallow breathing but rest sounds diminished clear no significant wheezing abdomen soft left leg more swollen than the right leg Lab Test results independently reviewed as above. Pertinent findings: WBC 9.1 hemoglobin 14.7 hematocrit 43.2 platelets 227 CMP sodium 139 potassium 3.6 chloride 104 carbon dioxide 22 BUN 22 creatinine 0.4 glucose 117 Lactate 1.5, procalcitonin 0.224 Troponin 0.069 with repeat 0.064 Independently reviewed EKG as above No obvious ischemic changes right bundle no prior EKGs Imaging studies independently reviewed: Head CT no acute intracranial process Chest x-ray scattered left lung field concerning for left-sided pulmonary infiltrate CT angio PE no pulmonary embolus left greater than right ground-glass opacity suspicious for edema versus atypical viral pneumonia Consultations:Dr. Ambrocio accepts patient Treatments: Rocephin azithromycin [place] Re-evaluations: Patient overall appears well she does shallow breaths remains mildly hypoxic with room air oxygen 89-91% Discussion: Patient is a 71-year-old female history of chronic back pain presenting today with altered mental status decreased appetite. She does report maybe possibility of difficulty swallowing but she was managing her secretions fine. She does not appear in respiratory distress oxygen is slightly low 89 91% on room air ultimately does require 1-2 L of nasal cannula. Blood work is overall reassuring she has no leukocytosis no elevated lactic acid CT and x-ray both show pneumonia. She does not meet any current sepsis criteria blood cultures are pending. She does have indeterminate troponins which are stable without any kind of EKGs changes. She has no known history of coronary artery disease. Likely a demand ischemia from mild hypoxia no evidence of pulmonary embolism on CT. Discharge Plan Departure Patient Disposition: Admitted As Inpatient Clinical Impression: Pneumonia, Acute metabolic encephalopathy Admit Date/Time: 02/20/25 19:35 Admit Provider: Anu Ambrocio
[2025-02-20 15:50] LABS: Amorphous Sediment Urine 1+; Bacteria Urine Many (>30); RBC Urine 0-1/HPF (0-5/HPF); Squamous Epithelial Cell Urine 1-5 /HPF (0-5/HPF); Ur Creatinine Normal (Normal); Ur Specific Gravity Normal (Normal); Urine Volume 2; Urine pH Normal (Normal); WBC Urine 1-5/HPF (0-5/HPF)
[2025-02-20 15:51] LABS: UR Morphine/Opiate cutoff 300 Positive (Negative); Urine Amphetamines Negative (Negative); Urine Barbiturates Negative (Negative); Urine Benzodiazepines Negative (Negative); Urine Cocaine Negative (Negative); Urine MDMA Negative (Negative); Urine Methadone Negative (Negative); Urine Methamphetamines Negative (Negative); Urine Oxycodone Positive (Negative); Urine Phencyclidine Negative (Negative); Urine Tetrahydrocannabinol Positive (Negative); Urine Tricyclic Antidepressant Negative (Negative)
[2025-02-20] MEDS: cefTRIAXone 1,000 MG in SODIUM CHLORIDE 0.9% 100 ML 200 MG IV (16:24)
[2025-02-20] MEDS: HYDROCODONE/ACET 5/325 TABLET 1 TAB PO (16:24)
[2025-02-20 16:40] LABS: Creatine Kinase 21 U/L (30-135)
[2025-02-20 16:53] LABS: Troponin I 0.064 ng/mL (0.01-0.034)
--- NOTE | 2025-02-20 17:33 | DI.CT.S_ITS ---
PROCEDURE: CT ANGIO CHEST PE PROTOCOL INDICATIONS: hypoxia TECHNIQUE: After the administration of intravenous contrast, 2 mm thick sections acquired from the pulmonary apices to the posterior costophrenic angles. 3-dimensional maximum intensity projection (MIP) coronal and sagittal reformats were then acquired through the thorax. For radiation dose reduction, the following was used: automated exposure control, adjustment of mA and/or kV according to patient size. COMPARISON: [facility], CT, CT CHEST ABDOMEN PELVIS WITH TRAUMA, 03/30/2024, 21:39. [facility], CR, XR CHEST 1V, 02/20/2025, 13:46. FINDINGS: Image quality: Diagnostic. Pulmonary arteries: Pulmonary arteries are normal in size, and demonstrate no intraluminal filling defects to suggest central pulmonary embolism. Lower Neck: No enlarged lymph nodes. Thyroid: No thyroid nodules which require sonographic follow up, per consensus guidelines. Axillae: No enlarged lymph nodes. Chest Wall: Unremarkable. Bones: Unremarkable. Lungs and Pleura: Moderate right and trace left pleural effusions. Atelectasis of the adjacent right lung. Ground-glass opacities are seen in both lungs, greater on the left than on the right with areas of interlobular septal thickening. No pneumothorax or pleural effusions. No consolidation or suspicious nodules. Heart: Heart size is normal. No pericardial effusion. Thoracic Vessels: No aortic aneurysm. Mediastinum and Catrina: No enlarged lymph nodes. Esophagus: No wall thickening. No hiatal hernia. Upper Abdomen: Trace upper abdominal ascites. Visualized upper abdomen solid organs and bowel loops appear normal. IMPRESSION: 1. No acute pulmonary embolus. 2. Left greater than right ground-glass opacities suspicious for edema versus an atypical or viral pneumonia. 3. Moderate right and trace left pleural effusions. 4. Trace upper abdominal ascites. Approved by: Joseph Matthews M.D. on 02/20/2025 at 18:52
[2025-02-20] MEDS: SODIUM CHLORIDE 0.9% 1,000 ML 100 ML IV (17:50)
[2025-02-20] MEDS: AZITHROMYCIN 500 MG in DEXTROSE 5% IN WATER 250 ML 250 MG IV (17:53)
[2025-02-20 18:47] LABS: Influenza A - CEPHEID Flu A NEGATIVE (NEGATIVE); Influenza B - CEPHEID Flu B NEGATIVE (NEGATIVE); Respiratory Syncytial Virus Negative (Negative)
[2025-02-20 18:53] LABS: COVID-19 CEPHEID 4-PLEX PCR Negative (Negative)
[2025-02-20 20:18] LABS: NT-proBNP (BNP-Adult 18+) 2460 pg/mL (<450)
--- NOTE | 2025-02-20 23:23 | PC.WOUNDPHOT ---
Blanchable redness to sacrum
[2025-02-21] VITALS: BP 133/79; PULSE 79; RESP 18; TEMP 36.7; O2SAT 96
[2025-02-21 04:00] VITALS: BP 156/85; PULSE 89; RESP 17; TEMP 36.3; O2SAT 91
[2025-02-21 05:43] LABS: Add Manual Diff / Slide Review NO; Basophils Absolute Auto 100 /uL (0-100); Basophils Percent Auto 0.7 % (0-2); Eosinophils Absolute Auto 100 /uL (0-450); Eosinophils Percent Auto 0.8 % (2-4); Hematocrit 41.2 % (36-46); Lymphocytes Absolute Auto 1100 /uL (1100-4500); Lymphocytes Percent Auto 13.4 % (25-40); Mean Corpuscular HGB Conc 33.9 % (30-36); Mean Corpuscular Hemoglobin 34.2 PG (26-34); Mean Corpuscular Volume 100.9 fL (80-100); Monocytes Absolute Auto 200 /uL (0-900); Monocytes Percent Auto 2.6 % (3-14); Neutrophils Absolute Auto 6600 /uL (1500-7000); Neutrophils Percent Auto 82.5 % (50-75); Platelet Count 232 X10^3/uL (150-400); Red Blood Cell Count 4.08 X10^6/uL (4.0-5.2); Red Cell Distribution Width 15.2 % (11.6-14.8)
[2025-02-21 05:56] LABS: BUN Creatinine Ratio 46.9 (6-22); Blood Urea Nitrogen 15 mg/dL (7-17); Calcium 7.9 mg/dL (8.4-10.2); Carbon Dioxide 23 mmol/L (22-32); Chloride 106 mmol/L (98-107); Estimated Glomerular Filt Rate > 60 mL/min (>60); Glucose 81 mg/dL (70-99); Sodium 134 mmol/L (137-145)
[2025-02-21 05:59] LABS: HEMOLYSIS 248 (0-50); Potassium 5.1 mmol/L (3.4-5.1)
[2025-02-21 06:08] LABS: Troponin I 0.079 ng/mL (0.01-0.034)
[2025-02-21] MEDS: ACETAMINOPHEN 325 MG TABLET 650 MG PO (06:28)
--- NOTE | 2025-02-21 07:16 | P.HP_ITS ---
History of Present Illness History of Present Illness Date Patient Seen: 02/21/25 Time Patient Seen: 07:16 Chief complaint: has trouble swallowing, not eating much Narrative: 79-year-old female well known to me with severe rheumatoid and psoriatic arthritis admitted via the emergency department with pneumonia. She presented with spouse who noted increasing confusion decreased appetite over several days. Patient was self was able to endorse body wide pain but denied any specific other symptoms including cough shortness of breath chest pain ER evaluation documented changes on plain film chest x-ray followed by ground- glass changes bilaterally on CT scan. She was mildly hypoxic. She had normal white blood cell count and chemistries essentially unremarkable. Borderline troponin without acute ischemia on ECG. Also normal head CT Tox screen positive for THC and opiates as expected [facility] Medical History Chronic headaches Peripheral edema Uncomplicated opioid dependence Psoriatic arthritis Chronic diarrhea Diverticular disease of colon Gilbert syndrome Pyloric ulcer (~02/2018) History of migraine headaches Psoriasis History of adenomatous polyp of colon (06/27/11) Rheumatoid arthritis (06/06/11) Surgical History Status post spinal surgery History of carpal tunnel repair Status post tubal ligation Family History Brother Age: 78 Hypertension High cholesterol Child Age: 60 Mental health problem Child Age: 57 MS (multiple sclerosis) Father Age: 103 Mental health problem Dementia Cardiac disease Mother Family history of colon cancer Colon cancer Cardiac disease Sister Age: 76 Hypertension High cholesterol Social History household members: spouse Smoking Status: Former smoker alcohol intake: current Meds Home Medications and Allergies Home Medications Medication Instructions Recorded Confirmed Type ferrous sulfate 325 mg (65 mg 325 mg PO DAILY 11/12/18 02/20/25 History iron) tablet calcium carbonate (Calcium 600) 1,200 mg PO DAILY 09/19/19 02/20/25 History cholecalciferol (vitamin D3) 25 2,000 unit PO DAILY 09/19/19 02/20/25 History mcg (1,000 unit) capsule Vitamin B12 1 tab PO DAILY 02/18/21 02/20/25 History methotrexate sodium 2.5 mg tablet 7.5 mg PO QWEEK 02/18/21 02/20/25 History folic acid 1 mg tablet 1 mg PO DAILY 08/19/21 02/20/25 History lidocaine 4 % topical patch 1 patch topical DAILY PRN pain #15 11/03/21 02/20/25 Rx ea azelastine 205.5 mcg (0.15 %) 2 spray intranasal BID #30 mL 05/26/23 02/20/25 Rx nasal spray infliximab 100 mg intravenous 100 mg IV 12/15/23 01/20/25 History solution (Remicade) Disabled Parking #1 ea 01/14/24 02/20/25 Rx sumatriptan succinate 50 mg tablet See Rx Instructions PO .COMPLEX 04/11/24 02/20/25 Rx #72 tabs meloxicam 7.5 mg tablet 7.5 mg PO DAILY #30 tabs 05/16/24 02/20/25 Rx progesterone micronized 100 mg 100 mg PO DAILY #90 caps 08/24/24 02/20/25 Rx capsule hydrocodone 10 mg-acetaminophen 1 - 2 tab PO Q4-6H PRN pain #120 10/25/24 02/20/25 Rx 325 mg tablet tabs estradiol 0.05 mg/24 hr weekly 1 patch topical QWEEK #12 ea 11/07/24 02/20/25 Rx transdermal patch methylprednisolone 4 mg tablet 4 mg PO DAILY back pain flare #90 11/24/24 02/20/25 Rx tabs dexamethasone 2 mg tablet 2 mg PO DAILY #30 tabs 01/20/25 02/20/25 Rx hydrocodone 5 mg-acetaminophen 325 1 - 2 tab PO Q4-6H PRN pain #120 02/09/25 02/20/25 Rx mg tablet tabs pantoprazole 40 mg tablet,delayed 40 mg PO DAILY #90 tabs 02/16/25 02/20/25 Rx release baclofen 5 mg tablet 5 mg PO BEDTIME 02/20/25 02/20/25 History Allergies Allergy/AdvReac Type Severity Reaction Status Date / Time Penicillins Allergy Severe Swelling Verified 02/20/25 13:25 of Lip/Tongue/Throat codeine AdvReac Mild H/A Verified 02/20/25 13:25 Review of Systems Review of Systems ROS: Yes All systems reviewed with the patient and are negative except as otherwise documented Exam Vital Signs (past 8 hours): - 05/06/25 00:00 02/21/25 04:00 Temperature 98.0 F 97.4 F L Pulse Rate 79 89 Respiratory Rate 18 17 Blood Pressure 133/79 156/85 H Pulse Oximetry 96 91 Oxygen Flow Rate 2 2 Fraction of Inspired Oxygen 28 SaO2/FiO2 Ratio 339 Oxygen Delivery Method Room Air Oxygen Flow Rate 2 Narrative Exam Narrative: Elderly female looks uncomfortable lying in her hospital bed HEENT-unremarkable Lungs-can not get good cooperation from patient, but no obvious wheezes or crackles Heart-regular rate and rhythm with what sounds like occasional extrasystoles Abdomen-benign Extremities-no cyanosis clubbing or edema Objective Imaging CT scan - chest: Radiologist's impression: PROCEDURE: CT ANGIO CHEST PE PROTOCOL INDICATIONS: hypoxia TECHNIQUE: After the administration of intravenous contrast, 2 mm thick sections acquired from the pulmonary apices to the posterior costophrenic angles. 3-dimensional maximum intensity projection (MIP) coronal and sagittal reformats were then acquired through the thorax. For radiation dose reduction, the following was used: automated exposure control, adjustment of mA and/or kV according to patient size. COMPARISON: [facility], CT, CT CHEST ABDOMEN PELVIS WITH TRAUMA, 03/30/2024, 21:39. [facility], CR, XR CHEST 1V, 02/20/2025, 13:46. FINDINGS: Image quality: Diagnostic. Pulmonary arteries: Pulmonary arteries are normal in size, and demonstrate no intraluminal filling defects to suggest central pulmonary embolism. Lower Neck: No enlarged lymph nodes. Thyroid: No thyroid nodules which require sonographic follow up, per consensus guidelines. Axillae: No enlarged lymph nodes. Chest Wall: Unremarkable. Bones: Unremarkable. Lungs and Pleura: Moderate right and trace left pleural effusions. Atelectasis of the adjacent right lung. Ground-glass opacities are seen in both lungs, greater on the left than on the right with areas of interlobular septal thickening. No pneumothorax or pleural effusions. No consolidation or suspicious nodules. Heart: Heart size is normal. No pericardial effusion. Thoracic Vessels: No aortic aneurysm. Mediastinum and Catrina: No enlarged lymph nodes. Esophagus: No wall thickening. No hiatal hernia. Upper Abdomen: Trace upper abdominal ascites. Visualized upper abdomen solid organs and bowel loops appear normal. IMPRESSION: 1. No acute pulmonary embolus. 2. Left greater than right ground-glass opacities suspicious for edema versus an atypical or viral pneumonia. 3. Moderate right and trace left pleural effusions. 4. Trace upper abdominal ascites. Approved by: Joseph Matthews M.D. on 02/20/2025 at 18:52 Labs 02/21/25 05:33 02/21/25 05:33 Labs: Laboratory Results - last 24 hr 02/20/25 02/20/25 02/20/25 14:15 15:24 16:15 WBC 9.1 RBC 4.31 Hgb 14.7 Hct 43.2 MCV 100.2 H MCH 34.1 H MCHC 34.0 RDW 14.5 Plt Count 227 Neut % (Auto) 88.2 H Lymph % (Auto) 8.5 L Shoshone % (Auto) 2.4 L Eos % (Auto) 0.1 L Baso % (Auto) 0.8 Neut # (Auto) 8000 H Lymph # (Auto) 800 L Shoshone # (Auto) 200 Eos # (Auto) 0 Baso # (Auto) 100 Sodium 135 L Potassium 3.6 Chloride 104 Carbon Dioxide 22 BUN 22 H Creatinine 0.49 L Estimated GFR > 60 BUN/Creatinine Ratio 44.9 H Glucose 117 H Lactate 1.5 Calcium 8.9 Total Bilirubin 1.2 AST 57 H ALT 30 Alkaline Phosphatase 104 Total Creatine Kinase < 20 L 21 L Troponin I 0.069 H 0.064 H NT-Pro-B Natriuret Pep 2460 H Total Protein 6.3 Albumin 3.3 L Globulin 3.0 Albumin/Globulin Ratio 1.1 Procalcitonin 0.224 Urine RBC 0-1/hpf Urine WBC 1-5/hpf Ur Squamous Epith Cells 1-5 /hpf Amorphous Sediment 1+ Urine Bacteria Many (>30) H Vol Urine Centrifuged 2 U Opiates 300ng/mL cut Positive H Ur Oxycodone Screen Positive H Urine Methadone Screen Negative Ur Barbiturates Screen Negative U Tricyclic Antidepress Negative Ur Phencyclidine Scrn Negative Ur Amphetamines Screen Negative U Methamphetamines Scrn Negative Ur MDMA Scrn (Ecstasy) Negative U Benzodiazepines Scrn Negative Urine Cocaine Screen Negative U Marijuana (THC) Screen Positive H Urine pH Normal Urine Specific [place] Normal Ethyl Alcohol < 10 Ur Creatinine Normal SARS-CoV-2 (PCR) Influenza A (RT-PCR) Influenza B (RT-PCR) RSV (PCR) 02/20/25 02/21/25 18:04 05:33 WBC 8.0 RBC 4.08 Hgb 14.0 Hct 41.2 MCV 100.9 H MCH 34.2 H MCHC 33.9 RDW 15.2 H Plt Count 232 Neut % (Auto) 82.5 H Lymph % (Auto) 13.4 L Shoshone % (Auto) 2.6 L Eos % (Auto) 0.8 L Baso % (Auto) 0.7 Neut # (Auto) 6600 Lymph # (Auto) 1100 Shoshone # (Auto) 200 Eos # (Auto) 100 Baso # (Auto) 100 Sodium 134 L Potassium 5.1 D Chloride 106 Carbon Dioxide 23 BUN 15 Creatinine 0.32 L Estimated GFR > 60 BUN/Creatinine Ratio 46.9 H Glucose 81 Lactate Calcium 7.9 L Total Bilirubin AST ALT Alkaline Phosphatase Total Creatine Kinase Troponin I 0.079 H NT-Pro-B Natriuret Pep Total Protein Albumin Globulin Albumin/Globulin Ratio Procalcitonin Urine RBC Urine WBC Ur Squamous Epith Cells Amorphous Sediment Urine Bacteria Vol Urine Centrifuged U Opiates 300ng/mL cut Ur Oxycodone Screen Urine Methadone Screen Ur Barbiturates Screen U Tricyclic Antidepress Ur Phencyclidine Scrn Ur Amphetamines Screen U Methamphetamines Scrn Ur MDMA Scrn (Ecstasy) U Benzodiazepines Scrn Urine Cocaine Screen U Marijuana (THC) Screen Urine pH Urine Specific [place] Ethyl Alcohol Ur Creatinine SARS-CoV-2 (PCR) Negative Influenza A (RT-PCR) Flu a negative Influenza B (RT-PCR) Flu b negative RSV (PCR) Negative Assessment & Plan Assessment & Plan narrative: 1. Community-acquired pneumonia on patient on immunosuppression with methotrexate and infliximab-patient has been started on broad-spectrum IV cephalosporin plus azithromycin emergency department. That is should treat atypical organisms such as mycoplasma was and ureaplasma as well as bacterial organisms. In addition with the ground-glass opacities as well as her history with the methotrexate and infliximab I would be concerned about a Pneumocystis infection and will start her on oral trimethoprim sulfamethoxazole. Not really able to obtain bronchoscopy with BAL at this time, seems more appropriate to treat for potential Pneumocystis than be definitive about the diagnose. Fortunately she has only a small oxygen requirement at this time. 2. Acute respiratory failure with hypoxia-oxygen replacement therapy and treatment of above pneumonia 3. Altered mental status-likely secondary to her underlying metabolic issues including the pneumonia. She also may be somewhat overmedicated with narcotics for her chronic pain issues related to her chronic arthritis. Will try and minimize use of pain medication while at the same time still treating her pain 4. Rheumatoid and psoriatic arthritis-patient was kind okay on methotrexate which I am going to hold while treating her for the Pneumocystis above. Also gets Remicade infusions. Not appropriate for this hospitalization. If necessary will place patient back on prednisone to help treat her arthritic symptoms. Try and minimize use of opiate type narcotics given the altered mental status, even though I believe the altered mental status is more due to her underlying pneumonia than anything else 5. VTE prophylaxis-Lovenox appropriate and will be ordered 6. Code status-patient previously signed POLST form in 2019 for full code and resuscitation. Discussed it with spouse this morning over the phone he actually thought that both he and she had a do not resuscitate order on file with the hospital. He very clearly would not want her resuscitated in the event of a sudden cardiac or respiratory arrest. I think this makes a great deal of sense she has been quite miserable with her long-term progressive arthropathies as well as the new onset back pain etcetera. Therefore I will make her a no code/do not resuscitate for the purposes of this hospitalization. I did emphasize to spouse that I have no reason to believe that that is imminent or likely to happen. 7. Disposition-patient clearly requiring a great deal of support for care at home. Her chronic autoimmune arthropathies have made her quite disabled. Will have her seen by skilled therapies whenever respiratory status improves and consideration for alternative placement will be least entertained and discussed with the patient and spouse depending on her physical abilities and or disabilities. Time-Based Coding :: [TOTAL MINUTES] spent with patient and on the chart (including review of chart, obtaining history, exam, reviewing outside data, placing orders, documenting exam and treatment plan, and counseling patient) on [DATE]. [employer] Support Teacher Document charge(s): Yes Charge Codes Initial inpatient/observation care: [id number]
[2025-02-21 08:00] VITALS: BP 146/90; PULSE 84; RESP 12; TEMP 36.7; O2SAT 95
[2025-02-21] MEDS: ENOXAPARIN 40 MG/0.4 ML SYRINGE SUBCUT (09:17)
[2025-02-21] MEDS: FERROUS SULFATE 325 MG TABLET PO (09:17)
[2025-02-21] MEDS: PANTOPRAZOLE DR 40 MG TABLET PO (09:18)
[2025-02-21] MEDS: TRIMETH/SULFA 160/800 (DS) TABLET 1 TAB PO ×2 (09:18→21:29)
[2025-02-21] MEDS: FOLIC ACID 1 MG TABLET PO (09:18)
[2025-02-21] MEDS: CYANOCOBALAMIN (VITAMIN B-12) 500 MCG TABLET PO (09:18)
[2025-02-21] MEDS: CHOLECALCIFEROL (VITAMIN D3) 1,000 UNIT TABLET 2000 UNIT PO (09:18)
[2025-02-21] MEDS: predniSONE 20 MG TABLET 40 MG PO (09:18)
[2025-02-21] MEDS: HYDROCODONE/ACET 5/325 TABLET 1 TAB PO ×3 (09:18→21:29)
[2025-02-21] MEDS: PROGESTERONE, MICRONIZED 100 MG CAPSULE PO (09:19)
[2025-02-21 12:00] VITALS: BP 119/73; PULSE 92; RESP 18; TEMP 36.6; O2SAT 93
[2025-02-21 16:00] VITALS: BP 133/75; PULSE 83; RESP 16; TEMP 36.8; O2SAT 94
[2025-02-21] MEDS: cefTRIAXone 2,000 MG in SODIUM CHLORIDE 0.9% 100 ML 200 MG IV (17:01)
[2025-02-21] MEDS: AZITHROMYCIN 500 MG in DEXTROSE 5% IN WATER 250 ML 250 MG IV (17:46)
[2025-02-21 20:00] VITALS: BP 124/79; PULSE 77; RESP 18; TEMP 36.4; O2SAT 96
[2025-02-21] MEDS: GABAPENTIN 300 MG CAPSULE PO (21:29)
[2025-02-21] MEDS: BACLOFEN 10 MG TABLET 5 MG PO (21:30)
[2025-02-22] VITALS (8 sets, daily range): BP systolic 110–150; BP diastolic 76–103; PULSE 78–94; RESP 16–20; TEMP 36.3–37.3; O2SAT 92–95
[2025-02-22] MEDS: HYDROCODONE/ACET 5/325 TABLET 1 TAB PO ×3 (06:34→21:40)
[2025-02-22 06:37] LABS: Alanine Aminotransferase 22 IU/L (<35); Albumin 2.7 g/dL (3.5-5.0); Alkaline Phosphatase 83 U/L (38-126); Aspartate Aminotransferase 46 IU/L (14-36); BUN Creatinine Ratio 33.3 (6-22); Bilirubin Total 0.7 mg/dL (0.2-1.3); Blood Urea Nitrogen 13 mg/dL (7-17); Calcium 8.4 mg/dL (8.4-10.2); Carbon Dioxide 24 mmol/L (22-32); Chloride 106 mmol/L (98-107); Estimated Glomerular Filt Rate > 60 mL/min (>60); Globulin 2.7 g/dL (1.7-4.1); Glucose 103 mg/dL (70-99); HEMOLYSIS 38 (0-50); Sodium 133 mmol/L (137-145); Total Protein 5.4 g/dL (6.3-8.2)
--- NOTE | 2025-02-22 06:44 | P.PN_ITS ---
Subjective Subjective Date Patient Seen: 02/22/25 Time Patient Seen: 06:44 Interval history: Mostly uneventful day yesterday Patient's mental status has not really changed Vital signs remained stable he was still has a small oxygen requirement Evidence of some early skin breakdown discovered upon careful skin survey Exam Vital Signs (past 8 hours): - 02/22/25 00:00 02/22/25 00:14 02/22/25 04:00 Temperature 97.4 F L 99.1 F Pulse Rate 78 82 85 Respiratory Rate 20 20 Blood Pressure 124/86 142/92 H Pulse Oximetry 92 92 94 Oxygen Delivery Method Nasal Cannula Oxygen Flow Rate 2 2 2 Fraction of Inspired Oxygen 28 Fraction of Inspired Oxygen 28 SaO2/FiO2 Ratio 328 Oxygen Delivery Method Nasal Cannula Oxygen Flow Rate 2 Objective Labs 02/21/25 05:33 02/22/25 06:08 Labs: Laboratory Results - last 24 hr 02/22/25 06:08 Sodium 133 L Potassium 4.0 Chloride 106 Carbon Dioxide 24 BUN 13 Creatinine 0.39 L Estimated GFR > 60 BUN/Creatinine Ratio 33.3 H Glucose 103 H Calcium 8.4 Total Bilirubin 0.7 AST 46 H ALT 22 Alkaline Phosphatase 83 Total Protein 5.4 L Albumin 2.7 L Globulin 2.7 Albumin/Globulin Ratio 1.0 PFS Medical History Chronic headaches Peripheral edema Uncomplicated opioid dependence Psoriatic arthritis Chronic diarrhea Diverticular disease of colon Gilbert syndrome Pyloric ulcer (~02/2018) History of migraine headaches Psoriasis History of adenomatous polyp of colon (06/27/11) Rheumatoid arthritis (06/06/11) Surgical History Status post spinal surgery History of carpal tunnel repair Status post tubal ligation Family History Brother Age: 78 Hypertension High cholesterol Child Age: 60 Mental health problem Child Age: 57 MS (multiple sclerosis) Father Age: 103 Mental health problem Dementia Cardiac disease Mother Family history of colon cancer Colon cancer Cardiac disease Sister Age: 76 Hypertension High cholesterol Social History household members: spouse Smoking Status: Former smoker alcohol intake: current Assessment & Plan Assessment & Plan narrative: 1. Community-acquired pneumonia on patient on immunosuppression with methotrexate and infliximab-continue current antibiotic therapy including the oral Bactrim. 2. Acute respiratory failure with hypoxia-oxygen replacement therapy and treatment of above pneumonia 3. Altered mental status-continue to hope that as we treat her underlying issues this will improve. 4. Rheumatoid and psoriatic arthritis-I placed patient on prednisone yesterday in an effort to try and more quickly resolve any active autoimmune disease. I think we need to be more aggressive in treating her rheumatoid and psoriatic arthritis she is clearly quite debilitated and has been failing at home for quite some time probably in part due to her autoimmune arthropathies. 5. Swallow-patient reportedly coughing at times with the oral intake. Will have formal speech therapy evaluation. 6. Nutrition-patient clearly nutritionally challenge with a BMI 17. Formal nutritional consult has been placed. Work on this in combination with her speech therapy as above 7. Disposition-will get skilled therapies involved as well, unsure as to patient's current ability/disabilities etcetera., even prior to her pneumonia 8. UTI-patient with Gram-negative rods in her urine, however I think given the hypoxia etcetera pneumonia is the bigger issue. Current antibiotic therapy directed at her pneumonia should be more than sufficient for her urinary tract infection. Full identification still pending Time-Based Coding :: [TOTAL MINUTES] spent with patient and on the chart (including review of chart, obtaining history, exam, reviewing outside data, placing orders, documenting exam and treatment plan, and counseling patient) on [DATE]. PROFEE Public Health Educator Document charge(s): Yes Charge Codes Subsequent inpatient/observation care: [id number]
--- NOTE | 2025-02-22 09:08 | DIET.CONS ---
Dietary Consultation Note Admission Date: 02/20/2025 19:35 Assessment: 79 y F admitted for pneumonia. Dietitian consulted for wt loss and decreased PO intake. Met with pt at bedside. Pt confirms when asked that she has been experiencing a decreased appetite. Noted in PCP note that spouse reports pt is able to eat a little, but too much and gets sick/vomits. Pt unable to provide specifics on PO intakes before admission, just that she wasn't able to eat much at all. Open to protein supplementation options. Concern for swallowing. STYRENE DEHYDRATION REACTOR OPERATOR eval order by provider. Nutrition focused physical exam (limited d/t mental status): -Moderate muscle mass loss (temples, deltoid, trapezius) Ht: 157.48 cm Wt: 43 kg BMI: 17.3 UBW: 48.619 kg on 11/01/24 (-11.5% weight loss in 4 months, severe) Last BM: 02/20/25 (02/20/25 20:11) MNA: 6 Ryan Score: 12 Diet: 02/20/25 Breakfast General (Regular) Diet Diet Modifications: Nutrition Percent Meal Consumed 25% 02/21/25 18:00 Labs: RBC 4.08 X10^6/uL (4.0-5.2) 02/21/25 05:33 Hgb 14.0 g/dL (12.0-16.0) 02/21/25 05:33 Hct 41.2 % (36-46) 02/21/25 05:33 Creatinine 0.39 mg/dL (0.52-1.04) L 02/22/25 06:08 Lactate 1.5 mmol/L (0.7-2.1) 02/20/25 14:15 NT-Pro-B Natriuret Pep 2460 pg/mL (<450) H 02/20/25 16:15 Nutrition Diagnosis: Severe acute Protein Calorie Malnutrition r/t inadequate oral intakes as evidenced by 11.5% weight loss within 4 months (severe), moderate muscle mass wasting (temples, deltoid) and BMI severely underweight for age (17.3) Interventions: -ONS with meals or unflavored protein supplement added in tolerated foods (i.e mashed potatoes, hot cereal) -Following for STYRENE DEHYDRATION REACTOR OPERATOR recc EER: 2408-3599 kcals (30-35 kcals/kg) 65 g protein (1.5 g/kg per PCM vs 20% kcals) Monitoring/Evaluations: STYRENE DEHYDRATION REACTOR OPERATOR recc, PO intakes, ONS tolerance Electronically Signed by: Marline Hudson 02/22/25 09:08 Clinical Dietitian [address] [id number]
[2025-02-22] MEDS: CYANOCOBALAMIN (VITAMIN B-12) 500 MCG TABLET PO (09:26)
[2025-02-22] MEDS: ENOXAPARIN 40 MG/0.4 ML SYRINGE SUBCUT (09:26)
[2025-02-22] MEDS: CHOLECALCIFEROL (VITAMIN D3) 1,000 UNIT TABLET 2000 UNIT PO (09:26)
[2025-02-22] MEDS: PROGESTERONE, MICRONIZED 100 MG CAPSULE PO (09:27)
[2025-02-22] MEDS: FERROUS SULFATE 325 MG TABLET PO (09:27)
[2025-02-22] MEDS: predniSONE 20 MG TABLET 40 MG PO (09:27)
[2025-02-22] MEDS: TRIMETH/SULFA 160/800 (DS) TABLET 1 TAB PO ×2 (09:27→21:39)
[2025-02-22] MEDS: FOLIC ACID 1 MG TABLET PO (09:27)
[2025-02-22] MEDS: PANTOPRAZOLE DR 40 MG TABLET PO (09:27)
--- NOTE | 2025-02-22 11:38 | ST.IPCSEOM ---
Visit Care Team Role Provider Type Moira Sue DO Emergency Provider Physician Referring Provider Specialty: Emergency Medicine Address: [address] [place] [address], [place], [address] Email: [email or web address] Ilir Dobbins MD Attending Provider Physician Primary Care Provider Specialty: Internal Medicine Address: [address] [place] [address], [address], [place], [address] Email: [email or web address] Anu Ambrocio MD Admit Provider Physician Other Providers Specialty: Family Practice Address: [facility], [address], [place], [address] Email: [email or web address] Current Diagnoses Pneumonia, unspecified organism (02/20/25) Past Medical History (Last Reviewed 02/21/25 @ 07:18 by Ilir Dobbins MD) Chronic diarrhea (Medical) neg GI W/U, improved on budesonide Chronic headaches (Medical) Diverticular disease of colon (Medical) Extensive sigmoid, on Colonoscopy April 2020 Gilbert syndrome (Medical) History of adenomatous polyp of colon (Medical 06/27/11) Serrated adenoma June 2010, adenoma 05/07 History of migraine headaches (Medical) Peripheral edema (Medical) Psoriasis (Medical) Psoriatic arthritis (Medical) Pyloric ulcer (Medical ~02/2018) Biopsies are pending H. Pylori Rheumatoid arthritis (Medical 06/06/11) Uncomplicated opioid dependence (Medical) Speech-Language Pathology Swallow Evaluation PROGRAM MANAGER TRANSPORTATION Clinical Swallow Evaluation Start: 02/22/25 10:34 Freq: Status: Active Protocol: Document 02/22/25 10:34 MA (Rec: 02/22/25 10:40 MA Desktop) Clinical Swallow Evaluation Session Time Visit Start Time 09:05 Visit Stop Time 09:40 Total Visit Minutes 35 Visit Information Visit Number [address] Dobbins Reason for Referral Trouble swallowing Setting Assessment Location Acute Care Visit Type Note Type Initial evaluation Next Note Type Next Note Type Treatment Note Patient Information Identification Type Name,Wristband History Per H&P: 79-year-old female well known to me with severe rheumatoid and psoriatic arthritis admitted via the emergency department with pneumonia. She presented with spouse who noted increasing confusion decreased appetite over several days. Patient was self was able to endorse body wide pain but denied any specific other symptoms including cough shortness of breath chest pain ER evaluation documented changes on plain film chest x- ray followed by ground-glass changes bilaterally on CT scan . She was mildly hypoxic. She had normal white blood cell count and chemistries essentially unremarkable. Borderline troponin without acute ischemia on ECG. Also normal head CT Tox screen positive for THC and opiates as expected PMHx significant for: Chronic headaches Peripheral edema Uncomplicated opioid dependence Psoriatic arthritis Chronic diarrhea Diverticular disease of colon Gilbert syndrome Pyloric ulcer (~02/2018) History of migraine headaches Psoriasis History of adenomatous polyp of colon (06/27/11) Rheumatoid arthritis (06/06/11 ) Pt referred for ST evaluation d/t Pt with poor intake, trouble swallowing and coughing with oral intake. Subjective Observations Pt sitting upright in bed upon ST entering room. Pt awake and alert, oriented to self and place, difficulties recalling year and answering questions regarding her swallow difficulties with her stating, I don't know, I can' t describe it. O2 via nasal cannula in place. Reported by Patient/Caregiver Other Symptoms Coughing Current Diet Regular (IDDSI 7) Baseline Feeding Method Needs some assistance The IDDSI Framework Protocol: IDDSI.1 Objective Assessment Mental Status Alert,Responsive,Cooperative, Confused Oral Integrity WFL Dentition Upper dentures/partials,Lower dentures/partials Lip Function Within normal limits Pucker Within normal limits Tongue Function Within normal limits Observations of Tongue at Rest Within normal limits Jaw Opening Within normal limits Jaw Closing Within normal limits Food and Liquid Trials Position During Assessment Upright (90 degrees) Liquids Trialed Thin (IDDSI 0) Solid Trials Purred (IDDSI 4),Soft & Bite- sized (IDDSI 6),Regular (IDDSI 7) Administration Type Cup single sip,Straw,Self- feeding Oral Impairment Mildly impaired Oral Phase Comments Pt consumed about 6 oz of thin water via cup/straw, pudding, applesauce with meds administered by licensed nursing assistant with instructor present, few bites of peanut butter and jelly sandwich and 1 domenico cracker. For thin water via straw and cup Pt exhibited adequate suction, small sip, bolus holding requiring ST to cue Pt to swallow, which was not always effective. Pt with less holding with water via cup. Piecemeal deglutition with thin water. Pt able to feed self pudding with set up assistance. She demonstrated adequate bite size, good oral acceptance and containment, timely ap transport. For domenico cracker and sandwich Pt exhibited adequate bite size, prolonged mastication however adequate bolus formation and control, mild oral stasis. Pharyngeal Impairment Mildly impaired Pharyngeal Phase Comments For thin water via straw, Pt exhibited x2 delayed cough reflex and occasional burping. No overt s/s of aspiration with PO trials of solids, such as coughing or choking. Fatigue/Endurance Endurance WNL Comment Pt tolerated 1-2 whole pills in applesauce well, however nursing reported 1x cough when she required a liquid wash post swallow of pills. The IDDSI Framework Protocol: IDDSI.1 Findings Swallowing Function Oropharyngeal phase dysphagia Severity of Swallow Impairment Mildly-moderately impaired Prognosis Fair Based on Cognitive status Comment ST suspects bolus holding with thin liquids may be d/t cognitive deficits. Pt mildly benefited from cues to swallow water. Impact on Safety and Functioning Risk for aspiration,Risk for inadequate nutrition/hydration Recommendations Instrumental Assessment No Swallowing Treatment Yes Frequency Daily while inpatient Recommended Solids Regular (IDDSI 7) Recommended Liquids Thin (IDDSI 0) Other Recommendations ST recommends regular solids and thin liquids- NO straw, with the below mentioned safe swallowing strategies stated below. Pt not appropriate for MBS at this time d/t Pt cognitive status, however if cognition improves and Pt able to follow simple commands MBS may be considered. Safety Precautions/Swallowing 1 to 1 close supervision, Recommendations Reduce distractions,Remain upright (90 degrees) during all oral intake,Needs verbal cues to use recommended strategies,Upright position at least 30 minutes after meals, Small bites and sips when eating,Slow rate; swallow between bites,No straw, Alternate liquids and solids, Set-up assistance,Strict oral care after intake Medication Recommendations As Tolerated Education Patient/Caregiver Education Described results of evaluation,Family/caregivers require further education/ training Goals Short-term Goals STG 1: Pt will tolerate prescribed diet with <5% overt s/s of aspiration/dysphagia with use of compensatory swallowing strategies and minimal cues. Long-term Goals LTG 1: Patient will consume safest and most efficient least restrictive diet with no clinical s/s of aspiration or dysphagia 100% of the time in order to meet primary nutrition/hydration needs.
--- NOTE | 2025-02-22 12:14 | OT.IPNOTE ---
Pt refusing to get up x2 for OT eval. Pt O2 at 87% and tends to be a mouth breather and notified nursing and RT that pt may benefit from oxygen mask versus nasal canula.
--- NOTE | 2025-02-22 12:38 | PT-IP ANOTE ---
PT eval order received. EMR reviewed. checked on pt and pt asleep. spouse in room and stated that pt is not ready for PT today. asked spouse if PT can check later in the afternoon and spouse declined.
[2025-02-22] MEDS: cefTRIAXone 2,000 MG in SODIUM CHLORIDE 0.9% 100 ML 200 MG IV (16:18)
[2025-02-22] MEDS: AZITHROMYCIN 500 MG in DEXTROSE 5% IN WATER 250 ML 250 MG IV (17:29)
[2025-02-22] MEDS: BACLOFEN 10 MG TABLET 5 MG PO (21:39)
[2025-02-22] MEDS: GABAPENTIN 300 MG CAPSULE PO (21:39)
[2025-02-23 01:00] VITALS: BP 144/87; PULSE 82; TEMP 36.6; O2SAT 96
[2025-02-23 04:00] VITALS: BP 135/77; PULSE 81; RESP 16; TEMP 36.7; O2SAT 95
--- NOTE | 2025-02-23 07:39 | PM.PN.IH.1 ---
Subjective Subjective Date Patient Seen: 02/23/25 Time Patient Seen: 07:39 Interval history: Essentially unremarkable day yesterday Seen by speech therapy who did not find any massive defects in her swallow. What was found he was thought to be secondary to some cognitive issues and he was moving slowly he was supervision alternating substances liquids and solids etcetera Patient unable to really participate with physical or occupational therapy Overall oxygen requirement seems improved Patient's responses seem a bit more rapid and more complete than they have been. Spouse is with her this morning and he agrees he thinks her mental status or brain fog is clearing ever so slightly Exam Vital Signs (past 8 hours): - 02/23/25 01:00 02/23/25 04:00 Temperature 97.9 F 98.0 F Pulse Rate 82 81 Respiratory Rate 16 Blood Pressure 144/87 H 135/77 Pulse Oximetry 96 95 Oxygen Flow Rate 1 1 Fraction of Inspired Oxygen 28 SaO2/FiO2 Ratio 339 Oxygen Delivery Method CPAP Oxygen Flow Rate 1 Objective Labs 02/21/25 05:33 02/22/25 06:08 REPLACED BY [facility] Medical History Chronic headaches Peripheral edema Uncomplicated opioid dependence Psoriatic arthritis Chronic diarrhea Diverticular disease of colon Gilbert syndrome Pyloric ulcer (~02/2018) History of migraine headaches Psoriasis History of adenomatous polyp of colon (06/27/11) Rheumatoid arthritis (06/06/11) Surgical History Status post spinal surgery History of carpal tunnel repair Status post tubal ligation Family History Brother Age: 78 Hypertension High cholesterol Child Age: 60 Mental health problem Child Age: 57 MS (multiple sclerosis) Father Age: 103 Mental health problem Dementia Cardiac disease Mother Family history of colon cancer Colon cancer Cardiac disease Sister Age: 76 Hypertension High cholesterol Social History household members: spouse Smoking Status: Former smoker alcohol intake: current Assessment & Plan Assessment & Plan narrative: 1. Community-acquired pneumonia on patient on immunosuppression with methotrexate and infliximab-continue current antibiotic therapy including the oral Bactrim. 2. Acute respiratory failure with hypoxia-oxygen replacement therapy and treatment of above pneumonia. May be slightly improved 3. Altered mental status/acute cognitive dysfunction-continue to hope that as we treat her underlying issues this will improve. No evidence of focal defect to suggest acute CVA etcetera. Imaging is unremarkable. Likely multifactorial alteration in mental status and cognition. 4. Rheumatoid and psoriatic arthritis-I placed patient on prednisone in an effort to try and more quickly resolve any active autoimmune disease. No dramatic improvement on the prednisone so far. Prednisone could also be somewhat helpful in the setting of a potential Pneumocystis pneumonia 5. Swallow-continue speech therapy evaluation. Fortunately no dramatic swallow issues identified so far 6. Nutrition-patient clearly nutritionally challenge with a BMI 17. Formal nutritional consult has been placed. Work on this in combination with her speech therapy as above 7. Disposition-patient needs to be evaluated by skilled therapies. Hopefully her clinical status will allow for this. Overall I suspect she would best be served by probably long-term placement in care home facility, but that has yet to be determined 8. UTI-patient with Gram-negative rods in her urine, however I think given the hypoxia etcetera pneumonia is the bigger issue. Current antibiotic therapy directed at her pneumonia should be more than sufficient for her urinary tract infection. Full identification still pending for some reason Time-Based Coding :: [TOTAL MINUTES] spent with patient and on the chart (including review of chart, obtaining history, exam, reviewing outside data, placing orders, documenting exam and treatment plan, and counseling patient) on [DATE]. PROFEE Appeals Board Referee Document charge(s): Yes Charge Codes Subsequent inpatient/observation care: [id number]
[2025-02-23 08:00] VITALS: BP 153/101; PULSE 89; RESP 16; TEMP 36.7; O2SAT 93
--- NOTE | 2025-02-23 08:17 | CM.DANOTE ---
Initial CONDENSER SETTER Assessment Visit Note Reviewed EMR and team rounds for pt's status and updates. CONDENSER SETTER did meet with pt briefly in the room to introduce self and role, pt was found to be alert/oriented, but did not communicate verbally. Pt lives modified independently with spouse in their own home in [place]. Her spouse will transport her home once she's medically cleared for discharge. Payor: Medicare PCP: Dr. Dobbins Pt is a 79 year-old F with a hx of RA, chronic pain, and is mostly sedentary and disabled at baseline. She had been able to ambulate with a walker or cane up until about a week ago, and has not been out of bed since that time. She presented to the ED with AMS, confusion, decreased appetite/intake over the last several days, generalized weakness and malaise. In the ED, she was found to be hypoxic, was started on 1-2LO2. CT and x-ray both confirmed pneumonia/community aquired. She was started on IV ABO's and admitted to the floor for further tx and respiratory monitoring. She is slowly coming back to baseline now cognitively. DCP will continue to monitor for final d/c resource and assistance needs. She will likely need Home Health, CONDENSER SETTER will attempt to contact her spouse and discuss this further later today. Discharge Planning/Care Management Advanced directive, confirm from FAMILY Start: 02/20/25 20:57 Freq: Q24H Status: Active Protocol: Document 02/20/25 20:57 AT (Rec: 02/20/25 22:37 AT [id number]) Advance Directive, confirm on record Time 21:45 Person contacted Copy received No Document 02/22/25 10:30 CM (Rec: 02/22/25 12:37 CM [id number]) Advance Directive, confirm on record Time 21:45 Person contacted Copy received No Time 12:24 Person contacted Pt's Spouse Copy received No Advanced directive available on record No CM Discharge Assessment Start: 02/20/25 20:11 Freq: Status: Active Protocol: Document 02/23/25 08:15 DPL (Rec: 02/23/25 08:17 DPL [id number]) Discharge Planning Assessment Assigned Open Soaper Tender ROMULO Ferraro Advance Directives? Yes Advance Directives on File No History Provided By Patient,Medical Record Household Members spouse Type of transporation used prior to Relies on Others admit Independent with ADL's No: modified ind w/walker and cane Is patient alert and oriented? Yes: She initially came in with AMS, however is now closer to baseline. Needs Assistance With Meal Prep,Managing Medications ,Home Chores / Shopping DME Already Rented / Owned Bath Bench,Elevated Toilet Seat,FWW / Walker,Cane Patient/Family Preference Home with Home Health Discharge Plan Home Transportation Arrangement Spouse able to provide transport Referrals Initiated None needed,Home Health Whiteboard Updated in Patient Room with Yes name and ext. # of Open Soaper Tender Review Status In Process Please Provide Date Initial DC 02/23/25 Assessment Was Performed
[2025-02-23] MEDS: CHOLECALCIFEROL (VITAMIN D3) 1,000 UNIT TABLET 2000 UNIT PO (09:54)
[2025-02-23] MEDS: PANTOPRAZOLE DR 40 MG TABLET PO (09:55)
[2025-02-23] MEDS: TRIMETH/SULFA 160/800 (DS) TABLET 1 TAB PO ×2 (09:55→21:03)
[2025-02-23] MEDS: FOLIC ACID 1 MG TABLET PO (09:55)
[2025-02-23] MEDS: predniSONE 20 MG TABLET 40 MG PO (09:55)
[2025-02-23] MEDS: CYANOCOBALAMIN (VITAMIN B-12) 500 MCG TABLET PO (09:55)
[2025-02-23] MEDS: FERROUS SULFATE 325 MG TABLET PO (09:56)
[2025-02-23] MEDS: ENOXAPARIN 40 MG/0.4 ML SYRINGE SUBCUT (09:56)
[2025-02-23] MEDS: HYDROCODONE/ACET 5/325 TABLET 1 TAB PO ×3 (09:57→21:07)
--- NOTE | 2025-02-23 10:42 | CM.DPC ---
DCP Cont. Reviewed EMR and team rounds for pt's status updates. Met with pt/spouse at bedside. Discussed with spouse what type of support he thought that they may need at home after d/c. He states that she will not want to go to SNF rehab, and that he doesn't feel that Home Health would be beneficial, as she is in too much pain with any movement, and that she's just trying to get stable enough to have back surgery in the near future. SCRAP CRANE OPERATOR invited him to reach out should he think of anything during their stay that he may need assistance with.
--- NOTE | 2025-02-23 11:15 | PT.IIE ---
Current Diagnoses Pneumonia, unspecified organism (02/20/25) Surgical History (Last Reviewed 02/21/25 @ 07:18 by Ilir Dobbins MD) History of carpal tunnel repair Status post spinal surgery Status post tubal ligation Medical History (Last Reviewed 02/21/25 @ 07:18 by Ilir Dobbins MD) Chronic diarrhea Chronic headaches Diverticular disease of colon Gilbert syndrome History of adenomatous polyp of colon (06/27/11) History of migraine headaches Peripheral edema Psoriasis Psoriatic arthritis Pyloric ulcer (~02/2018) Rheumatoid arthritis (06/06/11) Uncomplicated opioid dependence Physical Therapy Inpatient Evaluation/Re-Eval M1 PT/OT-IP Prior Functional Status Start: 02/23/25 11:44 Freq: NEEDED Status: Active Protocol: Document 02/23/25 11:15 DLM (Rec: 02/23/25 12:28 DLM Desktop) Medical Review Prior Functional Status Medical History Reviewed Yes Diet/Fluid Consistency Regular Communication WFL Mobility and Gait Ambulating with FWW recently at home. Was using a cane for gait prior. Weakness and back pain limit her activity tolerance. She ambulates shorter distances. They have a wheelchair for longer distances and use it for appointment. She goes to the infusion center in [place] every 4-6 weeks. Activities of Daily Living and IADL's Her assists her with ADL's. He helps change her depends. Pt has frequent incontinence. He sits on the seat in the shower for bathing . Her takes care of higher level home tasks. Prior Functional Level (Other details) She has a stair lift on her indoor stairs, she has not been ambulating on the stairs. She has a hx of severe skin tenderness to touch. Social History Household Members spouse Living Arrangements House Number of Floors (Floors) Two Floors Number of Stairs To Enter/Railing? 2 steps, has been bumping her up/down in wheelchair Home Environment Standard Height Toilet,High Toilet,Walk in Shower,Built-In Shower Seat Home Equipment Front Wheel Walker,Straight Cane,Manual Wheelchair,Grab Bars In Shower Employment Status Retired Additional Social History Comment She is retired from selling furniture M2 PT-IP Current Condition Start: 02/23/25 11:44 Freq: NEEDED Status: Active Protocol: Document 02/23/25 11:15 DLM (Rec: 02/23/25 12:28 DLM Desktop) Physical Therapy Current Condition Current Condition Evaluation Date 02/23/25 Treatment Diagnosis PNA, weakness and impaired gait Onset Date 02/20/25 M3 PT-IP Subjective Start: 02/23/25 11:44 Freq: NEEDED Status: Active Protocol: Document 02/23/25 11:15 DLM (Rec: 02/23/25 12:28 DLM Desktop) Subjective Physical Therapy Visit Type Type Initial Evaluation Visit Start Time 10:30 Visit Stop Time 11:15 Notes 45 min Number of BRIM STRETCHER Visits 0 Physical Therapy Visit Comments Patient Comments Her believes her back pain is limiting her ability to participate in Physical Therapy. Pt reports no shortness of breath today Patient Goals Get better Therapy Pain Assessment Pain When Pain Assessed During Mobility Pain Present Pain Present Pain Reported Location Back Intensity 5 Scale Used Numeric (0 - 10) Description Aching,Chronic,Tightness,With Movement Pain Behaviors Guarding Pain Management Techniques Modification of Treatment,Re- positioning M4 PT-IP Mobility and Gait Start: 02/23/25 11:44 Freq: NEEDED Status: Active Protocol: Document 02/23/25 11:15 DLM (Rec: 02/23/25 12:28 DLM Desktop) PT-Bed Mobility Assessment Rolling Type of Rolling Log Rolling Level of Assist Minimal Assistance,Moderate Assistance Supine to Sit Supine to Sit Moderate Assistance,Maximum Assistance,Head of Bed Elevated Sit to Supine Sit to Supine Moderate Assistance,Maximum Assistance,2 Person Assistance Scooting Scooting to Edge of Bed Moderate Assistance Scooting Up and Down in Bed Dependent PT-Transfer Assessment Sit to and From Stand Sit to and from Stand Minimal Assistance,Use of Upper Extremities Equipment Transfer Assistive Device Gait Belt,Front Wheeled Walker Comments Mobility Comments She sat edge of bed, stood with the FWW and progressed to taking one side-step at the edge of the bed. Pt declined transfer to the chair due to fatigue and pain. Pt requested back to bed after activity. Pt requested to have a second staff member present to assist during this visit. She describes feeling light headed sitting edge of bed and noted her O2 sats dropped to 86% on one LPM oxygen. Increased her supplemental Oxygen to 2 LPM and her O2 sat increased to 90 %. Pt left on 2 LPM when back in bed with CENTRAL OFFICE TECHNICIAN aware and monitoring. Coordinated care with her CENTRAL OFFICE TECHNICIAN to change her wet depends during this visit. The hospital bed is tall for her which complicates sit- stands at edge of bed. Gait Assessment Gait Gait Assistance Required: Minimum Assistance Distance (Feet) 1 Assistive Devices Assistive Device Gait Belt,Front Wheeled Walker Gait Deviations General Gait Pattern Decreased Stride Length, Decreased Feet Clearance, Flexed Trunk Factors Limiting Gait Function Factors Limiting Gait Function Decreased Activity Tolerance, Decreased Strength Comments Gait Comments She describes LE weakness in standing and with attempts to take functional steps. She was only able to manage one side- step at the edge of the bed this visit. PT-Balance Assessment Sitting Balance and Reactions Static Sitting Balance Ability Good Dynamic Sitting Balance Ability Fair Standing Balance and Reactions Static Standing Balance Ability Poor Dynamic Standing Balance Ability Poor Device Used FWW M5 PT-IP Objective Assessments Start: 02/23/25 11:44 Freq: NEEDED Status: Active Protocol: Document 02/23/25 11:15 DLM (Rec: 02/23/25 12:28 DLM Desktop) Orientation Orientation/Cognition Level of Alertness Alert Orientation Name,Age,Birthday,Month,Date, Year,Day of Week,Place, Situation Safety Awareness Understands Safety Issues Comments Her answers a lot of the questions for her Gross Range of Motion Upper Extremity ROM Assessment Within Functional Limits Lower Extremity ROM Assessment Within Functional Limits Strength Upper Extremity Strength Assessment Bilaterally Impaired Lower Extremity Strength Assessment Bilaterally Impaired Comments Strength Comments generalized weakness throughout, pt unable to tolerate manual muscle testing due to severe skin tenderness . She needs assist to lift LE' s off bed. Pt using UE's functionally to reach for bed rails and hold FWW. Coordination Assessment Gross Coordination Gross Coordination WNL Sensation Assessment Comments Sensation Comments she reports no numbness when feet touched, her skin is pink /red and dry Muscle Tone Muscle Tone WNL Yes M6 PT-IP Treatment Start: 02/23/25 11:44 Freq: NEEDED Status: Active Protocol: Document 02/23/25 11:15 DLM (Rec: 02/23/25 12:28 DLM Desktop) Physical Therapy Treatment Education Education Provided Safety Other Treatments Other Treatment Performed Her was present at the start of this visit but stepped out of the room during treatment session, her did not want to be the second person assisting her during Physical Therapy M7 PT-IP Assessment and Plan Start: 02/23/25 11:44 Freq: NEEDED Status: Active Protocol: Document 02/23/25 11:15 DLM (Rec: 02/23/25 12:28 DLM Desktop) PT Summary Assessment and Plan Potential Rehabilitation Potential Good Status of Condition at Evaluation Evolving Summary Impairments Pain,ROM,Strength,Balance,Bed Mobility,Transfers,Gait, Activity Tolerance Assessment Summary Kelsie is alert and resting in bed. She was admitted with increased weakness and confusion. Her reports pt needing more assistance at home since her infusion in [place]. Pt has chronic back pain that her reports limits all her activity and is pending medical intervention. Pt was diagnosed with pneumonia this admission and is on 1 LPM supplemental oxygen at this time. During this evaluation she presents with significant functional weakness and poor activity tolerance. She denies shortness of breath but she does desat on 1 LPM during light activity with pt reporting light-headedness at 86% O2 sat. She was able to sit up edge of bed and progress to taking one side- step at the edge of the bed with the FWW and one person assist. Pt is very fearful of falling and requests to have two staff members present for all mobility/activity. She has a very low level of activity tolerance to discharge home. She could benefit from SNF rehab at discharge to help her resume household ambulation. Goals Bed Mobility Goal Standby Assistance Transfer Goal Contact Guard Assistance, Minimal Assistance,Front Wheeled Walker Gait Goal Contact Guard Assistance, Minimal Assistance,Front Wheel Walker Gait Distance 20 feet Days to Meet Goals 10 Frequency of Treatment Frequency Of Treatment Once a Day Treatment Plan Physical Therapy Treatment Plan Bed Mobility Training,Transfer Training,Gait Training, Therapeutic Exercise,Balance Retraining,Discharge Planning, Neuromuscular Re-ed Other Recommendations and Next Treatment education to manage back pain Focus Precautions Lumbar Precautions Log Roll Other Precautions fall risk skin is very tender to touch chronic back pain immunosuppressed due to RA and psoriatic treatments Recommendations To Nursing Amount of Assist Needed 2 Person Assist Discharge Recommendations PT Discharge Recommendations SNF Rehab Transportation Needs at Discharge Stretcher/Ambulance - PT assist 2
[2025-02-23 12:00] VITALS: BP 126/85; PULSE 87; RESP 16; TEMP 36.6; O2SAT 93
--- NOTE | 2025-02-23 14:00 | OT.IP.EVAL ---
Current Diagnoses Pneumonia, unspecified organism (02/20/25) Past Medical History (Last Reviewed 02/21/25 @ 07:18 by Ilir Dobbins MD) Chronic diarrhea Chronic headaches Diverticular disease of colon Gilbert syndrome History of adenomatous polyp of colon (06/27/11) History of migraine headaches Peripheral edema Psoriasis Psoriatic arthritis Pyloric ulcer (~02/2018) Rheumatoid arthritis (06/06/11) Uncomplicated opioid dependence Surgical History (Last Reviewed 02/21/25 @ 07:18 by Ilir Dobbins MD) History of carpal tunnel repair Status post spinal surgery Status post tubal ligation Occupational Therapy Inpatient Evaluation/Re-Eval M1 PT/OT-IP Prior Functional Status Start: 02/23/25 11:44 Freq: NEEDED Status: Active Protocol: Document 02/23/25 14:05 [facility] (Rec: 02/23/25 14:30 [facility] Desktop) Medical Review Prior Functional Status Medical History Reviewed Yes Diet/Fluid Consistency Regular Communication WFL Mobility and Gait Ambulating with FWW recently at home. Was using a cane for gait prior. Weakness and back pain limit her activity tolerance. She ambulates shorter distances. They have a wheelchair for longer distances and use it for appointment. She goes to the infusion center in [place] every 4-6 weeks. Activities of Daily Living and IADL's Her assists her with ADL's. He helps change her depends. Pt has frequent incontinence. She sits on the seat in the shower for bathing . Her takes care of higher level home tasks. Prior Functional Level (Other details) She has a stair lift on her indoor stairs, she has not been ambulating on the stairs. She has a hx of severe skin tenderness to touch. Social History Household Members spouse Living Arrangements House Number of Floors (Floors) Two Floors Number of Stairs To Enter/Railing? 2 steps, has been bumping her up/down in wheelchair Home Environment Standard Height Toilet,High Toilet,Walk in Shower,Built-In Shower Seat Home Equipment Front Wheel Walker,Straight Cane,Manual Wheelchair,Grab Bars In Shower Employment Status Retired Additional Social History Comment She is retired from selling furniture M2 OT-IP Current Condition Start: 02/23/25 14:05 Freq: Status: Active Protocol: Document 02/23/25 14:05 [facility] (Rec: 02/23/25 14:30 [facility] Desktop) Occupational Therapy Current Condition Current Condition Evaluation Date 02/23/25 Treatment Diagnosis PNA, acute respiratory failure , AMS Diagnosis Onset Date 02/20/25 M3 OT- IP Subjective and Pain Start: 02/23/25 14:05 Freq: Status: Active Protocol: Document 02/23/25 14:05 [facility] (Rec: 02/23/25 14:30 [facility] Desktop) OT- Subjective Occupational Therapy Visit Type Type Initial Evaluation Visit Start Time 13:30 Visit Stop Time 14:00 Occupational Therapy Visit Comments Patient Comments After encouragement pt agreed to try to get up. Patient/Caregiver Goals TO get better. OT Pain Assessment Pain When Pain Assessed During Mobility Pain Present Pain Present Pain Reported Location Back Pain Behaviors Facial Grimacing M4 OT- IP ADL's Start: 02/23/25 14:05 Freq: Status: Active Protocol: Document 02/23/25 14:05 [facility] (Rec: 02/23/25 14:30 [facility] Desktop) OT [id number] Comments OT Self-Feeding Comments Pt able to take a sip on her Ensure while seated at the edge of the bed but then getting tired and having to lie back down. OT ADL-Grooming Comments OT Grooming Comments Not performed. OT ADL-Oral Care Comments Oral Care Comments Not performed. OT ADL-Dressing General Eval Lower Body Dressing Ability Total Assistance OT ADL-Toileting General Evaluation Toileting Ability Total Assistance Comments OT Toileting Comments Use of Bernstein OT ADL-Bathing Comments OT Bathing Comments Sponge bath more appropriate at this time. M5 OT- IP IADL's Start: 02/23/25 14:05 Freq: Status: Active Protocol: Document 02/23/25 14:05 [facility] (Rec: 02/23/25 14:30 [facility] Desktop) OT-Instrumental Activities of Daily Living Medication Management Medication Management Caregiver Administers Money Management Money Management Caregiver Provides Assistance Meal Preparation Meal Preparation Caregiver Provides Assist Environmental Education Specialist Environmental Education Specialist Caregiver Provides Assist M6 OT- IP Functional Cognition Start: 02/23/25 14:05 Freq: Status: Active Protocol: Document 02/23/25 14:05 [facility] (Rec: 02/23/25 14:30 [facility] Desktop) Cognitive Factors Limiting Selfcare Function Cognitive Ability Level of Alertness Alert,Confusional State Patient Orientation Name,Month,Year,Place, Situation Attention Span Ability Capable of Focused Attention, Capable of Sustained Attention Ability to Follow Commands Able to Follow One Step Commands with Increased Time, Able to Follow One Step Commands with Repetition Cognitive Comments Cognitive Assessment Comments Pt needing increased time to process and follow commands. Pt unsure of how long ago able to be more independent with her needs. Pt feels that is has been 1-2 month if which her has had to assist her more. Pt will benefit from SLUMS. OT- Vision and Hearing OT- Hearing Assessment OT- Hearing Assessment Hearing Impaired,Use of Hearing Aids OT- Vision Assessment Vision Assessment Comments Pt has glasses but does not recall when she uses them. M7 OT- IP Mobility and Balance Start: 02/23/25 14:05 Freq: Status: Active Protocol: Document 02/23/25 14:05 [facility] (Rec: 02/23/25 14:30 [facility] Desktop) OT- Bed Mobility Assessment Rolling Type of Rolling Log Rolling,Roll to Left Level of Assistance Minimal Assistance Supine to Sit Supine to Sit Assist Moderate Assistance,Maximum Assistance,Head of Bed Elevated,Bedrails Sit to Supine Sit to Supine Assist Total Assistance,1 Person Assistance Scooting Scooting to Edge of Bed Maximum Assistance,1 Person Assistance OT-Transfer Assessment Comments Mobility Comments Increased time and lot of rest breaks in order to initiate rolling to the left and assist to to get her trunk upright. At time pt not able to process initiation of her movements as well. Pt will benefit from SLUMS. OT- Balance Assessment Sitting Balance and Reactions Static Sitting Balance Ability Fair Dynamic Sitting Balance Ability Poor Comments Other Balance Tests/Deviations/Treatment Pt able to sit on the edge of : the bed with use of bed rail to hang onto, but then tiring and trunk flexing forwards. M8 OT- IP Objective Assessments Start: 02/23/25 14:05 Freq: Status: Active Protocol: Document 02/23/25 14:05 [facility] (Rec: 02/23/25 14:30 [facility] Desktop) OT Gross Range of Motion Upper Extremity Range of Motion Assessment Within Functional Limits OT Strength Upper Extremity Strength Assessment Bilaterally Impaired M9 OT- IP Assessment and Plan Start: 02/23/25 14:05 Freq: Status: Active Protocol: Document 02/23/25 14:05 [facility] (Rec: 02/23/25 14:30 [facility] Desktop) OT Summary Assessment and Plan Potential Rehabilitation Potential Good Analytic Complexity at Evaluation Moderate Summary OT Impairments Pain,Strength,Balance, Functional Cognition, Functional Mobility,Self- Feeding,Grooming,Dressing, Toileting,Bathing,Toilet Transfers,Shower Transfers, Activity Tolerance Progress Towards Goals Slow Progress due to Pain,Slow Progress due to Medical Issues,Slow Progress due to Activity Tolerance,Slow Progress due to Cognition Assessment Summary Pt MOD complexity and main barriers are decreased overall strength, activity tolerance, and balance. Pt at this time only able to sit at the edge of the bed for several seconds with bed rail before fatiguing having to lean on the tray table in front. Pt will benefit from skilled rehab to improve overall ADL and mobility needs so more manageable for her to be able to assist her. Goals Self-Feeding Goal Standby Assistance Grooming Goal Standby Assistance Dressing Goal Moderate Assistance Toileting Goal Minimal Assistance Bathing Goal Moderate Assistance Toilet Transfer Goal Minimal Assistance Shower Transfer Goal Moderate Assistance Days to Meet Goals 15 Frequency of Treatment Other frequency 5x/week Treatment Plan OT Treatment Plan ADL Training,Functional Cognition Training,Functional Mobility,Patient/Family Education,Discharge Planning Other Treatment Recommendations and Next seated ADL's, SLUMS Treatment Focus Discharge Recommendations OT Discharge Recommendations SNF Rehab Transportation Needs at Discharge Wheelchair/Cabulance,Stretcher /Ambulance
[2025-02-23 16:00] VITALS: BP 149/81; PULSE 92; RESP 18; TEMP 36.4; O2SAT 95
[2025-02-23] MEDS: PROGESTERONE, MICRONIZED 100 MG CAPSULE PO (16:43)
--- NOTE | 2025-02-23 16:48 | ST.IPDYTX ---
Visit Care Team Role Provider Type Moira Sue DO Emergency Provider Physician Referring Provider Specialty: Emergency Medicine Address: [address] [place] [address], [id number] Email: [email or web address] Ilir Dobbins MD Attending Provider Physician Primary Care Provider Specialty: Internal Medicine Address: [address] [place] [address], [address], [place], [address] Email: [email or web address] Anu Ambrocio MD Admit Provider Physician Other Providers Specialty: Family Practice Address: [facility], [address], [place], [address] Email: [email or web address] HYDRODYNAMICS PROFESSOR Dysphagia Treatment HYDRODYNAMICS PROFESSOR Dysphagia Treatment Start: 02/23/25 14:24 Freq: Status: Active Protocol: Document 02/23/25 14:24 MM (Rec: 02/23/25 14:32 MM Desktop) Dysphagia Treatment Session Time Visit Start Time 13:55 Visit Stop Time 14:15 Total Visit Minutes 20 Setting Assessment Location Acute Care Visit Type Note Type Treatment Note Next Note Type Next Note Type Treatment Note Patient Information Identification Type Name Subjective Observations OT and RN present upon ST arrival assisting pt to sit upright in bed. Pt alert on 2L of supplemental oxygen via nasal cannula. Pt agreeable to participate in PO trials with ST. Treatment Liquids Trialed Thin (IDDSI 0) Solids Trialed Regular (IDDSI 7) Administration Type Cup Single Sip,Cup Consecutive Sips,Self-Feeding Oral Strategies Upright at 90 degrees,Lingual Sweep,Alternate Liquids/Solids Pharyngeal Strategies Sitting Upright (90 deg),Small Bites and Sips Treatment Activities Therapeutic PO trials of thin liquids (water and Ensure) via cup and regular solids ( domenico cracker) completed while assessing for s/sx of oral and pharyngeal dysphagia. The IDDSI Framework Protocol: IDDSI.1 Assessment Patient Response to Treatment Good Rehab Potential Good Assessment of Improvement Pt exhibited adequate retrieval from cup and oral containment of PO trials. Pt exhibited prolonged oral holding with both thin liquids and regular solids and delayed swallow initiation. ST facilitated swallow initiation by cueing pt to swallow PO trials. Pt exhibited adequate oral clearance with thin liquid trials but moderate oral residue primarily in buccal pockets with regular solid trials. ST facilitated oral clearance by cueing pt to utilize liquid wash and lingual sweep. No overt s/sx of aspiration noted. No globus sensation reported. Recommend continuing baseline diet of regular solids and thin liquids with aspiration precautions (slow rate, small bites/sips, upright positioning, oral care) and oral clearance strategies ( liquid wash and lingual sweep) , medications as tolerated/ preferred by pt. This is supported by pt's WBC WNL and independence for feeding/oral care. Recommendations Recommendations Continue Current Diet Liquids Order Thin (IDDSI 0) Diet Order Regular (IDDSI 7) Medication Recommendations As Tolerated Additional Dietary Needs 1:1 Supervision,Reminders to Use Strategies Aspiration Precautions Recommended Precautions Upright at 90 Degrees, Alternate Liquids/Solids,Small Bites/Sips,Lingual Sweep, Check for Pocketing,Liquids from Cup Additional Precautions Oral care TID Treatment Plan Appropriate for Continued Therapy Yes Therapy Recommendations ST will continue to follow x1 to assess for s/sx of dysphagia and provide education re: compensatory strategies and aspiration precautions. Dysphagia Goals LTG1: Pt will consume safest and most efficient least restrictive diet with no clinical s/sx of aspiration or dysphagia 100% of the time in order to meet primary nutrition/hydration needs. STG1: Pt will tolerate prescribed diet with <5% overt s/sx of aspiration/dysphagia with use of compensatory swallowing strategies and minimal cues. STG2: Pt will tolerate prescribed diet with <5% oral residue with use of compensatory swallowing strategies (liquid wash, lingual sweep) and minimal cues.
[2025-02-23] MEDS: cefTRIAXone 2,000 MG in SODIUM CHLORIDE 0.9% 100 ML 200 MG IV (17:01)
[2025-02-23 20:00] VITALS: BP 120/63; PULSE 89; RESP 18; TEMP 37.1; O2SAT 92
[2025-02-23] MEDS: GABAPENTIN 300 MG CAPSULE PO (21:03)
[2025-02-23] MEDS: BACLOFEN 10 MG TABLET 5 MG PO (21:03)
[2025-02-24 01:53] VITALS: BP 123/74; PULSE 79; RESP 18; TEMP 36.5; O2SAT 91
[2025-02-24] MEDS: HYDROCODONE/ACET 5/325 TABLET 1 TAB PO ×2 (07:57→11:41)
[2025-02-24] MEDS: PANTOPRAZOLE DR 40 MG TABLET PO (07:57)
[2025-02-24 08:00] VITALS: BP 130/83; PULSE 88; RESP 18; TEMP 36.8; O2SAT 93
--- NOTE | 2025-02-24 08:00 | DI.MRI.S_ITS ---
PROCEDURE: MR LUMBAR SPINE WO CON INDICATIONS: LE weakness TECHNIQUE: Noncontrast sagittal T1 spin echo and T2 fast echo, sagittal STIR, and T2 fast spin echo through the lumbar spine. In cases with scoliosis, additional coronal T2 fast spin echo may be performed. COMPARISON: [facility], MR, MR LUMBAR SPINE WO CON, 12/03/2022, 20:59. FINDINGS: Image quality: Excellent. Alignment and Curvature: Trace retrolisthesis of L2 on L3, unchanged. Posterior fusion is present at L3 and L4. Disc spacer is present at L3-4. Bone Marrow: Marrow is of normal overall signal. Mild reactive endplate changes are present at L2-3. No acute vertebral body compression fractures. Spinal Cord: Conus medullaris terminates at the L1 level. Visualized cord demonstrates normal signal and size. Paraspinous Soft Tissues: No paravertebral masses. Discs: Multilevel disc desiccation most severe at L2-3. T12-L1: No disc bulge, spinal stenosis or foraminal narrowing. No interval change. L1-L2: Mild disc bulge with mild spinal stenosis. Facet and ligamentum flavum hypertrophy are present. Minimal bilateral foraminal narrowing unchanged. L2-L3: Mild disc bulge with trace canal narrowing. Moderate bilateral foraminal narrowing with facet and ligamentum flavum hypertrophy. narrowing with facet and ligamentum flavum hypertrophy. No interval change. L3-L4: Postsurgical changes are present. No spinal stenosis. Moderate bilateral foraminal narrowing, unchanged. L4-L5: Mild disc bulge with mild spinal stenosis, unchanged. Foramina are poorly evaluated secondary to artifact. However, there is felt to be likely [id number] right and mild left foraminal narrowing without significant change. L5-S1: Mild disc bulge with small superimposed posterior central protrusion. Minimal spinal stenosis. No significant foraminal narrowing. No interval change. IMPRESSION: Postsurgical and degenerative changes overall stable compared to prior exam. Foraminal narrowing remains most prominent at L2-3 secondary to facet/ligamentum flavum arthropathy. Dictated by: Princess Rod M.D. on 02/24/2025 at 10:24 Approved by: Princess Rod M.D. on 02/24/2025 at 10:39
[2025-02-24] MEDS: ENOXAPARIN 40 MG/0.4 ML SYRINGE SUBCUT (08:14)
[2025-02-24] MEDS: TRIMETH/SULFA 160/800 (DS) TABLET 1 TAB PO ×2 (08:14→20:49)
[2025-02-24] MEDS: CHOLECALCIFEROL (VITAMIN D3) 1,000 UNIT TABLET 2000 UNIT PO (08:14)
[2025-02-24] MEDS: FOLIC ACID 1 MG TABLET PO (08:14)
[2025-02-24] MEDS: FERROUS SULFATE 325 MG TABLET PO (08:14)
[2025-02-24] MEDS: PROGESTERONE, MICRONIZED 100 MG CAPSULE PO (08:14)
[2025-02-24] MEDS: predniSONE 20 MG TABLET 40 MG PO (08:14)
[2025-02-24] MEDS: CYANOCOBALAMIN (VITAMIN B-12) 500 MCG TABLET PO (08:14)
--- NOTE | 2025-02-24 08:23 | PM.PN.IH.1 ---
Subjective Subjective Date Patient Seen: 02/24/25 Time Patient Seen: 08:23 Interval history: Patient downstairs and diagnostic imaging for MRI when I came to see her this morning Spouse was waiting in the room. Says she was seems a bit more lucid but still has trouble holding a conversation loses her thought very quickly Up a little bit with physical therapy although lots of pain and some lower extremity weakness which is why I ordered the MRI Respiratory status seems stable to improved. Still requiring small amounts of oxygen replacement therapy Exam Vital Signs (past 8 hours): - 02/24/25 01:53 02/24/25 08:00 Temperature 97.7 F 98.2 F Pulse Rate 79 88 Respiratory Rate 18 18 Blood Pressure 123/74 130/83 Pulse Oximetry 91 93 Oxygen Flow Rate 1 1 Fraction of Inspired Oxygen 28 SaO2/FiO2 Ratio 339 Oxygen Delivery Method CPAP Oxygen Flow Rate 1 Objective Labs 02/21/25 05:33 02/22/25 06:08 [facility] Medical History Chronic headaches Peripheral edema Uncomplicated opioid dependence Psoriatic arthritis Chronic diarrhea Diverticular disease of colon Gilbert syndrome Pyloric ulcer (~02/2018) History of migraine headaches Psoriasis History of adenomatous polyp of colon (06/27/11) Rheumatoid arthritis (06/06/11) Surgical History Status post spinal surgery History of carpal tunnel repair Status post tubal ligation Family History Brother Age: 78 Hypertension High cholesterol Child Age: 60 Mental health problem Child Age: 57 MS (multiple sclerosis) Father Age: 103 Mental health problem Dementia Cardiac disease Mother Family history of colon cancer Colon cancer Cardiac disease Sister Age: 76 Hypertension High cholesterol Social History household members: spouse Smoking Status: Former smoker alcohol intake: current Assessment & Plan Assessment & Plan narrative: 1. Community-acquired pneumonia on patient on immunosuppression with methotrexate and infliximab-continue current antibiotic therapy including the oral Bactrim. Can probably begin to back off on antibiotic therapy since this was started on February 20. Today would be day 5. I would certainly continue the oral Bactrim for least 2 weeks just in case there is a Pneumocystis infection (the beta D glucan lab test that is still pending which might support the presence of a Pneumocystis infection) 2. Acute respiratory failure with hypoxia-oxygen replacement therapy and treatment of above pneumonia. May be slightly improved. No change in therapy continue to wean oxygen as able 3. Altered mental status/acute cognitive dysfunction-continue to hope that as we treat her underlying issues this will improve. No evidence of focal defect to suggest acute CVA etcetera. Imaging is unremarkable. Likely multifactorial alteration in mental status and cognition. 4. Rheumatoid and psoriatic arthritis-I placed patient on prednisone in an effort to try and more quickly resolve any active autoimmune disease. No dramatic improvement on the prednisone so far. Prednisone could also be somewhat helpful in the setting of a potential Pneumocystis pneumonia 5. Swallow-continue speech therapy evaluation. Fortunately no dramatic swallow issues identified so far 6. Nutrition-patient clearly nutritionally challenge with a BMI 17. Formal nutritional consult has been placed. Work on this in combination with her speech therapy as above 7. UTI-patient grew pansensitive E coli from her urine. All of the antibiotic she is receiving are probably effective against this. 8. Disposition-patient up yesterday with physical therapy. Lots of pain in to some degree maybe weakness in her lower extremities. MRI of her back was ordered and currently pending. I am not sure what we really would be able to offer her she was certainly not at this point today a surgical candidate and I doubt whether she was ever become 1 but it really does depend in part on findings and what benefit surgery might provide. Continue with skilled therapies continued treatment of above issues and re-evaluate on a day-to-day basis. Seems more likely than not to me that she will require placement that is usp for some period of time. Time-Based Coding :: [TOTAL MINUTES] spent with patient and on the chart (including review of chart, obtaining history, exam, reviewing outside data, placing orders, documenting exam and treatment plan, and counseling patient) on [DATE]. PROFEE Site Promotion Agent Document charge(s): Yes Charge Codes Subsequent inpatient/observation care: 27113
--- NOTE | 2025-02-24 10:32 | DIET.PN1 ---
Dietary Progress Note Assessment: f/u Recent PO intakes 50%. Still tolerating protein powder serving in soft foods (mashed potatoes) 1-2x per day and additionally having protein smoothie or ONS per preference 1x/day to support intakes. Met with pt at bedside this afternoon. Sipping on protein smoothie at bedside. Has opened Ensure off to side as well. Reports tolerating both. Attempted to discuss option of having ONS at home. Pt reports head is fuzzy, conversation postponed. F/u to discuss nutrition to support EER at home. Ht: 157.48 cm Wt: 43 kg BMI: 17.8 UBW: 48.619 kg on 11/01/24 (-11.5% weight loss in 4 months, severe) Last BM: 02/20/25 (02/20/25 20:11) MNA: 6 Ryan Score: 14 Diet: 02/20/25 Breakfast General (Regular) Diet Diet Modifications: Nutrition Percent Meal Consumed 50% 02/23/25 18:00 Percent Meal Consumed 50% 02/23/25 10:00 Percent Meal Consumed 25% 02/22/25 18:00 Labs: RBC 4.08 X10^6/uL (4.0-5.2) 02/21/25 05:33 Hgb 14.0 g/dL (12.0-16.0) 02/21/25 05:33 Hct 41.2 % (36-46) 02/21/25 05:33 Creatinine 0.39 mg/dL (0.52-1.04) L 02/22/25 06:08 Lactate 1.5 mmol/L (0.7-2.1) 02/20/25 14:15 NT-Pro-B Natriuret Pep 2460 pg/mL (<450) H 02/20/25 16:15 Nutrition Diagnosis: Severe acute Protein Calorie Malnutrition r/t inadequate oral intakes as evidenced by 11.5% weight loss within 4 months (severe), moderate muscle mass wasting (temples, deltoid) and BMI severely underweight for age (17.3) Interventions: -Continue ONS or protein smoothie or unflavored protein supplement added in tolerated foods (i.e mashed potatoes, hot cereal) with all meals EER: [id number] kcals (30-35 kcals/kg) 65 g protein (1.5 g/kg per PCM vs 20% kcals) Monitoring/Evaluations: PO intakes Electronically Signed by: Marline Hudson 02/24/25 10:32 Clinical Dietitian [address] [address]
--- NOTE | 2025-02-24 11:37 | CM.DPNOTE ---
DCP Cont Reviewed chart. Patient discussed in multidisciplinary rounds. patient with MRI pending due to confusion. ecoli in the urine, on IV abx. Patient remains on O2, and requiring 1-2 p assist from bedside care team. Plan remains discharge home w/family, although, reassessment of need would be helpful closer to discharge. CM team following clinical course closely in case any discharge needs or concerns arise. BREEZY
[2025-02-24 12:00] VITALS: PULSE 88; RESP 20; O2SAT 97
--- NOTE | 2025-02-24 12:00 | PT.IPTN ---
Current Diagnoses Pneumonia, unspecified organism (02/20/25) Physical Therapy Treatment Note M2 PT-IP Current Condition Start: 02/23/25 11:44 Freq: NEEDED Status: Active Protocol: Document 02/23/25 11:15 DLM (Rec: 02/23/25 12:28 DLM Desktop) Physical Therapy Current Condition Current Condition Evaluation Date 02/23/25 Treatment Diagnosis PNA, weakness and impaired gait Onset Date 02/20/25 M3 PT-IP Subjective Start: 02/23/25 11:44 Freq: NEEDED Status: Active Protocol: Document 02/24/25 12:00 AB (Rec: 02/24/25 12:58 AB [id number]) Subjective Physical Therapy Visit Type Type Treatment Note Visit Start Time 12:00 Visit Stop Time 12:20 Number of INSTALLATIONS INSPECTOR Visits 0 Physical Therapy Visit Comments Patient Comments agreeable to do PT M4 PT-IP Mobility and Gait Start: 02/23/25 11:44 Freq: NEEDED Status: Active Protocol: Document 02/24/25 12:00 AB (Rec: 02/24/25 12:58 AB [id number]) PT-Bed Mobility Assessment Rolling Type of Rolling Log Rolling Level of Assist Maximal Assistance,2 Person Assistance Supine to Sit Supine to Sit Maximum Assistance,2 Person Assistance,Bedrails Sit to Supine Sit to Supine Maximum Assistance,Total Assistance,2 Person Assistance ,Bedrails Scooting Scooting to Edge of Bed Dependent Scooting Up and Down in Bed Dependent PT-Transfer Assessment Sit to and From Stand Sit to and from Stand Maximum Assistance,2 Person Assistance,Use of Upper Extremities Equipment Transfer Assistive Device Front Wheeled Walker Orthotic/Prosthetic Devices or Brace: No Comments Mobility Comments pt in bed and agreed to do PT. O2 sat with O2 on: 93% completed log roll supine to sit max A and max cues. max A for sitting balance on EOB. increase lateral lean to the L . total A for scooting to EOB . completed sit <>stand but not able to completely stand up requiring max A x 2 and max cues. pt requested to lay back in bed. max A x 2 to total A x 2 for sit to supine. positioned pt in bed total A x 2. call light and table placed within reach. Gait Assessment Comments Gait Comments unable M5 PT-IP Objective Assessments Start: 02/23/25 11:44 Freq: NEEDED Status: Active Protocol: Document 02/23/25 11:15 DLM (Rec: 02/23/25 12:28 DLM Desktop) Orientation Orientation/Cognition Level of Alertness Alert Orientation Name,Age,Birthday,Month,Date, Year,Day of Week,Place, Situation Safety Awareness Understands Safety Issues Comments Her answers a lot of the questions for her Gross Range of Motion Upper Extremity ROM Assessment Within Functional Limits Lower Extremity ROM Assessment Within Functional Limits Strength Upper Extremity Strength Assessment Bilaterally Impaired Lower Extremity Strength Assessment Bilaterally Impaired Comments Strength Comments generalized weakness throughout, pt unable to tolerate manual muscle testing due to severe skin tenderness . She needs assist to lift LE' s off bed. Pt using UE's functionally to reach for bed rails and hold FWW. Coordination Assessment Gross Coordination Gross Coordination WNL Sensation Assessment Comments Sensation Comments she reports no numbness when feet touched, her skin is pink /red and dry Muscle Tone Muscle Tone WNL Yes M6 PT-IP Treatment Start: 02/23/25 11:44 Freq: NEEDED Status: Active Protocol: Document 02/24/25 12:00 AB (Rec: 02/24/25 12:58 AB [id number]) Physical Therapy Treatment Education Education Provided Precautions,Safety M7 PT-IP Assessment and Plan Start: 02/23/25 11:44 Freq: NEEDED Status: Active Protocol: Document 02/24/25 12:00 AB (Rec: 02/24/25 12:58 AB [id number]) PT Summary Assessment and Plan Potential Rehabilitation Potential Fair Summary Impairments Pain,ROM,Strength,Balance, Coordination,Sensation,Tone, Cognition,Bed Mobility, Transfers,Gait,Activity Tolerance Progress Towards Goals Slow Progress due to Pain,Slow Progress due to Medical Issues,Slow Progress due to Activity Tolerance Assessment Summary pt requiring max a x 2 to total A x 2 with bed mobility. pt unable to get to upright position during sit<>stand despite max A x 2 provided. pt also has decrease activity tolerance affecting current mobility level. will continue to assess progress but at this time will require SNF rehab. Goals Bed Mobility Goal Standby Assistance Transfer Goal Contact Guard Assistance, Minimal Assistance,Front Wheeled Walker Gait Goal Contact Guard Assistance, Minimal Assistance,Front Wheel Walker Gait Distance 20 feet Days to Meet Goals 10 Frequency of Treatment Frequency Of Treatment Once a Day Treatment Plan Physical Therapy Treatment Plan Bed Mobility Training,Transfer Training,Gait Training, Therapeutic Exercise,Balance Retraining,Discharge Planning, Neuromuscular Re-ed Precautions Lumbar Precautions Log Roll Other Precautions fall; hazardous drug precaution Recommendations To Nursing Amount of Assist Needed Mechanical Lift Discharge Recommendations PT Discharge Recommendations SNF Rehab Transportation Needs at Discharge Stretcher/Ambulance - PT assist 2
--- NOTE | 2025-02-24 12:40 | OT.IP.TRT ---
Current Diagnoses Pneumonia, unspecified organism (02/20/25) Occupational Therapy Treatment Note M2 OT-IP Current Condition Start: 02/23/25 14:05 Freq: Status: Active Protocol: Document 02/23/25 14:05 [facility] (Rec: 02/23/25 14:30 [facility] Desktop) Occupational Therapy Current Condition Current Condition Evaluation Date 02/23/25 Treatment Diagnosis PNA, acute respiratory failure , AMS Diagnosis Onset Date 02/20/25 M3 OT- IP Subjective and Pain Start: 02/23/25 14:05 Freq: Status: Active Protocol: Document 02/24/25 12:29 [facility] (Rec: 02/24/25 12:39 [facility] Desktop) OT- Subjective Occupational Therapy Visit Type Type Treatment Note Visit Start Time 12:00 Visit Stop Time 12:25 Occupational Therapy Visit Comments Patient Comments Pt agreed to try to get up. Patient/Caregiver Goals To get better. OT Pain Assessment Pain When Pain Assessed At Rest Pain Present Pain Present Pain Reported Location Back Pain Behaviors Facial Grimacing,Moaning M4 OT- IP ADL's Start: 02/23/25 14:05 Freq: Status: Active Protocol: Document 02/24/25 12:29 [facility] (Rec: 02/24/25 12:39 [facility] Desktop) OT ADL-Grooming General Evaluation Grooming Ability Standby Assistance Comments OT Grooming Comments Pt able to was her hands after set-up of wash cloth. OT ADL-Oral Care Comments Oral Care Comments Assisted pt to wash her dentures out at the sink. OT ADL-Dressing General Eval Lower Body Dressing Ability Total Assistance OT ADL-Bathing Comments OT Bathing Comments Sponge bath more appropriate at this time. M5 OT- IP IADL's Start: 02/23/25 14:05 Freq: Status: Active Protocol: Document 02/23/25 14:05 [facility] (Rec: 02/23/25 14:30 [facility] Desktop) OT-Instrumental Activities of Daily Living Medication Management Medication Management Caregiver Administers Money Management Money Management Caregiver Provides Assistance Meal Preparation Meal Preparation Caregiver Provides Assist Service Restorer Emergency Service Restorer Emergency Caregiver Provides Assist M6 OT- IP Functional Cognition Start: 02/23/25 14:05 Freq: Status: Active Protocol: Document 02/24/25 12:29 [facility] (Rec: 02/24/25 12:39 [facility] Desktop) Cognitive Factors Limiting Selfcare Function Cognitive Comments Cognitive Assessment Comments Pt able to respond a little faster today , but still needing increased time and cues to move. To try SLUMS next OT session. M7 OT- IP Mobility and Balance Start: 02/23/25 14:05 Freq: Status: Active Protocol: Document 02/24/25 12:29 [facility] (Rec: 02/24/25 12:39 [facility] Desktop) OT- Bed Mobility Assessment Supine to Sit Supine to Sit Assist Maximum Assistance,2 Person Assistance Sit to Supine Sit to Supine Assist Total Assistance,2 Person Assistance OT-Transfer Assessment Comments Mobility Comments Pt needing MAX x2 to get up to the edge of the bed via log rolling and to scoot forwards. Pt too tired and requesting to lie back down. Pt repositioned and call light given OT- Balance Assessment Sitting Balance and Reactions Static Sitting Balance Ability Fair Dynamic Sitting Balance Ability Poor Comments Other Balance Tests/Deviations/Treatment Pt able to sit to the edge of : the bed better today but still tires quickly and having to lie back down. M8 OT- IP Objective Assessments Start: 02/23/25 14:05 Freq: Status: Active Protocol: Document 02/23/25 14:05 [facility] (Rec: 02/23/25 14:30 [facility] Desktop) OT Gross Range of Motion Upper Extremity Range of Motion Assessment Within Functional Limits OT Strength Upper Extremity Strength Assessment Bilaterally Impaired M9 OT- IP Assessment and Plan Start: 02/23/25 14:05 Freq: Status: Active Protocol: Document 02/24/25 12:29 [facility] (Rec: 02/24/25 12:39 [facility] Desktop) OT Summary Assessment and Plan Potential Rehabilitation Potential Fair Analytic Complexity at Evaluation Moderate Summary OT Impairments Pain,Strength,Balance, Functional Cognition, Functional Mobility,Self- Feeding,Grooming,Dressing, Toileting,Bathing,Toilet Transfers,Shower Transfers, Activity Tolerance Progress Towards Goals Slow Progress due to Pain,Slow Progress due to Medical Issues,Slow Progress due to Activity Tolerance,Slow Progress due to Cognition Assessment Summary Pending medical needs as pt had MRI to her back today, pt disposition to be determined. Pt able to participate in getting to the edge of the bed via log rolling but needing MAX AX 2. Goals Self-Feeding Goal Standby Assistance Grooming Goal Standby Assistance Dressing Goal Moderate Assistance Toileting Goal Minimal Assistance Bathing Goal Moderate Assistance Toilet Transfer Goal Moderate Assistance Shower Transfer Goal Moderate Assistance Days to Meet Goals 30 Frequency of Treatment Other frequency 5x/week Treatment Plan OT Treatment Plan ADL Training,Functional Cognition Training,Functional Mobility,Patient/Family Education,Discharge Planning Other Treatment Recommendations and Next SLUMS Treatment Focus Discharge Recommendations OT Discharge Recommendations SNF Rehab,LTAC Transportation Needs at Discharge Stretcher/Ambulance
--- NOTE | 2025-02-24 13:51 | SLP.IPNOTE ---
Treatment session attempted at 13:45. RN consulted and reported no overt difficulty with intake or observed s/sx of laryngeal penetration/aspiration. Reduced appetite noted in chart. Upon [facility] entry, pt expressed she was feeling tired and too nauseous for any intake. Reviewed safe swallowing recommendations with pt and RN. Plan to follow up x1 to ensure no further concerns or changes to swallowing function prior to d/c from [employer] services.
[2025-02-24 16:00] VITALS: BP 143/88; PULSE 83; RESP 20; TEMP 36.9; O2SAT 94
[2025-02-24] MEDS: cefTRIAXone 2,000 MG in SODIUM CHLORIDE 0.9% 100 ML 200 MG IV (17:58)
[2025-02-24 19:00] VITALS: BP 123/75; PULSE 93; RESP 20; TEMP 37; O2SAT 91
[2025-02-24] MEDS: GABAPENTIN 300 MG CAPSULE PO (20:48)
[2025-02-24] MEDS: BACLOFEN 10 MG TABLET 5 MG PO (20:48)
[2025-02-24 23:00] VITALS: BP 133/88; PULSE 86; RESP 20; TEMP 36.8; O2SAT 91
[2025-02-25 03:00] VITALS: BP 124/86; PULSE 76; RESP 18; TEMP 36.6; O2SAT 95
[2025-02-25] MEDS: PANTOPRAZOLE DR 40 MG TABLET PO (06:25)
[2025-02-25 07:00] VITALS: BP 138/86; PULSE 90; RESP 16; TEMP 36.6; O2SAT 93
[2025-02-25] MEDS: FERROUS SULFATE 325 MG TABLET PO (08:50)
[2025-02-25] MEDS: ACETAMINOPHEN 325 MG TABLET 650 MG PO ×2 (08:52→17:28)
[2025-02-25] MEDS: TRIMETH/SULFA 160/800 (DS) TABLET 1 TAB PO ×2 (08:53→22:00)
[2025-02-25] MEDS: CYANOCOBALAMIN (VITAMIN B-12) 500 MCG TABLET PO (08:53)
[2025-02-25] MEDS: HYDROCODONE/ACET 5/325 TABLET 1 TAB PO ×2 (08:53→17:29)
[2025-02-25] MEDS: CHOLECALCIFEROL (VITAMIN D3) 1,000 UNIT TABLET 2000 UNIT PO (08:53)
[2025-02-25] MEDS: SENNOSIDES 8.6 MG TABLET PO (08:53)
[2025-02-25] MEDS: FOLIC ACID 1 MG TABLET PO (08:54)
[2025-02-25] MEDS: ENOXAPARIN 30 MG/0.3 ML SYRINGE SUBCUT (08:54)
[2025-02-25] MEDS: predniSONE 20 MG TABLET 40 MG PO (08:54)
--- NOTE | 2025-02-25 09:25 | PT.IPTN ---
Current Diagnoses Pneumonia, unspecified organism (02/20/25) Physical Therapy Treatment Note M2 PT-IP Current Condition Start: 02/23/25 11:44 Freq: NEEDED Status: Active Protocol: Document 02/23/25 11:15 DLM (Rec: 02/23/25 12:28 DLM Desktop) Physical Therapy Current Condition Current Condition Evaluation Date 02/23/25 Treatment Diagnosis PNA, weakness and impaired gait Onset Date 02/20/25 M3 PT-IP Subjective Start: 02/23/25 11:44 Freq: NEEDED Status: Active Protocol: Document 02/25/25 09:25 AB (Rec: 02/25/25 11:08 AB Desktop) Subjective Physical Therapy Visit Type Type Treatment Note Visit Start Time 09:25 Visit Stop Time 10:50 Notes pt seen for split visits: 925 am to 945am and 1030 to 1050 am Number of SURGICAL INSTRUMENT MECHANIC Visits 0 Physical Therapy Visit Comments Patient Comments agreed to do PT M4 PT-IP Mobility and Gait Start: 02/23/25 11:44 Freq: NEEDED Status: Active Protocol: Document 02/25/25 09:25 AB (Rec: 02/25/25 11:08 AB Desktop) PT-Bed Mobility Assessment Rolling Type of Rolling Log Rolling Level of Assist Maximal Assistance Supine to Sit Supine to Sit Maximum Assistance,1 Person Assistance PT-Transfer Assessment Sit to and From Stand Sit to and from Stand Maximum Assistance,1 Person Assistance,Use of Upper Extremities Equipment Transfer Assistive Device Gait Belt,Front Wheeled Walker Orthotic/Prosthetic Devices or Brace: Yes Transfers Transfer Destination Chair Transfer Technique Stand Step Pivot Transfer Ability Level of Assist Maximum Assistance,1 Person Assistance,2 Person Assistance ,Use of Upper Extremities Comments Mobility Comments Pt in bed and agreed to do PT. Pt needing to be cleaned up. informed NAC. assisted NAC with pt for bed mobility. pt completed rolling to L<>R max A and max cues. NAC assisted pt with hygiene care. positioned pt in bed. Left pt with NAC. Checked on pt after round meeting. pt in bed and spouse in room. pt agreed to do PT. completed log roll supine to sit max A and max cues. max A for sitting balance on EOB. repositioned pt and pt able to sit min A using bed rail for support. completed sit to stand from EOB max A and max cues and step transfer to chair using fWW max A x 1-2 and max cues. pt needing encouragement to continue taking steps during transfers. pt rested. pt agreed to stand again for waffle cushion positioning needing max A and max cues. position pt on the chair total A x 2. call light and table placed within reach. Left pt with spouse. M5 PT-IP Objective Assessments Start: 02/23/25 11:44 Freq: NEEDED Status: Active Protocol: Document 02/23/25 11:15 DLM (Rec: 02/23/25 12:28 DLM Desktop) Orientation Orientation/Cognition Level of Alertness Alert Orientation Name,Age,Birthday,Month,Date, Year,Day of Week,Place, Situation Safety Awareness Understands Safety Issues Comments Her answers a lot of the questions for her Gross Range of Motion Upper Extremity ROM Assessment Within Functional Limits Lower Extremity ROM Assessment Within Functional Limits Strength Upper Extremity Strength Assessment Bilaterally Impaired Lower Extremity Strength Assessment Bilaterally Impaired Comments Strength Comments generalized weakness throughout, pt unable to tolerate manual muscle testing due to severe skin tenderness . She needs assist to lift LE' s off bed. Pt using UE's functionally to reach for bed rails and hold FWW. Coordination Assessment Gross Coordination Gross Coordination WNL Sensation Assessment Comments Sensation Comments she reports no numbness when feet touched, her skin is pink /red and dry Muscle Tone Muscle Tone WNL Yes M6 PT-IP Treatment Start: 02/23/25 11:44 Freq: NEEDED Status: Active Protocol: Document 02/25/25 09:25 AB (Rec: 02/25/25 11:08 AB Desktop) Physical Therapy Treatment Education Education Provided Safety M7 PT-IP Assessment and Plan Start: 02/23/25 11:44 Freq: NEEDED Status: Active Protocol: Document 02/25/25 09:25 AB (Rec: 02/25/25 11:08 AB Desktop) PT Summary Assessment and Plan Potential Rehabilitation Potential Fair Summary Impairments Pain,ROM,Strength,Balance, Coordination,Sensation,Tone, Cognition,Bed Mobility, Transfers,Gait,Activity Tolerance Progress Towards Goals Slow Progress due to Pain,Slow Progress due to Medical Issues,Slow Progress due to Activity Tolerance Assessment Summary pt requiring max A for bed mobility, max A for sit to stand and max A x 1-2 for step transfer to chair using FWW. pt requiring motivation to complete tasks. pt will require SNF rehab to improve overall strength and mobility. Goals Bed Mobility Goal Standby Assistance Transfer Goal Contact Guard Assistance, Minimal Assistance,Front Wheeled Walker Gait Goal Contact Guard Assistance, Minimal Assistance,Front Wheel Walker Gait Distance 20 feet Days to Meet Goals 10 Frequency of Treatment Frequency Of Treatment Once a Day Treatment Plan Physical Therapy Treatment Plan Bed Mobility Training,Transfer Training,Gait Training, Therapeutic Exercise,Balance Retraining,Discharge Planning, Neuromuscular Re-ed Precautions Lumbar Precautions Log Roll Other Precautions fall; hazardous drug precaution Recommendations To Nursing Amount of Assist Needed 2 Person Assist Discharge Recommendations PT Discharge Recommendations SNF Rehab Transportation Needs at Discharge Stretcher/Ambulance - PT assist 2
--- NOTE | 2025-02-25 09:40 | PM.PN.IH.1 ---
Subjective Subjective Date Patient Seen: 02/25/25 Time Patient Seen: 10:22 Interval history: Patient resting comfortably in bedside chair with and friend present. Reports feeling somewhat better than yesterday, still with persistent low back and leg pain that is more chronic in nature. MRI yesterday was unremarkable in terms of new findings, demonstrating stable postsurgical and degenerative changes of lumbar spine. Exam Vital Signs (past 8 hours): - 02/25/25 03:00 02/25/25 07:00 Temperature 97.9 F 98 F Pulse Rate 76 90 Respiratory Rate 18 16 Blood Pressure 124/86 138/86 Pulse Oximetry 95 93 Oxygen Flow Rate 1 Fraction of Inspired Oxygen 28 SaO2/FiO2 Ratio 339 Oxygen Delivery Method Nasal Cannula Oxygen Flow Rate 1 Objective Imaging MRI - lumbar: Radiologist's impression: Postsurgical and degenerative changes overall stable compared to prior exam. Foraminal narrowing remains most prominent at L2-3 secondary to facet/ligamentum flavum arthropathy. Dictated by: Princess Rod M.D. on 02/24/2025 at 10:24 Approved by: Princess Rod M.D. on 02/24/2025 at 10:39 Labs 02/21/25 05:33 02/22/25 06:08 Labs: Laboratory Results - last 24 hr 02/22/25 06:05 Ref Test (Refrig) Comment [facility] Medical History Chronic headaches Peripheral edema Uncomplicated opioid dependence Psoriatic arthritis Chronic diarrhea Diverticular disease of colon Gilbert syndrome Pyloric ulcer (~02/2018) History of migraine headaches Psoriasis History of adenomatous polyp of colon (06/27/11) Rheumatoid arthritis (06/06/11) Surgical History Status post spinal surgery History of carpal tunnel repair Status post tubal ligation Family History Brother Age: 78 Hypertension High cholesterol Child Age: 60 Mental health problem Child Age: 57 MS (multiple sclerosis) Father Age: 103 Mental health problem Dementia Cardiac disease Mother Family history of colon cancer Colon cancer Cardiac disease Sister Age: 76 Hypertension High cholesterol Social History household members: spouse Smoking Status: Former smoker alcohol intake: current Assessment & Plan Assessment & Plan narrative: 1. Community acquired pneumonia Fungitell [id number]-[id number] positive increasing the odds of Pneumocystis pneumonia given patient on immunosuppression with methotrexate and infliximab for her RA. -continue oral Bactrim DS BID for 21 days (02/21-03/13) -stop ceftriaxone (02/20-02/24) 2. Acute respiratory failure with hypoxia Currently on 1L supplemental O2 for treatment of above pneumonia. -wean as tolerated 3. Altered mental status/acute cognitive dysfunction Continue to hope that as we treat her underlying issues this will improve. No evidence of focal defect to suggest acute CVA. Imaging is unremarkable. Likely multifactorial alteration in mental status and cognition. 4. Rheumatoid and psoriatic arthritis Started oral prednisone in an effort to try and more quickly resolve any active autoimmune disease. Reports some mild improvement. Could also be somewhat helpful in the setting of a potential Pneumocystis pneumonia. -continue oral prednisone 40mg daily 5. Swallow Fortunately no dramatic swallow issues identified so far. -continue speech therapy evaluation 6. Nutrition Patient clearly nutritionally challenge with a BMI 17. Formal nutritional consult has been placed. -work on this in combination with her speech therapy as above 7. UTI Patient grew pansensitive E coli from her urine -s/p ceftriaxone IV (02/20-02/24) 8. Disposition Patient up with physical therapy. Lots of pain initially, possibly due in part to weakness in her lower extremities. MRI of her back showed stable chronic degenerative changes. Continue with skilled therapies continued treatment of above issues and re-evaluate on a day-to-day basis. PT recommending SNF rehab, discharge pending placement. Time-Based Coding :: 40 minutes spent with patient and on the chart (including review of chart, obtaining history, exam, reviewing outside data, placing orders, documenting exam and treatment plan, and counseling patient) on 02/25/2025. 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
--- NOTE | 2025-02-25 11:09 | PT-IP ANOTE ---
per hospitalist during rounds: hold PT today. hospitalist stated that pt will be diuresed more today and can be hypotensive and to hold PT today.
[2025-02-25 12:00] VITALS: BP 124/82; PULSE 93; RESP 18; TEMP 37; O2SAT 95
[2025-02-25] MEDS: PROGESTERONE, MICRONIZED 100 MG CAPSULE PO (12:25)
--- NOTE | 2025-02-25 16:13 | CM.DPNOTE ---
DCP Cont According to PT; patient is 2p max assist. Met w/patient and her spouse, reviewed discharge plan. Patient remains hopeful she can return home w/spouse to assist. Spouse unsure this will be a safe option. Discussed SNF options and patient/sp prefer [facility] if Dr Dobbins recommends. Patient/sp request a hold on the SNF referral until they review this plan with Dr Dobbins Thursday; and also to see if patient has made any progress with PT. Plan: Discharge to SNF is anticipated, [facility] if they have female beds this week, patient wants to discuss this with Dr Dobbins Thursday. If [facility], referral and [facility] needed. BREEZY
[2025-02-25 17:00] VITALS: BP 139/80; PULSE 104; RESP 15; TEMP 36.6; O2SAT 94
[2025-02-25] MEDS: cefTRIAXone 2,000 MG in SODIUM CHLORIDE 0.9% 100 ML 200 MG IV (17:34)
[2025-02-25 20:00] VITALS: BP 130/78; PULSE 82; RESP 19; TEMP 36.3; O2SAT 94
[2025-02-25] MEDS: BACLOFEN 10 MG TABLET 5 MG PO (21:53)
[2025-02-25] MEDS: GABAPENTIN 300 MG CAPSULE PO (21:56)
[2025-02-26] VITALS (7 sets, daily range): BP systolic 95–132; BP diastolic 64–83; PULSE 76–102; RESP 16–19; TEMP 36.4–36.7; O2SAT 91–96
[2025-02-26] MEDS: PANTOPRAZOLE DR 40 MG TABLET PO (05:59)
[2025-02-26] MEDS: FERROUS SULFATE 325 MG TABLET PO (08:34)
[2025-02-26] MEDS: PROGESTERONE, MICRONIZED 100 MG CAPSULE PO (08:34)
[2025-02-26] MEDS: TRIMETH/SULFA 160/800 (DS) TABLET 1 TAB PO ×3 (08:34→20:48)
[2025-02-26] MEDS: predniSONE 20 MG TABLET 40 MG PO (08:34)
[2025-02-26] MEDS: CHOLECALCIFEROL (VITAMIN D3) 1,000 UNIT TABLET 2000 UNIT PO (08:34)
[2025-02-26] MEDS: ENOXAPARIN 30 MG/0.3 ML SYRINGE SUBCUT (08:34)
[2025-02-26] MEDS: CYANOCOBALAMIN (VITAMIN B-12) 500 MCG TABLET PO (08:34)
[2025-02-26] MEDS: FOLIC ACID 1 MG TABLET PO (08:35)
[2025-02-26] MEDS: SENNOSIDES 8.6 MG TABLET PO (08:35)
[2025-02-26] MEDS: HYDROCODONE/ACET 5/325 TABLET 1 TAB PO ×3 (08:49→20:48)
--- NOTE | 2025-02-26 08:57 | PT-IP ANOTE ---
PT reviews chart and checks in on pt. She has had pain medication but she con't to c/o pain and she refuses OOB/mobility, working with PT. Con't PT efforts next date.
--- NOTE | 2025-02-26 10:49 | PM.PN.IH.1 ---
Subjective Subjective Date Patient Seen: 02/26/25 Interval history: Patient resting comfortably in bed with present. Reports persistent chronic MSK discomfort, no significant progress with PT over recent days. Discussed PT recommendation for discharge to SNF for additional rehabilitation prior to returning home. Patient and continue to hope for potential surgical resolution with her orthopedic surgeon, though this will have to be addressed at a future date. Exam Vital Signs (past 8 hours): - 02/26/25 04:00 02/26/25 08:00 Temperature 97.7 F 97.8 F Pulse Rate 77 102 H Respiratory Rate 16 18 Blood Pressure 125/81 111/64 Pulse Oximetry 96 91 Oxygen Flow Rate 1 2 Fraction of Inspired Oxygen 28 SaO2/FiO2 Ratio 339 Oxygen Delivery Method Room Air Oxygen Flow Rate 2 Objective Labs 02/21/25 05:33 02/22/25 06:08 [facility] Medical History Chronic headaches Peripheral edema Uncomplicated opioid dependence Psoriatic arthritis Chronic diarrhea Diverticular disease of colon Gilbert syndrome Pyloric ulcer (~02/2018) History of migraine headaches Psoriasis History of adenomatous polyp of colon (06/27/11) Rheumatoid arthritis (06/06/11) Surgical History Status post spinal surgery History of carpal tunnel repair Status post tubal ligation Family History Brother Age: 78 Hypertension High cholesterol Child Age: 60 Mental health problem Child Age: 57 MS (multiple sclerosis) Father Age: 103 Mental health problem Dementia Cardiac disease Mother Family history of colon cancer Colon cancer Cardiac disease Sister Age: 76 Hypertension High cholesterol Social History household members: spouse Smoking Status: Former smoker alcohol intake: current Assessment & Plan Assessment & Plan narrative: 1. Community acquired pneumonia Fungitell Ykft-H-[id number] positive increasing likelihood of Pneumocystis pneumonia given patient on immunosuppression with methotrexate and infliximab for her RA. -continue oral Bactrim DS BID for 21 days (02/21-03/13) -s/p ceftriaxone (02/20-02/24) -continue prednisone (02/21- ) 40 mg for 10 days, then 20 mg once daily on days 11 to 21, then taper 2. Acute respiratory failure with hypoxia Currently on 1L supplemental O2 for treatment of above pneumonia. -wean as tolerated 3. Altered mental status/acute cognitive dysfunction Continue to hope that as we treat her underlying issues this will improve. No evidence of focal defect to suggest acute CVA. Imaging unremarkable. Likely multifactorial alteration in mental status and cognition. 4. Rheumatoid and psoriatic arthritis Started oral prednisone in an effort to try and more quickly resolve any active autoimmune disease. Reports some mild improvement. Could also be somewhat helpful in the setting os suspected Pneumocystis pneumonia. -continue oral prednisone as above 5. Swallow Fortunately no dramatic swallow issues identified so far. -continue speech therapy evaluation 6. Nutrition Patient clearly nutritionally challenge with a BMI 17. Formal nutritional consult has been placed. -work on this in combination with her speech therapy as above 7. UTI Patient grew pansensitive E coli from her urine. -s/p ceftriaxone IV (02/20-02/24) 8. Disposition Patient up with physical therapy recently but refused this morning. Lots of pain from chronic degenerative spine condition. MRI of her back showed stable chronic degenerative changes. Continue with skilled therapies continued treatment of above issues and re-evaluate on a day-to-day basis. PT recommending SNF rehab, discharge pending placement. Time-Based Coding :: 25 minute spent with patient and on the chart (including review of chart, obtaining history, exam, reviewing outside data, placing orders, documenting exam and treatment plan, and counseling patient) on 02/26/2025. PROFEE Strategic Sourcing Specialist Document charge(s): Yes Charge Codes Subsequent inpatient/observation care: [id number]
--- NOTE | 2025-02-26 14:20 | CM.DPC ---
DCP: Referral was sent to [facility], patient in agreement. Spouse and son at bedside. Called Melanie over at [facility], she reviewed. Should be able to accept patient tomorrow, but would need to let patient know that there is one COVID positive patient in their facility. Did update patient and family, she is aware. Also, she gets a Rheumatoid Injection in [place] every 2 months, [employer], and they do not provide, due to cost, may have to be pushed back. Asked patient's spouse when she is due, he seems to think a couple of weeks, not sure, but will look into it and call the [facility] desk, placed number on white board. Will need to send webex to Dr. Dobbins in the am to see if he can discharge and do orders. Passing this information along to [employer]. Belinda Park, RN/Nitro Man
[2025-02-26] MEDS: cefTRIAXone 2,000 MG in SODIUM CHLORIDE 0.9% 100 ML 200 MG IV (17:07)
[2025-02-26] MEDS: BACLOFEN 10 MG TABLET 5 MG PO (20:45)
[2025-02-26] MEDS: GABAPENTIN 300 MG CAPSULE PO (20:45)
[2025-02-26] MEDS: SODIUM CHLORIDE 0.9% FLUSH 10 ML IV (20:45)
--- NOTE | 2025-02-26 23:28 | PC.NURSE ---
pt here with a pnumonia/uti. Pt has PI to her bottom. Pt has history of chronic patient and tonight is not letting this nurse or the PCT repositioned her. This nurse wasn't allow to look at her bottom to assess her dressings to her PI. Pt is alert to self but at times forgetful. She states to this nurse I don't want to get any bedsores, I will move by bottom from time to time in the bed. Pt eventually let the PCT repositioned her but only using the tilt device built into the bed. This nurse will continue to encourage pt to let us repositioned her using pillows.
[2025-02-27] MEDS: HYDROCODONE/ACET 5/325 TABLET 1 TAB PO ×5 (02:36→20:19)
[2025-02-27 04:10] VITALS: BP 106/76; PULSE 88; RESP 18; TEMP 36.6; O2SAT 95
[2025-02-27 06:07] LABS: Add Manual Diff / Slide Review NO; Basophils Absolute Auto 0 /uL (0-100); Basophils Percent Auto 0.3 % (0-2); Eosinophils Absolute Auto 0 /uL (0-450); Eosinophils Percent Auto 0.1 % (2-4); Hematocrit 41.5 % (36-46); Lymphocytes Absolute Auto 1000 /uL (1100-4500); Lymphocytes Percent Auto 17.5 % (25-40); Mean Corpuscular HGB Conc 33.7 % (30-36); Mean Corpuscular Volume 100.8 fL (80-100); Monocytes Absolute Auto 500 /uL (0-900); Neutrophils Absolute Auto 4000 /uL (1500-7000); Neutrophils Percent Auto 73.1 % (50-75); Platelet Count 325 X10^3/uL (150-400); Red Blood Cell Count 4.12 X10^6/uL (4.0-5.2); Red Cell Distribution Width 15.5 % (11.6-14.8); White Blood Cell Count 5.4 X10^3/uL (4.5-11.0)
[2025-02-27 06:22] LABS: Alanine Aminotransferase 46 IU/L (<35); Albumin 3.1 g/dL (3.5-5.0); Albumin Globulin Ratio 1.1 (1.0-2.8); Alkaline Phosphatase 85 U/L (38-126); Aspartate Aminotransferase 43 IU/L (14-36); BUN Creatinine Ratio 35.6 (6-22); Bilirubin Total 0.4 mg/dL (0.2-1.3); Blood Urea Nitrogen 16 mg/dL (7-17); Calcium 9.2 mg/dL (8.4-10.2); Carbon Dioxide 27 mmol/L (22-32); Chloride 102 mmol/L (98-107); Estimated Glomerular Filt Rate > 60 mL/min (>60); Globulin 2.8 g/dL (1.7-4.1); Glucose 126 mg/dL (70-99); HEMOLYSIS 17 (0-50); Potassium 4.6 mmol/L (3.4-5.1); Sodium 132 mmol/L (137-145); Total Protein 5.9 g/dL (6.3-8.2)
[2025-02-27] MEDS: PANTOPRAZOLE DR 40 MG TABLET PO (06:36)
[2025-02-27 07:57] VITALS: O2SAT 95
--- NOTE | 2025-02-27 07:58 | P.DS_ITS ---
History of Present Illness History of Present Illness Date Patient Seen: 02/28/25 Time Patient Seen: 08:26 Chief complaint: has trouble swallowing, not eating much Narrative: 79-year-old female well known to me with severe rheumatoid and psoriatic arthritis admitted via the emergency department with pneumonia. She presented with spouse who noted increasing confusion decreased appetite over several days. Patient was self was able to endorse body wide pain but denied any specific other symptoms including cough shortness of breath chest pain ER evaluation documented changes on plain film chest x-ray followed by ground- glass changes bilaterally on CT scan. She was mildly hypoxic. She had normal white blood cell count and chemistries essentially unremarkable. Borderline troponin without acute ischemia on ECG. Also normal head CT Tox screen positive for THC and opiates as expected Discharge Providers Provider Date of admission: 02/20/25 19:35 Discharge Date: 02/28/25 Primary care physician: Ilir Dobbins MD Consults: 02/20/25 20:57 Consult to Dietitian, Adult Routine Comment: Reason For Exam: decrease appetite, weight loss 02/22/25 06:42 Consult to Speech Therapy Evaluate & Treat Comment: reported cough with oral intake Physician Instructions: Evaluate and treat 02/22/25 06:43 Consult to Discharge Planning Routine Comment: Consult to Occupational Therapy Evaluate & Treat Comment: Physician Instructions: Evaluate and treat Consult to Physical Therapy Evaluate & Treat Comment: weakness Physician Instructions: Evaluate and Treat Discharge provider: Ilir Dobbins MD Summary Hospital Course Discharge Diagnosis: 1. Acute hypoxic respiratory failure secondary to pneumonia 2. Community-acquired pneumonia, with atypical features, concern for Pneumocystis 3. Chronic immunosuppression due to medication 4. Chronic back pain 5. Rheumatoid arthritis 6. Acute metabolic encephalopathy 7. Chronic headaches 8. Psoriatic arthritis 9. Acute cystitis with E coli Hospital Course: As above patient was admitted with respiratory failure and altered mental status Imaging demonstrated an atypical appearance of her pneumonia consistent either with an atypical organism or perhaps something related to her chronic autoimmune suppression. There was concern for atypical organisms given her immunosuppression as well as a community-acquired pneumonia. She was started initially on broad-spectrum antibiotics with the addition of trimethoprim sulfamethoxazole for possible Pneumocystis pneumonia. Patient's beta D glucan test was positive supporting the probability of Pneumocystis pneumonia. She was treated for 3 days with the azithromycin and additional 2 days with ceftriaxone. She was continued on the trimethoprim sulfamethoxazole. Her oxygen requirement decreased but did not disappear. She clinically seems stable and will complete 3 week total treatment for possible Pneumocystis pneumonia with the oral trimethoprim sulfamethoxazole Patient also found to have a E coli infection of her bladder. The coli was pansensitive and she had been well treated with the antibiotics administered for her pneumonia. Patient's mental status waxed and waned. By the morning of discharge she was much improved. Obviously seem like her encephalopathy had cleared. She was frustrated with her ongoing pain and lack of findings to allow for quick correction or fix. Patient was severe ongoing back pain which started prior to this hospitalization. She had been seen in consultation by her back surgeon in [place] (Dr. Mosquera). Given inability of patient really to participate with physical therapy MRI he was performed of her lumbar spine which failed to demonstrate any acute surgical lesions. Chronic disease only was present. Patient was continued on her oral pain meds as well as topical lidocaine etcetera. With this patient he was able to only minimally participate with skilled therapies. Patient was started on prednisone in an effort to suppress any of the autoimmune component to her chronic musculoskeletal pain. This includes psoriatic arthritis rheumatoid arthritis etcetera. That has no dramatic improvement but perhaps some slight improvement with time. Prednisone should be tapered over the next 10-14 days or so. Patient also quite nutritionally challenge with a BMI of only 17.3. She qualifies he was having severe acute protein calorie malnutrition due to inadequate oral intake as noted by our clinical dietitian. Protein supplement was added to her oral intake and she was seem to tolerate this well. It seems to me that her malnutrition is a large contributing factor to her overall decline and inability to rebound quickly. Hopefully if we can improve her nutrition she will begin to improve on all aspects of her health. Patient was, in consultation with skilled therapies, not felt to be safe for return home. She will be discharged to senior living to continue rehabilitation. I think getting her nutritional status significantly improved as well as the above therapies including treatment for her pneumonia should help to reverse this downhill slide and allow her to return home Patient due for next Remicade infusion on March 24 that is per spouse. Obviously this will be held while she is at senior living. This is discussed with patient that is spouse as well. Status at Discharge Cognitive/behavioral status at discharge: at baseline, confused Functional status at discharge: uses cane/walker Overall status at discharge: patient is progressing back to baseline Time Spent with Patient Time spent: Greater than 30 minutes Exam Vital Signs (past 8 hours): - 02/27/25 04:10 02/27/25 07:57 Temperature 97.8 F Pulse Rate 88 Respiratory Rate 18 Blood Pressure 106/76 Pulse Oximetry 95 95 Oxygen Delivery Method Nasal Cannula Oxygen Flow Rate 2 2 Fraction of Inspired Oxygen 28 Fraction of Inspired Oxygen 28 SaO2/FiO2 Ratio 339 Oxygen Delivery Method Nasal Cannula Oxygen Flow Rate 2 Objective Labs 02/27/25 05:20 02/27/25 05:20 Labs: Laboratory Results - last 24 hr 02/27/25 05:20 WBC 5.4 RBC 4.12 Hgb 14.0 Hct 41.5 MCV 100.8 H MCH 34.0 MCHC 33.7 RDW 15.5 H Plt Count 325 Neut % (Auto) 73.1 Lymph % (Auto) 17.5 L [place] % (Auto) 9.0 Eos % (Auto) 0.1 L Baso % (Auto) 0.3 Neut # (Auto) 4000 Lymph # (Auto) 1000 L [place] # (Auto) 500 Eos # (Auto) 0 Baso # (Auto) 0 Sodium 132 L Potassium 4.6 Chloride 102 Carbon Dioxide 27 BUN 16 Creatinine 0.45 L Estimated GFR > 60 BUN/Creatinine Ratio 35.6 H Glucose 126 H Calcium 9.2 Total Bilirubin 0.4 AST 43 H ALT 46 H Alkaline Phosphatase 85 Total Protein 5.9 L Albumin 3.1 L Globulin 2.8 Albumin/Globulin Ratio 1.1 [facility] Medical History Chronic headaches Peripheral edema Uncomplicated opioid dependence Psoriatic arthritis Chronic diarrhea Diverticular disease of colon Gilbert syndrome Pyloric ulcer (~02/2018) History of migraine headaches Psoriasis History of adenomatous polyp of colon (06/27/11) Rheumatoid arthritis (06/06/11) Surgical History Status post spinal surgery History of carpal tunnel repair Status post tubal ligation Family History Brother Age: 78 Hypertension High cholesterol Child Age: 60 Mental health problem Child Age: 57 MS (multiple sclerosis) Father Age: 103 Mental health problem Dementia Cardiac disease Mother Family history of colon cancer Colon cancer Cardiac disease Sister Age: 76 Hypertension High cholesterol Social History household members: spouse Smoking Status: Former smoker alcohol intake: current Discharge Assessment & Plan Assessment and Plan Plan of Treatment: Discharge he was senior living continue with treatment for her pneumonia Continue with skilled therapies to hopefully improve her weakness inability to be independent Continued focus on nutritional challenges and improving her malnutrition. Discharge Plan Discharge Plan Patient Disposition: SNF Transfer to: [facility] Consult as needed: Dental, Hearing, Mental health, Podiatry and Vision Discharge orders & Medications Prescriptions: New prednisone 20 mg Tablet 40 mg PO DAILY Qty: 30 0RF sulfamethoxazole-trimethoprim 800-160 mg Tablet 1 tab PO BID 14 Days Qty: 28 0RF Rx Instructions: Last day of treatment is March 13, 2025 Continued sumatriptan succinate 50 mg tablet See Rx Instructions PO .COMPLEX MDD 100 mg Qty: 72 3RF Rx Instructions: take 1 tab at onset of headache; if no relief may repeat 1 tab after at least 2 hrs; max = 2 tabs/24 hr. Do not exceed 100 mg in 24 hours. No more than 3 days of treatment per week. estradiol 0.05 mg/24 hr patch weekly 1 patch topical QWEEK Qty: 12 3RF pantoprazole 40 mg tablet,delayed release (DR/EC) 40 mg PO DAILY Qty: 90 1RF progesterone micronized 100 mg capsule 100 mg PO DAILY Qty: 90 1RF hydrochlorothiazide 25 mg tablet 25 mg PO DAILY Qty: 90 3RF cholecalciferol (vitamin D3) 1,000 unit capsule 2,000 unit PO DAILY Vitamin B12 0.5 mg 1,000 mg PO DAILY methotrexate sodium 2.5 mg tablet 7.5 mg PO QWEEK Rx Instructions: -- Hasn't startd med yet -- 02/18/21 infliximab [Remicade] 100 mg recon soln 100 mg IV [id number] Rx Instructions: last dose 02/13 ferrous sulfate 325 mg (65 mg iron) tablet 325 mg PO DAILY folic acid 1 mg tablet 1 mg PO DAILY azelastine 205.5 mcg (0.15 %) spray,non-aerosol 2 spray intranasal BID Qty: 30 2RF Rx Instructions: administer into each nostril meloxicam 7.5 mg tablet 7.5 mg PO DAILY Qty: 30 3RF calcium carbonate [Calcium 600] 600 mg calcium (1,500 mg) tablet 1,200 mg PO DAILY baclofen 5 mg tablet 5 mg PO BEDTIME gabapentin 300 mg capsule 600 mg PO QPM hydrocodone-acetaminophen 10-325 mg tablet 1 - 2 tab PO Q4-6H MDD 5 tabs PRN (Reason: pain) Qty: 30 0RF lidocaine 4 % adhesive patch,medicated 1 patch topical DAILY PRN (Reason: pain) Qty: 15 0RF Discontinued methylprednisolone 4 mg tablet 4 mg PO DAILY Qty: 90 1RF Rx Instructions: (ignore previous Rx instructions to taper) dexamethasone 2 mg tablet 2 mg PO DAILY Qty: 30 0RF No Action (DME) Disabled Parking Qty: 1 0RF Rx Instructions: Patient qualifies for disabled parking as per the attached form. Follow up/Referrals: Ilir Dobbins MD [Primary Care Provider] - Discharge Health Status Multidrug resistant organism: No MDRO Precautions: [place] Diet/Activity/Treatments Diet: Diet as Tolerated Liquid consistency: Normal/Thin Food texture: Regular Special Rehabilitation Services Reason for rehabilitation: Recovery r/t decondition Rehab type: Physical therapy, Occupational therapy and Speech therapy Visit Report/Discharge Packet Stand Alone Forms: Patient Portal/API Discharge Data Primary Care Provider: Ilir Dobbins PROFEE Charge Codes Discharge inpatient/observation: [id number]
[2025-02-27 08:00] VITALS: BP 134/83; PULSE 102; RESP 18; TEMP 36.8; O2SAT 92
[2025-02-27] MEDS: FERROUS SULFATE 325 MG TABLET PO (08:48)
[2025-02-27] MEDS: FOLIC ACID 1 MG TABLET PO (08:48)
[2025-02-27] MEDS: SENNOSIDES 8.6 MG TABLET PO (08:48)
[2025-02-27] MEDS: predniSONE 20 MG TABLET 40 MG PO (08:48)
[2025-02-27] MEDS: CHOLECALCIFEROL (VITAMIN D3) 1,000 UNIT TABLET 2000 UNIT PO (08:48)
[2025-02-27] MEDS: CYANOCOBALAMIN (VITAMIN B-12) 500 MCG TABLET PO (08:48)
[2025-02-27] MEDS: PROGESTERONE, MICRONIZED 100 MG CAPSULE PO (08:49)
[2025-02-27] MEDS: ENOXAPARIN 30 MG/0.3 ML SYRINGE SUBCUT (08:49)
[2025-02-27] MEDS: TRIMETH/SULFA 160/800 (DS) TABLET 1 TAB PO ×2 (08:52→20:19)
[2025-02-27] MEDS: SODIUM CHLORIDE 0.9% FLUSH 10 ML IV ×2 (09:00→20:20)
--- NOTE | 2025-02-27 09:43 | ST.IPDYTX ---
Visit Care Team Role Provider Type Moira Sue DO Emergency Provider Physician Referring Provider Specialty: Emergency Medicine Address: [address] [place] [address], [id number] Email: [email or web address] Ilir Dobbins MD Attending Provider Physician Primary Care Provider Specialty: Internal Medicine Address: [address] [place] [address], [address], [place], [address] Email: [email or web address] Anu Ambrocio MD Admit Provider Physician Other Providers Specialty: Family Practice Address: [facility], [address], [place], [address] Email: [email or web address] COMB WINDER Dysphagia Treatment COMB WINDER Dysphagia Treatment Start: 02/23/25 14:24 Freq: Status: Active Protocol: Document 02/27/25 09:37 MA (Rec: 02/27/25 09:43 MA Desktop) Dysphagia Treatment Session Time Visit Start Time 09:00 Visit Stop Time 09:25 Total Visit Minutes 25 Visit Information Visit Number 3 Setting Assessment Location Acute Care Visit Type Note Type Treatment Note Next Note Type Next Note Type Treatment Note Patient Information Identification Type Name Subjective Observations Pt present upon ST entering room. Pt sitting upright in bed. Pt consumed part of a muffin, clear Ensure , and some eggs for breakfast. Pt alert on 2L of supplemental oxygen via nasal cannula. Pt agreeable to participate in PO trials with ST. Pt Ox3. Treatment Liquids Trialed Thin (IDDSI 0) Solids Trialed Regular (IDDSI 7) Administration Type Cup Consecutive Sips,Straw, Self-Feeding Oral Strategies Upright at 90 degrees,Lingual Sweep,Alternate Liquids/Solids Pharyngeal Strategies Sitting Upright (90 deg),Small Bites and Sips Treatment Activities Therapeutic PO trials of thin liquids (clear Ensure) via straw and regular solids ( turkey sandwich) completed while assessing for s/sx of oral and pharyngeal dysphagia. The IDDSI Framework Protocol: IDDSI.1 Assessment Patient Response to Treatment Good Rehab Potential Good Assessment of Improvement Pt consumed about 4-5 oz of thin clear ensure via straw. Pt with 1x cough reflex without consuming solids/ liquids, about 5 minutes after drinking. Pt exhibited prolonged oral holding with both thin liquids and regular solids and delayed swallow initiation. ST facilitated swallow initiation by cueing pt to swallow PO trials. Pt exhibited adequate oral clearance with thin liquid trials but moderate oral residue primarily in buccal pockets with regular solid trials. ST facilitated oral clearance by cueing pt to utilize liquid wash and lingual sweep. No overt s/sx of aspiration noted. No globus sensation reported. Recommend continuing baseline diet of regular solids and thin liquids with aspiration precautions (slow rate, small bites/sips, upright positioning, oral care) and oral clearance strategies ( liquid wash and lingual sweep) , medications as tolerated/ preferred by pt. This is supported by pt's WBC WNL and independence for feeding/oral care. ST recommends continuation of no straw as a safety precaution and educated her on reason why, as well as nursing on recommendations. ST recommends Pt d/c from ST at this time d /t Pt exhibiting no overt s/s of aspiration with current diet. ST recommends Pt work with structural iron worker in order to ensure meeting primary nutrition and hydration needs. Recommendations Recommendations Continue Current Diet Liquids Order Thin (IDDSI 0) Diet Order Regular (IDDSI 7) Medication Recommendations As Tolerated Additional Dietary Needs 1:1 Supervision,Reminders to Use Strategies Aspiration Precautions Recommended Precautions Upright at 90 Degrees, Alternate Liquids/Solids,Small Bites/Sips,Lingual Sweep, Check for Pocketing,Liquids from Cup Additional Precautions Oral care TID Treatment Plan Appropriate for Continued Therapy No Therapy Recommendations ST will continue to follow x1 to assess for s/sx of dysphagia and provide education re: compensatory strategies and aspiration precautions. Dysphagia Goals LTG1: Pt will consume safest and most efficient least restrictive diet with no clinical s/sx of aspiration or dysphagia 100% of the time in order to meet primary nutrition/hydration needs. MET STG1: Pt will tolerate prescribed diet with <5% overt s/sx of aspiration/dysphagia with use of compensatory swallowing strategies and minimal cues. MET STG2: Pt will tolerate prescribed diet with <5% oral residue with use of compensatory swallowing strategies (liquid wash, lingual sweep) and minimal cues. MET Referrals/Other Recommended Referrals Dietary Consult
[2025-02-27 12:00] VITALS: BP 114/77; PULSE 92; RESP 16; TEMP 36.6; O2SAT 94
--- NOTE | 2025-02-27 13:33 | OT.IP.TRT ---
Current Diagnoses Pneumonia, unspecified organism (02/20/25) Arthropathic psoriasis, unspecified (02/20/25) Rheumatoid arthritis, unspecified (02/20/25) Occupational Therapy Treatment Note M2 OT-IP Current Condition Start: 02/23/25 14:05 Freq: Status: Active Protocol: Document 02/23/25 14:05 [facility] (Rec: 02/23/25 14:30 [facility] Desktop) Occupational Therapy Current Condition Current Condition Evaluation Date 02/23/25 Treatment Diagnosis PNA, acute respiratory failure , AMS Diagnosis Onset Date 02/20/25 M3 OT- IP Subjective and Pain Start: 02/23/25 14:05 Freq: Status: Active Protocol: Document 02/27/25 13:34 [facility] (Rec: 02/27/25 13:42 [facility] Desktop) OT- Subjective Occupational Therapy Visit Type Type Treatment Note Visit Start Time 13:16 Visit Stop Time 13:33 Notes co-treat with P.T. OT Pain Assessment Pain When Pain Assessed During Mobility Location Right Ribs Scale Used unable to state Pain Behaviors Facial Grimacing,Guarding, Moaning M4 OT- IP ADL's Start: 02/23/25 14:05 Freq: Status: Active Protocol: Document 02/27/25 13:34 [facility] (Rec: 02/27/25 13:42 [facility] Desktop) OT [id number] Comments OT Self-Feeding Comments not meal time OT ADL-Grooming General Evaluation Grooming Ability Total Assistance Areas Needing Assistance Combing/Brushing Hair Comments OT Grooming Comments seated EOB OT ADL-Oral Care Comments Oral Care Comments not performed OT ADL-Dressing Comments OT Dressing Comments not performed OT ADL-Toileting General Evaluation Toileting Ability Total Assistance Comments OT Toileting Comments [place] OT ADL-Bathing Comments OT Bathing Comments not performed M5 OT- IP IADL's Start: 02/23/25 14:05 Freq: Status: Active Protocol: Document 02/23/25 14:05 [facility] (Rec: 02/23/25 14:30 [facility] Desktop) OT-Instrumental Activities of Daily Living Medication Management Medication Management Caregiver Administers Money Management Money Management Caregiver Provides Assistance Meal Preparation Meal Preparation Caregiver Provides Assist Car Body Designer Car Body Designer Caregiver Provides Assist M6 OT- IP Functional Cognition Start: 02/23/25 14:05 Freq: Status: Active Protocol: Document 02/24/25 12:29 [facility] (Rec: 02/24/25 12:39 [facility] Desktop) Cognitive Factors Limiting Selfcare Function Cognitive Comments Cognitive Assessment Comments Pt able to respond a little faster today , but still needing increased time and cues to move. To try SLUMS next OT session. M7 OT- IP Mobility and Balance Start: 02/23/25 14:05 Freq: Status: Active Protocol: Document 02/27/25 13:34 [facility] (Rec: 02/27/25 13:42 [facility] Desktop) OT- Bed Mobility Assessment Supine to Sit Supine to Sit Assist Total Assistance,1 Person Assistance,Head of Bed Elevated,Bedrails Sit to Supine Sit to Supine Assist Total Assistance,2 Person Assistance,Head of Bed Elevated,Bedrails Scooting Scooting to Edge of Bed Total Assistance,1 Person Assistance Scooting Up and Down in Bed Total Assistance,2 Person Assistance OT-Transfer Assessment Comments Mobility Comments did not occur OT- Gait Assessment Comments Gait Ability Comments did not occur OT- Balance Assessment Sitting Balance and Reactions Static Sitting Balance Ability Poor Comments Other Balance Tests/Deviations/Treatment CGA to dep for sitting balance : M8 OT- IP Objective Assessments Start: 02/23/25 14:05 Freq: Status: Active Protocol: Document 02/23/25 14:05 [facility] (Rec: 02/23/25 14:30 [facility] Desktop) OT Gross Range of Motion Upper Extremity Range of Motion Assessment Within Functional Limits OT Strength Upper Extremity Strength Assessment Bilaterally Impaired M9 OT- IP Assessment and Plan Start: 02/23/25 14:05 Freq: Status: Active Protocol: Document 02/27/25 13:34 [facility] (Rec: 02/27/25 13:42 [facility] Desktop) OT Summary Assessment and Plan Potential Rehabilitation Potential Fair Analytic Complexity at Evaluation Moderate Summary OT Impairments Pain,Strength,Balance, Functional Cognition, Functional Mobility,Self- Feeding,Grooming,Dressing, Toileting,Bathing,Toilet Transfers,Shower Transfers, Activity Tolerance Progress Towards Goals Slow Progress due to Pain,Slow Progress due to Medical Issues,Slow Progress due to Activity Tolerance,Slow Progress due to Cognition Assessment Summary Pt agreeable to therapy services on this date but was minimally participatory with mobility possibly d/t confusion vs generalized weakness. Pt was able to maintain sitting balance with CGA for short amounts of time. Pt may be benefit from SNF as it appears pt was more able at home. Goals Self-Feeding Goal Standby Assistance Grooming Goal Standby Assistance Dressing Goal Moderate Assistance Toileting Goal Minimal Assistance Bathing Goal Moderate Assistance Toilet Transfer Goal Moderate Assistance Shower Transfer Goal Moderate Assistance Days to Meet Goals 30 Frequency of Treatment Other frequency 5x/week Treatment Plan OT Treatment Plan ADL Training,Functional Cognition Training,Functional Mobility,Patient/Family Education,Discharge Planning Other Treatment Recommendations and Next SLUMS Treatment Focus Discharge Recommendations OT Discharge Recommendations SNF Rehab,LTAC Transportation Needs at Discharge Stretcher/Ambulance
--- NOTE | 2025-02-27 13:40 | PT.IPTN ---
Current Diagnoses Pneumonia, unspecified organism (02/20/25) Arthropathic psoriasis, unspecified (02/20/25) Rheumatoid arthritis, unspecified (02/20/25) Physical Therapy Treatment Note M2 PT-IP Current Condition Start: 02/23/25 11:44 Freq: NEEDED Status: Active Protocol: Document 02/23/25 11:15 DLM (Rec: 02/23/25 12:28 DLM Desktop) Physical Therapy Current Condition Current Condition Evaluation Date 02/23/25 Treatment Diagnosis PNA, weakness and impaired gait Onset Date 02/20/25 M3 PT-IP Subjective Start: 02/23/25 11:44 Freq: NEEDED Status: Active Protocol: Document 02/27/25 13:16 MB (Rec: 02/27/25 13:40 MB Desktop) Subjective Physical Therapy Visit Type Type Treatment Note Visit Start Time 13:16 Visit Stop Time 13:33 Number of CLINICAL LABORATORY SERVICE TEACHER Visits 0 Physical Therapy Visit Comments Patient Comments Pt with confusion and lethargy , agreeable to therapy. Therapy Pain Assessment Location Back Scale Used Unable to rate M4 PT-IP Mobility and Gait Start: 02/23/25 11:44 Freq: NEEDED Status: Active Protocol: Document 02/27/25 13:16 MB (Rec: 02/27/25 13:40 MB Desktop) PT-Bed Mobility Assessment Rolling Type of Rolling Bilateral Level of Assist Maximal Assistance,1 Person Assistance Supine to Sit Supine to Sit Maximum Assistance,1 Person Assistance,Head of Bed Elevated,Bedrails Sit to Supine Sit to Supine Total Assistance,1 Person Assistance Scooting Scooting to Edge of Bed Dependent Scooting Up and Down in Bed Dependent PT-Transfer Assessment Comments Mobility Comments Pt makes little to no effort for log rolling to the left with bed flat. HOB raised all the way up and PT moves left leg out to EOB and then pt scoots right leg. Assistance to move right hand to bed rail at bottom of bed. CGA to total assistance to maintain static sitting balance for several minutes as OT assists with brushing hair and pt states she needs to stop/lie down. Pt leaning forward over EOB and total assist to get back to bed and to reposition on her side with pillow support and nsg to check in later. M5 PT-IP Objective Assessments Start: 02/23/25 11:44 Freq: NEEDED Status: Active Protocol: Document 02/23/25 11:15 DLM (Rec: 02/23/25 12:28 DLM Desktop) Orientation Orientation/Cognition Level of Alertness Alert Orientation Name,Age,Birthday,Month,Date, Year,Day of Week,Place, Situation Safety Awareness Understands Safety Issues Comments Her answers a lot of the questions for her Gross Range of Motion Upper Extremity ROM Assessment Within Functional Limits Lower Extremity ROM Assessment Within Functional Limits Strength Upper Extremity Strength Assessment Bilaterally Impaired Lower Extremity Strength Assessment Bilaterally Impaired Comments Strength Comments generalized weakness throughout, pt unable to tolerate manual muscle testing due to severe skin tenderness . She needs assist to lift LE' s off bed. Pt using UE's functionally to reach for bed rails and hold FWW. Coordination Assessment Gross Coordination Gross Coordination WNL Sensation Assessment Comments Sensation Comments she reports no numbness when feet touched, her skin is pink /red and dry Muscle Tone Muscle Tone WNL Yes M6 PT-IP Treatment Start: 02/23/25 11:44 Freq: NEEDED Status: Active Protocol: Document 02/27/25 13:16 MB (Rec: 02/27/25 13:40 MB Desktop) Physical Therapy Treatment Education Education Provided Safety M7 PT-IP Assessment and Plan Start: 02/23/25 11:44 Freq: NEEDED Status: Active Protocol: Document 02/27/25 13:16 MB (Rec: 02/27/25 13:40 MB Desktop) PT Summary Assessment and Plan Potential Rehabilitation Potential Fair Status of Condition at Evaluation Evolving Summary Impairments Pain,ROM,Strength,Balance, Coordination,Sensation,Tone, Cognition,Bed Mobility, Transfers,Gait,Activity Tolerance Progress Towards Goals Slow Progress due to Pain,Slow Progress due to Activity Tolerance Assessment Summary Pt does not demonstrate progress towards PT goals this or last date. Con't to monitor. She currently requires up to total assistance for bed mobility. Pt is hypoverbal with somewhat blank stare throughout PT. Goals Bed Mobility Goal Standby Assistance Transfer Goal Minimal Assistance,Front Wheeled Walker Gait Goal Minimal Assistance,Front Wheel Walker Gait Distance 20 feet Days to Meet Goals 5 Frequency of Treatment Frequency Of Treatment Once a Day Treatment Plan Physical Therapy Treatment Plan Bed Mobility Training,Transfer Training,Gait Training, Therapeutic Exercise,Balance Retraining,Discharge Planning, Hot or Cold Pack,Neuromuscular Re-ed Precautions Other Precautions Ed pt in log rolling but she cannot follow/recall, gloves on for PT treatment, fall risk , 1L O2 Recommendations To Nursing Amount of Assist Needed 2 Person Assist Discharge Recommendations PT Discharge Recommendations SNF Rehab Transportation Needs at Discharge Stretcher/Ambulance - PT assist 2
--- NOTE | 2025-02-27 14:43 | P.PN_ITS ---
Subjective Subjective Date Patient Seen: 02/27/25 Time Patient Seen: 07:55 Interval history: Patient had an uneventful weekend Much brighter this morning asking appropriate questions and inappropriately discouraged when I talked to her about her back MRI which failed to show any evidence of anything surgical or any easy fix for ongoing back and leg pain Barely up with physical therapy Off antibiotics now except for the trimethoprim sulfamethoxazole. Her specialized test ([id number]) came back positive suggesting that is more likely that she has Pneumocystis pneumonia than if it had come back negative although not definitive by any means Still requiring 1 L oxygen via nasal cannula Trying to eat more tolerating some of the supplements a little better Exam Vital Signs (past 8 hours): - 02/27/25 07:00 02/27/25 07:57 02/27/25 08:00 Temperature 98.3 F Pulse Rate 102 H Respiratory Rate 18 Blood Pressure 134/83 Pulse Oximetry 95 92 Oxygen Delivery Method Nasal Cannula Nasal Cannula Oxygen Flow Rate 2 0.5 Fraction of Inspired Oxygen 28 02/27/25 12:00 Temperature 97.9 F Pulse Rate 92 H Respiratory Rate 16 Blood Pressure 114/77 Pulse Oximetry 94 Oxygen Delivery Method Oxygen Flow Rate 1 Fraction of Inspired Oxygen Fraction of Inspired Oxygen 28 SaO2/FiO2 Ratio 339 Oxygen Delivery Method Nasal Cannula Oxygen Flow Rate 1 Objective Labs 02/27/25 05:20 02/27/25 05:20 Labs: Laboratory Results - last 24 hr 02/27/25 05:20 WBC 5.4 RBC 4.12 Hgb 14.0 Hct 41.5 MCV 100.8 H MCH 34.0 MCHC 33.7 RDW 15.5 H Plt Count 325 Neut % (Auto) 73.1 Lymph % (Auto) 17.5 L [place] % (Auto) 9.0 Eos % (Auto) 0.1 L Baso % (Auto) 0.3 Neut # (Auto) 4000 Lymph # (Auto) 1000 L [place] # (Auto) 500 Eos # (Auto) 0 Baso # (Auto) 0 Sodium 132 L Potassium 4.6 Chloride 102 Carbon Dioxide 27 BUN 16 Creatinine 0.45 L Estimated GFR > 60 BUN/Creatinine Ratio 35.6 H Glucose 126 H Calcium 9.2 Total Bilirubin 0.4 AST 43 H ALT 46 H Alkaline Phosphatase 85 Total Protein 5.9 L Albumin 3.1 L Globulin 2.8 Albumin/Globulin Ratio 1.1 [facility] Medical History Chronic headaches Peripheral edema Uncomplicated opioid dependence Psoriatic arthritis Chronic diarrhea Diverticular disease of colon Gilbert syndrome Pyloric ulcer (~02/2018) History of migraine headaches Psoriasis History of adenomatous polyp of colon (06/27/11) Rheumatoid arthritis (06/06/11) Surgical History Status post spinal surgery History of carpal tunnel repair Status post tubal ligation Family History Brother Age: 78 Hypertension High cholesterol Child Age: 60 Mental health problem Child Age: 57 MS (multiple sclerosis) Father Age: 103 Mental health problem Dementia Cardiac disease Mother Family history of colon cancer Colon cancer Cardiac disease Sister Age: 76 Hypertension High cholesterol Social History household members: spouse Smoking Status: Former smoker alcohol intake: current Assessment & Plan Assessment & Plan narrative: 1. Community-acquired pneumonia on patient on immunosuppression with methotrexate and infliximab-continue the trimethoprim sulfamethoxazole for total of 21 days which will end on the twenty-sixth of this month. More likely than not this is her infection. She was completed the other generalized antibiotic therapy. Somewhat improved specially from a mental status standpoint. 2. Acute respiratory failure with hypoxia-oxygen replacement therapy and treatment of above pneumonia. May be slightly improved. No change in therapy continue to wean oxygen as able 3. Altered mental status/acute cognitive dysfunction-as of this morning I think she was back to baseline. 4. Rheumatoid and psoriatic arthritis-I placed patient on prednisone in an effort to try and more quickly resolve any active autoimmune disease. No dramatic improvement on the prednisone so far. 5. Swallow-continue speech therapy evaluation. Fortunately no dramatic swallow issues identified so far 6. Nutrition-patient clearly nutritionally challenge with a BMI 17. Formal nutritional consult has been placed. Work on this in combination with her speech therapy as above. She was tolerating some of the supplements better than others 7. UTI-patient grew pansensitive E coli from her urine. Likely completely treated now with antibiotic therapy 8. Back pain-MRI done last week did not show evidence of any change from study done in 2022 after her surgery. No clear explanation for her symptoms no obvious surgical intervention inappropriate at this time. I will reach out to her back surgeon at [facility] have him look at the images himself but it seems like that has not a whole lot to be done here unfortunately 9. Disposition-patient clearly needs chcf placement. She needs better nutrition which may help her to heal with her back faster she needs skilled therapies she was does need continued treatment with oral antibiotic for her presumed Pneumocystis pneumonia. Unfortunately chcf placement will likely interfere with her Remicade infusions but I do not believe there is any other reasonable option at this time Patient is medically ready for discharge when accepting facility can be found. Time-Based Coding :: [TOTAL MINUTES] spent with patient and on the chart (including review of chart, obtaining history, exam, reviewing outside data, placing orders, documenting exam and treatment plan, and counseling patient) on [DATE]. PROFEE Card Hanger Document charge(s): Yes Charge Codes Subsequent inpatient/observation care: [id number]
--- NOTE | 2025-02-27 15:21 | CM.DPNOTE ---
DCP Cont Reviewed chart. Patient discussed in multidisciplinary rounds. Patient is medically ready for discharge to SNF. Placed call to [facility]; Cammie in admissions is not feeling well, spoke with multiple staff members who referred to Cammie. Spoke with Cammie this afternoon- patient can admit tomorrow 02/28. COVID swab needs to be updated. Order in. Updated provider and patient/sp. Patient needs BLS w/O2. Placed call to [facility] who arranged BLS transport for 02/28 at 1100 order picker. Placed the BLS medical necessity form and blank POLST in patient's red chart for DR Dobbins to complete/sign. Plan: Discharge to SNF 02/28 via BLS at 1100. CM team following closely for coordination of DCP. BREEZY
[2025-02-27 16:00] VITALS: BP 121/83; PULSE 98; RESP 18; TEMP 36.6; O2SAT 95
[2025-02-27 17:07] LABS: COVID19 -Nasal RAPID Negative (Negative)
[2025-02-27 20:00] VITALS: BP 130/70; PULSE 82; RESP 17; TEMP 36.4; O2SAT 97
[2025-02-27] MEDS: BACLOFEN 10 MG TABLET 5 MG PO (20:19)
[2025-02-27] MEDS: GABAPENTIN 300 MG CAPSULE PO (20:19)
[2025-02-28] VITALS: BP 134/81; PULSE 77; RESP 18; TEMP 36.2; O2SAT 98
[2025-02-28] MEDS: HYDROCODONE/ACET 5/325 TABLET 1 TAB PO ×2 (02:00→05:29)
[2025-02-28] MEDS: ACETAMINOPHEN 325 MG TABLET 650 MG PO (03:29)
[2025-02-28 04:00] VITALS: BP 119/71; PULSE 105; RESP 17; TEMP 36.7; O2SAT 99
[2025-02-28] MEDS: PANTOPRAZOLE DR 40 MG TABLET PO (05:27)
[2025-02-28 08:00] VITALS: BP 127/93; PULSE 89; RESP 17; TEMP 36.3; O2SAT 98
[2025-02-28] MEDS: PROGESTERONE, MICRONIZED 100 MG CAPSULE PO (08:27)
[2025-02-28] MEDS: FOLIC ACID 1 MG TABLET PO (08:27)
[2025-02-28] MEDS: predniSONE 20 MG TABLET 40 MG PO (08:27)
[2025-02-28] MEDS: SENNOSIDES 8.6 MG TABLET PO (08:27)
[2025-02-28] MEDS: CHOLECALCIFEROL (VITAMIN D3) 1,000 UNIT TABLET 2000 UNIT PO (08:27)
--- NOTE | 2025-02-28 08:27 | CM.DPC ---
DCP Cont. Reviewed EMR and team rounds for status updates. Pt has been medically cleared for d/c today to [facility]. BLS will transport at 11:00am. D/c order, scripts, PASSAR will be faxed prior to her departure. Called pt's spouse to update. No further CM d/c assistance/coordination needs are indicated at this time.
[2025-02-28] MEDS: CYANOCOBALAMIN (VITAMIN B-12) 500 MCG TABLET PO (08:28)
[2025-02-28] MEDS: FERROUS SULFATE 325 MG TABLET PO (08:28)
[2025-02-28] MEDS: TRIMETH/SULFA 160/800 (DS) TABLET 1 TAB PO (08:28)
[2025-02-28] MEDS: ENOXAPARIN 40 MG/0.4 ML SYRINGE SUBCUT (08:28)
[2025-02-28] MEDS: SODIUM CHLORIDE 0.9% FLUSH 10 ML IV (08:29)
--- NOTE | 2025-02-28 12:21 | PC.NURSE ---
IV removed. Report given to Toi at [facility]. No further questions.
== END 2025-02-28 11:10 | DRG 193 ==
LOC: ED 14:29 → AC 19:36
PROVIDERS: Family Medicine; Admitting Provider Family Medicine; Emergency Provider Emergency Medicine; PCP Internal Medicine; Referring Provider Emergency Medicine; Visit Provider Internal Medicine
DX: J18.9 Pneumonia, unspecified organism (principal); E43 Unspecified severe protein-calorie malnutrition; G93.41 Metabolic encephalopathy; J96.01 Acute respiratory failure with hypoxia; D84.821 Immunodeficiency due to drugs; N30.00 Acute cystitis without hematuria; Z68.1 Body mass index [BMI] 19.9 or less, adult; M06.9 Rheumatoid arthritis, unspecified; L40.50 Arthropathic psoriasis, unspecified; B96.20 Unspecified Escherichia coli [E. coli] as the cause of diseases classified elsewhere; M54.9 Dorsalgia, unspecified; G89.29 Other chronic pain; G44.89 Other headache syndrome; B59 Pneumocystosis; Z98.890 Other specified postprocedural states; Z66 Do not resuscitate; Z87.891 Personal history of nicotine dependence; Z79.620 Long term (current) use of immunosuppressive biologic; Z79.631 Long term (current) use of antimetabolite agent
CPT/HCPCS: 0241U; 36415; 70450; 71045; 71275; 72148; 80048; 80053; 80305; 80320; 81003; 81015; 82550; 82962; 83605; 83880; 84145; 84484; 85025; 87040; 87077; 87086; 87186; 87635; 92526; 92610; 93005; 93010; 94760; 96365; 96366; 96367; 97163; 97166; 97530; 97535; 99223; 99232; 99233; 99239; 99284; J0696; J1650; Q9967

== ENCOUNTER 2025-03-06 13:08 | Inpatient (IN) | payer MEDICARE, OTHER, SELFPAY ==
[2025-02-20 20:11] VITALS: BMI 17.8
[2025-03-06] VITALS (7 sets, daily range): BP systolic 102–135; BP diastolic 61–84; PULSE 82–101; RESP 13–24; TEMP 35.8–36.8; O2SAT 94–99; BMI 18.1
--- NOTE | 2025-03-06 13:45 | DI.RAD.S_ITS ---
PROCEDURE: XR CHEST 1V INDICATIONS: Chest Pain TECHNIQUE: One view of the chest was acquired. COMPARISON: [facility], CR, XR CHEST 1V, 02/20/2025, 13:46. [facility], CR, XR CHEST 2V, 11/01/2024, 14:50. FINDINGS: Surgical changes and devices: None. Lungs and pleura: Blunted appearance of the right costophrenic angle. The lungs are otherwise clear. Mediastinum: Mediastinal contours appear normal. Heart size is normal. Bones and chest wall: No suspicious bony lesions. Overlying soft tissues appear unremarkable. IMPRESSION: Blunted appearance of the right costophrenic angle, may represent small effusion, atelectasis or consolidation. The lungs otherwise appear clear. Dictated by: Renzo Parks M.D. on 03/06/2025 at 14:55 Approved by: Renzo Parks M.D. on 03/06/2025 at 14:55
--- NOTE | 2025-03-06 13:45 | EKG_ITS ---
[address] [address] Test Date: 2025-03-06 Pat Name: Kelsie Hassan Department: Room: Gender: Female Boxer Operator: CORTNEY : 1945 Requested By: Order Number: [id number] Reading MD: Siddhartha Serrano Measurements Intervals [place] Rate: 98 P: 18 [place]: 144 QRS: -89 QRSD: 104 T: 34 QT: 352 QTc: 449 Interpretive Statements Sinus rhythm with premature atrial complexes Left axis deviation Incomplete right bundle branch block Inferior infarct , age undetermined Electronically Signed On 03-08-2025 16:19:20 PDT by Siddhartha Serrano
[2025-03-06 14:12] LABS: Add Manual Diff / Slide Review NO; Basophils Absolute Auto 100 /uL (0-100); Eosinophils Absolute Auto 100 /uL (0-450); Eosinophils Percent Auto 1.5 % (2-4); Hematocrit 42.5 % (36-46); Hemoglobin 14.2 g/dL (12.0-16.0); Lymphocytes Absolute Auto 1700 /uL (1100-4500); Lymphocytes Percent Auto 17.6 % (25-40); Mean Corpuscular HGB Conc 33.3 % (30-36); Mean Corpuscular Hemoglobin 33.6 PG (26-34); Mean Corpuscular Volume 100.8 fL (80-100); Monocytes Absolute Auto 600 /uL (0-900); Monocytes Percent Auto 5.9 % (3-14); Neutrophils Absolute Auto 7300 /uL (1500-7000); Platelet Count 376 X10^3/uL (150-400); Red Blood Cell Count 4.21 X10^6/uL (4.0-5.2); Red Cell Distribution Width 14.7 % (11.6-14.8); White Blood Cell Count 9.8 X10^3/uL (4.5-11.0)
[2025-03-06 14:26] LABS: Alanine Aminotransferase 61 IU/L (<35); Albumin 3.8 g/dL (3.5-5.0); Albumin Globulin Ratio 1.3 (1.0-2.8); Alkaline Phosphatase 88 U/L (38-126); Aspartate Aminotransferase 40 IU/L (14-36); BUN Creatinine Ratio 38.7 (6-22); Bilirubin Total 0.9 mg/dL (0.2-1.3); Blood Urea Nitrogen 43 mg/dL (7-17); Calcium 10.6 mg/dL (8.4-10.2); Carbon Dioxide 26 mmol/L (22-32); Chloride 101 mmol/L (98-107); Creatine Kinase < 20 U/L (30-135); Estimated Glomerular Filt Rate 51 mL/min (>60); Glucose 144 mg/dL (70-99); HEMOLYSIS < 15 (0-50); Lipase 279 U/L (23-300); Potassium 4.1 mmol/L (3.4-5.1); Sodium 132 mmol/L (137-145); Total Protein 6.8 g/dL (6.3-8.2)
--- NOTE | 2025-03-06 14:34 | PC.NURSE ---
Pt arrived to ED today because has concerns of worsening UTI. States that pt normally is able to converse and alert at baseline. Pt arrives confused but responsive. Straight cath & brief change performed. 300cc clear dark maggie urine sent to lab. Barrier cream and mepilex sacrum dressing applied to stage 2 pressure ulcer on coccyx. Pt repositioned to left side.
--- NOTE | 2025-03-06 14:36 | CM.DANOTE ---
Addendum entered by ROMULO Soares 03/06/25 14:51: DCP Updated: ED GEAR KEEPER spoke with [facility]missions, notified that pt is seen in the ED at this time. Per reviewed [facility] notes, pt declined [facility] a few days ago and is now endorsing high levels of pain where she is not able to work with PT at Rehab facility. ED GEAR KEEPER [facility] connect for more information of pt status; Admissions kindly relaying message. LUCIO Liu Original Note: ED GEAR KEEPER DCP Assessment Note: Pt is a 79yo female, resident of [place], is seen in the ED for failure to thrive and a hospice consult. Medical work up to continue in the ED for final recommendations. Pt lives in a house with her , she presented today from [facility]. Pt's Primary Care Provider is Dr. Ilir Dobbins and insurance is Medicare and [employer]. Reviewed chart and discussed with multidisciplinary team pt's medical status and initial discharge needs. ED GEAR KEEPER met w/patient at bedside; introduced self and role. Patient was found in bed, alert and oriented, cooperative with assessment. Pt confirmed living situation and good support in . Pt and spouse expressed preference in discharge home with home health. Pt and spouse acknowledge that pt has a DNR but does not feel hospice is appropriate at this time; would like to return home and rehabilitate with home health services if available. No preference for agency identified. Plan: Medical work up continues, anticipating ultimate discharge home with home health. CM team will follow closely for coordination of discharge plans. LUCIO Liu Discharge Planning/Care Management CM Discharge Assessment Start: 03/06/25 14:32 Freq: Status: Active Protocol: Document 03/06/25 14:32 MW (Rec: 03/06/25 14:35 MW [id number]) Discharge Planning Assessment Assigned Hydrometeorological Technician ROMULO Park DPOA/Assigned Designee Name Simba Spouse Contact Information [phone] Advance Directives? Yes Advance Directives on File No History Provided By Patient,Family Member,Medical Record Has Patient been admitted in last 30 Yes days? Comment 02/20/25-02/28/25 -- Patient was discharged to [facility]. Prior Living Arrangements Skilled Nurse Facility Comment [facility] since 02/28/25 . Lives in [place] with spouse. Household Members spouse Type of transporation used prior to Drives own vehicle admit Independent with ADL's Yes Is patient alert and oriented? Yes Caregiver for Another No Patient/Family Preference Home with Home Health Barriers to Discharge No Transportation Arrangement Spouse able to provide transport Referrals Initiated Home Health If patient plan is home with home health Yes : Has signed face to face form been completed? Whiteboard Updated in Patient Room with Yes name and ext. # of Hydrometeorological Technician Comment [phone] Review Status In Process Please Provide Date Initial DC 03/06/25 Assessment Was Performed Next Review Type Continued Stay Review
[2025-03-06 14:40] LABS: Troponin I 0.205 ng/mL (0.01-0.034)
[2025-03-06] MEDS: SODIUM CHLORIDE 0.9% 1,000 ML 1000 ML IV (15:30)
--- NOTE | 2025-03-06 15:45 | ED_ITS ---
HPI - Recheck/Abnormal Lab/Rx General Chief Complaint: Recheck/Abnormal Lab/Rx Stated Complaint: Failure to thrive Time Seen by Provider: 03/06/25 14:27 Mode of arrival: EMS History of Present Illness HPI narrative: this is a 71-year-old female brought to the emergency department for failure to thrive. The patient is not providing much in the way of history of present. Her is able to provide some additional history. he says that she was admitted to [facility] on discharge from here. She was doing well but today he notes that she is sleeping difficult to arouse and also had a tender abdomen. She has no history of heart problems in the past. He has not been complaining of abdominal pain or having vomiting. Patient has a DNR but believes she would like full care short of that. She was hospitalized earlier this month with a discharge on the . Hospitalized with community-acquired pneumonia and acute encephalopathy at that time had an elevated troponin at 0.079 2.06. No history of coronary disease was felt to be demand related and not pursued further. I read the discharge summary from February 27February. Related Data Home Medications Medication Instructions Recorded Confirmed ferrous sulfate 325 mg (65 mg 325 mg PO DAILY 11/12/18 02/22/25 iron) tablet calcium carbonate (Calcium 600) 1,200 mg PO DAILY 09/19/19 02/22/25 cholecalciferol (vitamin D3) 25 2,000 unit PO DAILY 09/19/19 02/22/25 mcg (1,000 unit) capsule Vitamin B12 1,000 mg PO DAILY 02/18/21 02/22/25 methotrexate sodium 2.5 mg tablet 7.5 mg PO QWEEK 02/18/21 02/22/25 folic acid 1 mg tablet 1 mg PO DAILY 08/19/21 02/22/25 infliximab 100 mg intravenous 100 mg IV [id number] 12/15/23 02/22/25 solution (Remicade) baclofen 5 mg tablet 5 mg PO BEDTIME 02/20/25 02/20/25 gabapentin 300 mg capsule 600 mg PO QPM 02/22/25 02/22/25 Previous Rx's Medication Instructions Recorded lidocaine 4 % topical patch 1 patch topical DAILY PRN pain #15 11/03/21 ea azelastine 205.5 mcg (0.15 %) 2 spray intranasal BID #30 mL 05/26/23 nasal spray Disabled Parking #1 ea 01/14/24 sumatriptan succinate 50 mg tablet See Rx Instructions PO .COMPLEX 04/11/24 #72 tabs meloxicam 7.5 mg tablet 7.5 mg PO DAILY #30 tabs 05/16/24 estradiol 0.05 mg/24 hr weekly 1 patch topical QWEEK #12 ea 11/07/24 transdermal patch pantoprazole 40 mg tablet,delayed 40 mg PO DAILY #90 tabs 02/16/25 release hydrochlorothiazide 25 mg tablet 25 mg PO DAILY #90 tabs 02/23/25 progesterone micronized 100 mg 100 mg PO DAILY #90 caps 02/23/25 capsule hydrocodone 10 mg-acetaminophen 1 - 2 tab PO Q4-6H PRN pain #30 02/27/25 325 mg tablet tabs prednisone 20 mg tablet 40 mg (2 x 20 mg) PO DAILY #30 tabs 02/27/25 sulfamethoxazole 800 1 tab PO BID 2 weeks #28 tabs 02/27/25 mg-trimethoprim 160 mg tablet Allergies Allergy/AdvReac Type Severity Reaction Status Date / Time Penicillins Allergy Severe Swelling Verified 03/06/25 13:17 of Lip/Tongue/Throat codeine AdvReac Mild H/A Verified 03/06/25 13:17 Patient History Medical History Chronic headaches Peripheral edema Uncomplicated opioid dependence Psoriatic arthritis Chronic diarrhea Diverticular disease of colon Gilbert syndrome Pyloric ulcer (~02/2018) History of migraine headaches Psoriasis History of adenomatous polyp of colon (06/27/11) Rheumatoid arthritis (06/06/11) Surgical History Status post spinal surgery History of carpal tunnel repair Status post tubal ligation Family History Brother Age: 78 Hypertension High cholesterol Child Age: 60 Mental health problem Child Age: 57 MS (multiple sclerosis) Father Age: 103 Mental health problem Dementia Cardiac disease Mother Family history of colon cancer Colon cancer Cardiac disease Sister Age: 76 Hypertension High cholesterol Social History household members: spouse alcohol intake: current alcohol intake frequency: 0-2 drinks per day Alcohol type: wine Exam Narrative Exam Narrative: Alert female who is alert and confused does not appear to be in any acute distress Initial Vital Signs Initial Vital Signs: Vital Signs Temperature 98.3 F 03/06/25 13:05 Pulse Rate 95 H 03/06/25 13:05 Respiratory Rate 13 03/06/25 13:05 Blood Pressure 115/84 03/06/25 13:05 Pulse Oximetry 97 03/06/25 13:05 Oxygen Delivery Method Nasal Cannula 03/06/25 13:05 Oxygen Flow Rate 2 03/06/25 13:05 vital signs are reviewed an HENIN HENIN Other: normocephalic and atraumatic Resp Other: normal respiratory effort lungs are clear Cardio Other: regular rhythm rate no murmur rub or gallop GI Other: bowel sounds present, abdomen is exquisitely tender with diffuse guar Skin Other: warm and dry Neuro Other: no focal deficit, confused. Course Orders Ordered: ED Orders 03/06/25 13:21 Consult to DELIVERY ASSOCIATE - [employer] Second Operator Stat 03/06/25 13:45 XR chest 1V Stat EKG-12 Lead Stat 03/06/25 13:55 Complete Blood Count AUTO DIFF Stat Comprehensive Metabolic Panel Stat Lipase Stat Troponin & CK Cardiac Panel Stat 03/06/25 15:44 CT abdomen pelvis w con Stat 03/06/25 15:55 CT head/brain w con Stat 03/06/25 16:03 Trop I [Troponin I] Stat Discontinued Medications Aspirin (Aspirin 81 Mg Chew Tab) 324 mg PO NOW ONE Stop: 03/06/25 13:46 Last Admin: 03/06/25 13:54 Dose: Not Given Documented By: CASE Sodium Chloride (Normal Saline 0.9%) 1,000 mls @ 1,000 mls/hr IV BOLUS ONE Stop: 03/06/25 16:19 Last Infusion: 03/06/25 16:31 Dose: Infused Documented By: Admin: 03/06/25 15:30 Dose: 1,000 mls/hr Documented By: RORY Consultations Consultation #1: Case discussed with Dr. Evans, general surgery will consult general surgery, will consult. Consultation #2: Dr. Dobbins, primary care provider will admit Vital Signs Vital signs: Vital Signs - 8 hr 03/06/25 13:05 03/06/25 13:30 03/06/25 13:30 Temperature 98.3 F Pulse Rate 95 H 94 H Respiratory Rate 13 Blood Pressure 115/84 119/82 Pulse Oximetry 97 98 Oxygen Delivery Method Nasal Cannula Nasal Cannula Oxygen Flow Rate 2 3 03/06/25 14:00 03/06/25 15:35 03/06/25 17:52 Temperature Pulse Rate 100 H 82 86 Respiratory Rate 17 16 24 Blood Pressure 135/76 135/76 Pulse Oximetry 99 99 96 Oxygen Delivery Method Nasal Cannula Nasal Cannula Oxygen Flow Rate 3 2 MDM - Recheck/Abnormal Lab/Rx Lab Data Lab results narrative: no leukocytosis, CMP Shows a mild acute kidney injury. Initial troponin is elevated, repeat troponin is downtrending. 03/06/25 13:55 03/06/25 13:55 Labs: Lab Results 03/06/25 03/06/25 Range/Units 13:55 16:03 WBC 9.8 (4.5-11.0) X10^3/uL RBC 4.21 (4.0-5.2) X10^6/uL Hgb 14.2 (12.0-16.0) g/dL Hct 42.5 (36-46) % MCV 100.8 H (80-100) fL MCH 33.6 (26-34) PG MCHC 33.3 (30-36) % RDW 14.7 (11.6-14.8) % Plt Count 376 (150-400) X10^3/uL Neut % (Auto) 74.0 (50-75) % Lymph % (Auto) 17.6 L (25-40) % [place] % (Auto) 5.9 (3-14) % Eos % (Auto) 1.5 L (2-4) % Baso % (Auto) 1.0 (0-2) % Neut # (Auto) 7300 H (4939-5015) /uL Lymph # (Auto) 1700 (6121-0272) /uL [place] # (Auto) 600 (0-900) /uL Eos # (Auto) 100 (0-450) /uL Baso # (Auto) 100 (0-100) /uL PT Cancelled INR Cancelled APTT Cancelled Sodium 132 L (137-145) mmol/L Potassium 4.1 (3.4-5.1) mmol/L Chloride 101 (98-107) mmol/L Carbon Dioxide 26 (22-32) mmol/L BUN 43 H (7-17) mg/dL Creatinine 1.11 H (0.52-1.04) mg/dL Estimated GFR 51 L (>60) mL/min BUN/Creatinine Ratio 38.7 H (6-22) Glucose 144 H (70-99) mg/dL Lactate Cancelled Calcium 10.6 H (8.4-10.2) mg/dL Magnesium Cancelled Total Bilirubin 0.9 (0.2-1.3) mg/dL AST 40 H (14-36) IU/L ALT 61 H (<35) IU/L Alkaline Phosphatase 88 (38-126) U/L Total Creatine Kinase < 20 L (30-135) U/L Troponin I 0.205 H* 0.157 H* (0.01-0.034) ng/mL NT-Pro-B Natriuret Pep Cancelled Total Protein 6.8 (6.3-8.2) g/dL Albumin 3.8 (3.5-5.0) g/dL Globulin 3.0 (1.7-4.1) g/dL Albumin/Globulin Ratio 1.3 (1.0-2.8) Lipase 279 (23-300) U/L Imaging Data CT scan - abdomen/pelvis: My Impression: independently viewed CT abdomen pelvis, evidently bowel obstruction massively distended colon with air-fluid levels. I have requested general surgery evaluation Radiologist's Impression: [address] [address] [address] Scan Report Signed Patient: Kelsie Hassan MR#: [id number] : 1945 Acct:[id number] Age/Sex: 79 / F Date of Service: 03/06/25 Loc: ED Accession Number: [id number] Procedure: CT abdomen pelvis w con Ordering Provider: Earl Rich MD PROCEDURE: CT ABDOMEN PELVIS W CON INDICATIONS: abdominal pain TECHNIQUE: After the administration of intravenous contrast, axial sections acquired from the lung bases to the pubic symphysis. Coronal and sagittal reformats were performed. For radiation dose reduction, the following was used: automated exposure control, adjustment of mA and/or kV according to patient size. COMPARISON: [facility], CT, CT CHEST ABDOMEN PELVIS WITH TRAUMA, 03/30/2024, 21:39. FINDINGS: Image quality: Diagnostic. Lower Chest: No significant findings. ABDOMEN: Liver: No solid mass. Gallbladder: No radiopaque gallstones or wall thickening. Biliary ducts: No biliary dilation. Pancreas: Development of significant pancreatic body and tail dilatation. Question possible enhancing mass in the region of the pancreatic neck measuring approximately 1.3 x 1.5 cm. Consider possible islet cell tumor. Reference coronal image 24 of series 4 and axial image 41 of series 2. Spleen: Size is within normal limits. Adrenal Glands: No adrenal nodules. Kidneys and Ureters: No hydronephrosis. No solid mass. No complex renal cystic lesion which requires follow up. Stomach and Bowel: Question possible serosal implant disease on the distal rectum resulting in rectal dilatation. Question possible proximal transverse colon serosal lesion--axial image 42 of series 2-- resulting in dilatation of the transverse colon and marked dilatation of the ascending colon and cecum. The ascending colon and cecum measure approximately 9.1 cm. Peritoneum: No abnormal intraperitoneal fluid. No free air. Ventral Wall: No significant ventral hernia. Abdominal Nodes: No retroperitoneal or mesenteric adenopathy by size criteria. Vessels: Aorta and inferior vena cava are normal in size. PELVIS: Pelvic Organs: Marked interval progression of likely bilateral malignant ovarian uses is neoplasms. These have significant soft tissue components. A complex right adnexal mass measures approximately 7.6 x 8.2 x 6.2 cm. Reference coronal image 21 of series 4 and axial image 109 of series 2. A left adnexal complex cystic and solid mass was previously not identifiable. It measures approximately 5.9 x 4.0 x 4.6 cm. Reference coronal image 33 of series 4 and axial image 112 of series 2. There is subjacent ascites. At the time of the previous study, there was only a right adnexal cystic lesion measuring 2.4 x 4.0 x 3.7 cm. Bladder: No bladder wall thickening, accounting for underdistention. Pelvic Nodes: No enlarged lymph nodes. Miscellaneous: No inguinal hernias are seen. Impressive edema of the vulva. This was not previously present. Bones: No aggressive osseous abnormality. Lumbar decompressive laminectomy and posterior lateral fusion hardware noted. No compression fractures. IMPRESSION: 1. Marked interval progression of a presumed bilateral ovarian malignancy, right greater than left, left-sided findings not previously identifiable. 2. Question distal rectal serosal implant disease resulting in a degree of rectal obstruction. 3. Question serosal implant on the proximal descending colon. 4. Significant dilatation of the right colon and cecum, potentially representing sequelae of resultant obstruction. Alternatively, this may potentially represent colonic ileus. 5. Suspect malignant obstruction of the pancreatic duct. Consider islet cell tumor or implant disease. Comment: Nonemergent multiphase pancreas protocol MRI may potentially be helpful. Additionally, MR abdomen with and without contrast may potentially evaluate the distal rectum and proximal descending colon. Dictated by: Angel Tejada M.D. on 03/06/2025 at 16:19 Approved by: Angel Tejada M.D. on 03/06/2025 at 16:39 CT scan - head: My Impression: independently reviewed CT head, no acute finding Radiologist's Impression: no acute per Radiology ECG Data Interpretation: normal sinus rhythm without acute ischemic change MDM Narrative Medical decision making narrative: 79-year-old female presenting with confusion and decreased mental status. On examination she is noted to have a tender abdomen. Imaging reveals distended colon which is thought by surgery to represent pseudo obstruction as well as evidence of pancreatic duct obstruction and metastatic ovarian cancer. Patient has an elevated troponin today, she is not having chest pain she does not have ischemic EKG changes and troponin downtrending with hydration. I do not think that this warrants any urgent workup or treatment at this point is likely demand related. Patient will be admitted to her primary care service with surgery consulting Discharge Plan Departure Patient Disposition: Admitted As Inpatient Admit Date/Time: 03/06/25 18:39 Admit Provider: Ilir Dobbins
--- NOTE | 2025-03-06 15:55 | DI.CT.S_ITS ---
PROCEDURE: CT HEAD/BRAIN W CON INDICATIONS: altered mental status TECHNIQUE: 4.5 mm thick angled axial sections acquired from the foramen magnum to the vertex after the administration of intravenous contrast, with coronal and sagittal reformats. For radiation dose reduction, the following was used: automated exposure control, adjustment of mA and/or kV according to patient size. COMPARISON: None. FINDINGS: Image quality: Excellent. CSF Spaces: Basal cisterns are patent. No extra-axial fluid collections. Ventricles are normal in size and shape. Brain: No midline shift. No intracranial bleeds or masses. No abnormal intracranial enhancement. Lara-white interface appears normal. Intracranial carotid calcifications. Age-related volume loss and moderate small vessel ischemic change. Skull and face: Calvarium and visualized facial bones appear intact, without suspicious lesions. Sinuses: Visualized sinuses and mastoids are clear. IMPRESSION: 1. No acute intracranial process. 2. Age-related volume loss and moderate small vessel ischemic change. Dictated by: Angel Tejada M.D. on 03/06/2025 at 16:42 Approved by: Angel Tejada M.D. on 03/06/2025 at 16:43
--- NOTE | 2025-03-06 16:33 | PC.NURSE ---
Pt more alert and answering questions. Responding appropriately to questions and following commands.
[2025-03-06 16:39] LABS: Troponin I 0.157 ng/mL (0.01-0.034)
--- NOTE | 2025-03-06 17:21 | PM.CN.IH.1 ---
History of Present Illness Consult details Date Patient Seen: 03/06/25 Time Patient Seen: 17:21 Chief complaint: Failure to thrive Reason for consult: Dilated colon on CT Narrative: Kelsie Hassan is a 79-year-old woman who [facility] because of somnolence and abdominal pain. She was recovering there following a pneumonia. According to her she has been declining and general since she fell down some stairs about a year ago. In our ER here she had a CT scan which shows a substantially dilated colon and bilateral ovarian masses. The colonic dilation extends all the way to the rectum. According to her she has been having bowel movements although she has been incontinent of stool recently. Her has been was unaware of any abnormalities involving her ovaries. According to her she has been taking hydrocodone for arthritic pain for quite some time. Meds Home Medications and Allergies Home Medications Medication Instructions Recorded Confirmed Type ferrous sulfate 325 mg (65 mg 325 mg PO DAILY 11/12/18 02/22/25 History iron) tablet calcium carbonate (Calcium 600) 1,200 mg PO DAILY 09/19/19 02/22/25 History cholecalciferol (vitamin D3) 25 2,000 unit PO DAILY 09/19/19 02/22/25 History mcg (1,000 unit) capsule Vitamin B12 1,000 mg PO DAILY 02/18/21 02/22/25 History methotrexate sodium 2.5 mg tablet 7.5 mg PO QWEEK 02/18/21 02/22/25 History folic acid 1 mg tablet 1 mg PO DAILY 08/19/21 02/22/25 History lidocaine 4 % topical patch 1 patch topical DAILY PRN pain #15 11/03/21 02/20/25 Rx ea azelastine 205.5 mcg (0.15 %) 2 spray intranasal BID #30 mL 05/26/23 02/20/25 Rx nasal spray infliximab 100 mg intravenous 100 mg IV [id number] 12/15/23 02/22/25 History solution (Remicade) Disabled Parking #1 ea 01/14/24 02/22/25 Rx sumatriptan succinate 50 mg tablet See Rx Instructions PO .COMPLEX 04/11/24 02/20/25 Rx #72 tabs meloxicam 7.5 mg tablet 7.5 mg PO DAILY #30 tabs 05/16/24 02/20/25 Rx estradiol 0.05 mg/24 hr weekly 1 patch topical QWEEK #12 ea 11/07/24 02/22/25 Rx transdermal patch pantoprazole 40 mg tablet,delayed 40 mg PO DAILY #90 tabs 02/16/25 02/22/25 Rx release baclofen 5 mg tablet 5 mg PO BEDTIME 02/20/25 02/20/25 History gabapentin 300 mg capsule 600 mg PO QPM 02/22/25 02/22/25 History hydrochlorothiazide 25 mg tablet 25 mg PO DAILY #90 tabs 02/23/25 Rx progesterone micronized 100 mg 100 mg PO DAILY #90 caps 02/23/25 Rx capsule hydrocodone 10 mg-acetaminophen 1 - 2 tab PO Q4-6H PRN pain #30 02/27/25 Rx 325 mg tablet tabs prednisone 20 mg tablet 40 mg (2 x 20 mg) PO DAILY #30 tabs 02/27/25 Rx sulfamethoxazole 800 1 tab PO BID 2 weeks #28 tabs 02/27/25 Rx mg-trimethoprim 160 mg tablet Allergies Allergy/AdvReac Type Severity Reaction Status Date / Time Penicillins Allergy Severe Swelling Verified 03/06/25 13:17 of Lip/Tongue/Throat codeine AdvReac Mild H/A Verified 03/06/25 13:17 Exam Vital Signs (past 8 hours): - 03/06/25 13:05 03/06/25 13:30 03/06/25 13:30 Temperature 98.3 F Pulse Rate 95 H 94 H Respiratory Rate 13 Blood Pressure 115/84 119/82 Pulse Oximetry 97 98 Oxygen Delivery Method Nasal Cannula Nasal Cannula Oxygen Flow Rate 2 3 03/06/25 14:00 03/06/25 15:35 Temperature Pulse Rate 100 H 82 Respiratory Rate 17 16 Blood Pressure 135/76 Pulse Oximetry 99 99 Oxygen Delivery Method Nasal Cannula Nasal Cannula Oxygen Flow Rate 3 2 Oxygen Delivery Method Nasal Cannula Oxygen Flow Rate 2 Narrative Exam Narrative: Somnolent Abdomen is generally distended and tender to palpation in all quadrants Objective Labs 03/06/25 13:55 03/06/25 13:55 Labs: Laboratory Results - last 24 hr 03/06/25 03/06/25 13:55 16:03 WBC 9.8 RBC 4.21 Hgb 14.2 Hct 42.5 MCV 100.8 H MCH 33.6 MCHC 33.3 RDW 14.7 Plt Count 376 Neut % (Auto) 74.0 Lymph % (Auto) 17.6 L [place] % (Auto) 5.9 Eos % (Auto) 1.5 L Baso % (Auto) 1.0 Neut # (Auto) 7300 H Lymph # (Auto) 1700 [place] # (Auto) 600 Eos # (Auto) 100 Baso # (Auto) 100 PT Cancelled INR Cancelled APTT Cancelled Sodium 132 L Potassium 4.1 Chloride 101 Carbon Dioxide 26 BUN 43 H Creatinine 1.11 H Estimated GFR 51 L BUN/Creatinine Ratio 38.7 H Glucose 144 H Lactate Cancelled Calcium 10.6 H Magnesium Cancelled Total Bilirubin 0.9 AST 40 H ALT 61 H Alkaline Phosphatase 88 Total Creatine Kinase < 20 L Troponin I 0.205 H* 0.157 H* NT-Pro-B Natriuret Pep Cancelled Total Protein 6.8 Albumin 3.8 Globulin 3.0 Albumin/Globulin Ratio 1.3 Lipase 279 PFSH Medical History Chronic headaches Peripheral edema Uncomplicated opioid dependence Psoriatic arthritis Chronic diarrhea Diverticular disease of colon Gilbert syndrome Pyloric ulcer (~02/2018) History of migraine headaches Psoriasis History of adenomatous polyp of colon (06/27/11) Rheumatoid arthritis (06/06/11) Surgical History Status post spinal surgery History of carpal tunnel repair Status post tubal ligation Family History Brother Age: 78 Hypertension High cholesterol Child Age: 60 Mental health problem Child Age: 57 MS (multiple sclerosis) Father Age: 103 Mental health problem Dementia Cardiac disease Mother Family history of colon cancer Colon cancer Cardiac disease Sister Age: 76 Hypertension High cholesterol Social History household members: spouse Tobacco & Substance Use alcohol intake: current Assessment & Plan Assessment and plan (1) Acute pseudo-obstruction of colon: Status: Acute Plan I suspect she has acute colonic pseudo-obstruction which may be secondary to her prolonged recovery at a custodial or possible ovarian malignancy or both. For acute colonic pseudo-obstruction I recommend admission for IV hydration and monitoring. Since the largest diameter portion of her cecum is less than 12 cm there was no indication for intervention. She should avoid opiates, calcium channel blockers and anticholinergics were possible. It seems doubtful that she would be a candidate for any sort of curative oncological therapy given her baseline health status. Time-Based Coding :: [TOTAL MINUTES] spent with patient and on the chart (including review of chart, obtaining history, exam, reviewing outside data, placing orders, documenting exam and treatment plan, and counseling patient) on [DATE]. PROFEE Charge Codes Inpatient or Observation consultation: [id number]
--- NOTE | 2025-03-06 19:11 | PC.ADMIT ---
[address] Admission Note: Pt A&O to self, , and vague situation. VS WDL, incont BM soft brown. The patient,Kelsie Hassan,79 y/o, was given written information regarding hospital policies, unit procedures and contact persons. Patient's smoking status: . Vital Signs - 8 hr 03/06/25 13:05 03/06/25 13:30 03/06/25 13:30 Temperature 98.3 F Pulse Rate 95 H 94 H Respiratory Rate 13 Blood Pressure 115/84 119/82 Pulse Oximetry 97 98 Oxygen Delivery Method Nasal Cannula Nasal Cannula Oxygen Flow Rate 2 3 03/06/25 14:00 03/06/25 15:35 03/06/25 17:52 Temperature Pulse Rate 100 H 82 86 Respiratory Rate 17 16 24 Blood Pressure 135/76 135/76 Pulse Oximetry 99 99 96 Oxygen Delivery Method Nasal Cannula Nasal Cannula Oxygen Flow Rate 3 2
[2025-03-06] MEDS: DEXTROSE 5%-0.9% NS 1,000 ML 100 ML IV (20:05)
--- NOTE | 2025-03-07 01:38 | PC.WOUNDPHOT ---
PHOTOS TAKEN BY Akash CARRASQUILLO RN
[2025-03-07 05:25] LABS: Add Manual Diff / Slide Review NO; Basophils Absolute Auto 100 /uL (0-100); Basophils Percent Auto 1.4 % (0-2); Eosinophils Absolute Auto 100 /uL (0-450); Eosinophils Percent Auto 1.5 % (2-4); Hematocrit 36.8 % (36-46); Hemoglobin 12.3 g/dL (12.0-16.0); Lymphocytes Absolute Auto 1000 /uL (1100-4500); Lymphocytes Percent Auto 14.4 % (25-40); Mean Corpuscular HGB Conc 33.6 % (30-36); Mean Corpuscular Hemoglobin 33.9 PG (26-34); Mean Corpuscular Volume 100.9 fL (80-100); Monocytes Absolute Auto 700 /uL (0-900); Monocytes Percent Auto 9.4 % (3-14); Neutrophils Absolute Auto 5300 /uL (1500-7000); Neutrophils Percent Auto 73.3 % (50-75); Platelet Count 288 X10^3/uL (150-400); Red Blood Cell Count 3.64 X10^6/uL (4.0-5.2); White Blood Cell Count 7.2 X10^3/uL (4.5-11.0)
[2025-03-07] MEDS: DEXTROSE 5%-0.9% NS 1,000 ML 100 ML IV ×2 (05:44→15:45)
[2025-03-07 05:55] LABS: Alanine Aminotransferase 36 IU/L (<35); Albumin 2.5 g/dL (3.5-5.0); Albumin Globulin Ratio 1.1 (1.0-2.8); Alkaline Phosphatase 64 U/L (38-126); Aspartate Aminotransferase 24 IU/L (14-36); BUN Creatinine Ratio 41.5 (6-22); Bilirubin Total 0.8 mg/dL (0.2-1.3); Blood Urea Nitrogen 27 mg/dL (7-17); Calcium 9.1 mg/dL (8.4-10.2); Carbon Dioxide 23 mmol/L (22-32); Chloride 108 mmol/L (98-107); Estimated Glomerular Filt Rate > 60 mL/min (>60); Globulin 2.2 g/dL (1.7-4.1); Glucose 203 mg/dL (70-99); HEMOLYSIS < 15 (0-50); Potassium 3.7 mmol/L (3.4-5.1); Sodium 135 mmol/L (137-145); Total Protein 4.7 g/dL (6.3-8.2)
--- NOTE | 2025-03-07 06:04 | PC.NURSE ---
Wellness Health Coach Note-Patient brought to room 225 just before shift started. Oriented to person, at bedside until 1999. Patient yells out in pain only when RLQ is touched and during turning, otherwise she is able to sleep. Incontinent of 1 moderate loose brown stool and urine, Purewick placed, 400ml clear UOP. VSS. RA. NPO.
[2025-03-07 06:09] LABS: Troponin I 0.203 ng/mL (0.01-0.034)
--- NOTE | 2025-03-07 06:41 | P.HP_ITS ---
History of Present Illness History of Present Illness Date Patient Seen: 03/07/25 Time Patient Seen: 06:41 Chief complaint: Failure to thrive Narrative: 79-year-old female well known to me admitted to [facility] and discharged on the 27 of February with an ammonia thought to be possibly Pneumocystis. She also basically had severe back pain and inability to ambulate. She was discharged on that date to detention Apparently over the last day or 2 she has become increasingly minimally responsive again. Part of her original admission above related to some altered mental status. She was transported to [facility] Emergency Department where she was found to have an exquisitely tender abdomen. Evaluation demonstrated probable [place] syndrome with severe colonic distention. In addition patient demonstrated progression of bilateral ovarian malignancy right greater than left with evidence of probable serosal implantation and ascites present. Of note ovarian abnormalities were noted on CT scan done at outside facility in March 2024. This is during an ER visit but these abnormalities we are not mentioned in the ER physician's notes, and the CT scan report was never sent to her PCP (myself). The CT scan report was buried in the ED note from that visit, but the ultrasound follow-up recommended however was not identified by the ED physician. 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 Patient's lab work in the ER unremarkable although patient persists with a minimally abnormal troponin. Mild acute kidney injury with creatinine of 1.1. White blood cell count normal rest of her CBC unremarkable. [facility] Medical History Chronic headaches Peripheral edema Uncomplicated opioid dependence Psoriatic arthritis Chronic diarrhea Diverticular disease of colon Gilbert syndrome Pyloric ulcer (~02/2018) History of migraine headaches Psoriasis History of adenomatous polyp of colon (06/27/11) Rheumatoid arthritis (06/06/11) Surgical History Status post spinal surgery History of carpal tunnel repair Status post tubal ligation Family History Brother Age: 78 Hypertension High cholesterol Child Age: 60 Mental health problem Child Age: 57 MS (multiple sclerosis) Father Age: 103 Mental health problem Dementia Cardiac disease Mother Family history of colon cancer Colon cancer Cardiac disease Sister Age: 76 Hypertension High cholesterol Social History household members: spouse alcohol intake: current Meds Home Medications and Allergies Home Medications Medication Instructions Recorded Confirmed Type ferrous sulfate 325 mg (65 mg 325 mg PO DAILY 11/12/18 03/06/25 History iron) tablet calcium carbonate (Calcium 600) 1,200 mg PO DAILY 09/19/19 03/06/25 History cholecalciferol (vitamin D3) 25 2,000 unit PO DAILY 09/19/19 03/06/25 History mcg (1,000 unit) capsule Vitamin B12 1,000 mg PO DAILY 02/18/21 03/07/25 History methotrexate sodium 2.5 mg tablet 7.5 mg PO QWEEK 02/18/21 03/07/25 History folic acid 1 mg tablet 1 mg PO DAILY 08/19/21 03/06/25 History lidocaine 4 % topical patch 1 patch topical DAILY PRN pain #15 11/03/21 03/06/25 Rx ea azelastine 205.5 mcg (0.15 %) 2 spray intranasal BID #30 mL 05/26/23 03/06/25 Rx nasal spray infliximab 100 mg intravenous 100 mg IV [id number] 12/15/23 02/22/25 History solution (Remicade) Disabled Parking #1 ea 01/14/24 02/22/25 Rx sumatriptan succinate 50 mg tablet See Rx Instructions PO .COMPLEX 04/11/24 03/07/25 Rx #72 tabs meloxicam 7.5 mg tablet 7.5 mg PO DAILY #30 tabs 05/16/24 03/06/25 Rx estradiol 0.05 mg/24 hr weekly 1 patch topical QWEEK #12 ea 11/07/24 03/06/25 Rx transdermal patch pantoprazole 40 mg tablet,delayed 40 mg PO DAILY #90 tabs 02/16/25 03/07/25 Rx release baclofen 5 mg tablet 5 mg PO BEDTIME 02/20/25 03/06/25 History gabapentin 300 mg capsule 600 mg PO QPM 02/22/25 03/06/25 History hydrochlorothiazide 25 mg tablet 25 mg PO DAILY #90 tabs 02/23/25 03/06/25 Rx progesterone micronized 100 mg 100 mg PO DAILY #90 caps 02/23/25 03/07/25 Rx capsule hydrocodone 10 mg-acetaminophen 1 - 2 tab PO Q4-6H PRN pain #30 02/27/25 03/06/25 Rx 325 mg tablet tabs prednisone 20 mg tablet 40 mg (2 x 20 mg) PO DAILY #30 tabs 02/27/25 03/07/25 Rx sulfamethoxazole 800 1 tab PO BID 2 weeks #28 tabs 02/27/25 03/07/25 Rx mg-trimethoprim 160 mg tablet Allergies Allergy/AdvReac Type Severity Reaction Status Date / Time Penicillins Allergy Severe Swelling Verified 03/06/25 13:17 of Lip/Tongue/Throat codeine AdvReac Mild H/A Verified 03/06/25 13:17 Review of Systems Review of Systems ROS: Yes All systems reviewed with the patient and are negative except as otherwise documented Gastrointestinal Gastrointestinal: Reports abdominal pain, Denies bloating, Denies nausea and Denies vomiting Exam Vital Signs (past 8 hours): Oxygen Delivery Method Room Air Oxygen Flow Rate 0 Narrative Exam Narrative: Elderly female looking much older than stated age lying in hospital bed. She is awake and alert and recognizes me he was I enter the room HEENT-unremarkable Lungs-clear Heart-regular rate and rhythm Abdomen-positive bowel tones. Diffusely tender throughout out of proportion to physical exam, even moving blanket seems to cause severe discomfort. No distention Extremities-no edema Objective Labs 03/07/25 05:16 03/07/25 05:16 Labs: Laboratory Results - last 24 hr 03/06/25 03/06/25 03/07/25 13:55 16:03 05:16 WBC 9.8 7.2 RBC 4.21 3.64 L Hgb 14.2 12.3 Hct 42.5 36.8 MCV 100.8 H 100.9 H MCH 33.6 33.9 MCHC 33.3 33.6 RDW 14.7 15.0 H Plt Count 376 288 Neut % (Auto) 74.0 73.3 Lymph % (Auto) 17.6 L 14.4 L [place] % (Auto) 5.9 9.4 Eos % (Auto) 1.5 L 1.5 L Baso % (Auto) 1.0 1.4 Neut # (Auto) 7300 H 5300 Lymph # (Auto) 1700 1000 L [place] # (Auto) 600 700 Eos # (Auto) 100 100 Baso # (Auto) 100 100 PT Cancelled INR Cancelled APTT Cancelled Sodium 132 L 135 L Potassium 4.1 3.7 Chloride 101 108 H Carbon Dioxide 26 23 BUN 43 H 27 H Creatinine 1.11 H 0.65 Estimated GFR 51 L > 60 BUN/Creatinine Ratio 38.7 H 41.5 H Glucose 144 H 203 H Lactate Cancelled Calcium 10.6 H 9.1 Magnesium Cancelled Total Bilirubin 0.9 0.8 AST 40 H 24 ALT 61 H 36 H Alkaline Phosphatase 88 64 Total Creatine Kinase < 20 L Troponin I 0.205 H* 0.157 H* 0.203 H* NT-Pro-B Natriuret Pep Cancelled Total Protein 6.8 4.7 L Albumin 3.8 2.5 L Globulin 3.0 2.2 Albumin/Globulin Ratio 1.3 1.1 Lipase 279 Assessment & Plan Assessment & Plan narrative: 1. 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 Continued conservative management with hydration avoidance of oral narcotics and any other oral medications that may slow bowel function. She he was not had any upper GI symptoms at all seems unlikely that NG tube decompression would be helpful. 2. Ovarian cancer-patient new diagnose of ovarian cancer. To be metastatic with evidence of serosal implants ascites etcetera. Also evidence of possible pancreatic ductal carcinoma although lab work does not reflect this. Patient was certainly not a candidate for surgical intervention for her ovarian cancer and would not even be a candidate for any sort of chemotherapy given her debilitated state. 3. Possible Pneumocystis pneumonia-patient does need to continue on oral trimethoprim sulfamethoxazole for possible Pneumocystis pneumonia. She is not hypoxic and does appear to continue to be improved from a respiratory standpoint 4. Back pain-patient with ongoing back pain issues perhaps now more related to her intra-abdominal process as well as pure back issues. MRI done during last admission failed to demonstrate any clear etiology that has new or different despite the fact she was significant back history. She will need continue pain medication but will try and treat with topicals and parental narcotics rather than oral narcotics given the GI issue above 5. Rheumatoid arthritis-patient needs to remain off of her methotrexate. She was started on prednisone during her last admission will continue that for now 6. Code status-patient very clear with spouse's input during last admission she would not want to be resuscitated in the event of a sudden cardiac or respiratory arrest which is entirely appropriate 7. VTE prophylaxis-Lovenox makes sense especially with the newly diagnose malignancy 8. Disposition-patient is not really candidate for intervention for her ovarian cancer in my opinion. I would recommend hospice evaluation. Discussed at length with the patient that is spouse and they are in agreement if there is really no opportunity for any sort of treatment that hospice care makes the most sense, she would prefer to go home Time-Based Coding :: [TOTAL MINUTES] spent with patient and on the chart (including review of chart, obtaining history, exam, reviewing outside data, placing orders, documenting exam and treatment plan, and counseling patient) on [DATE]. PROFEE Manager Council Document charge(s): Yes Charge Codes Initial inpatient/observation care: [id number]
[2025-03-07 07:00] VITALS: O2SAT 94
--- NOTE | 2025-03-07 07:00 | DI.RAD.S_ITS ---
PROCEDURE: XR ABDOMEN MIN 2V INDICATIONS: abd pain TECHNIQUE: 2 views of the abdomen were acquired. COMPARISON: [facility], CT, CT ABDOMEN PELVIS W CON, 03/06/2025, 15:52. FINDINGS AND IMPRESSION: Pneumoperitoneum, possibly viscus perforation. Moderate to large fecal loading. Attempted to call for Dr. Dobbins, unable to directly reach. Urgent message was left. Degenerative changes in the bones with lumbar fusion hardware. Dictated by: Lucio Jordan M.D. on 03/07/2025 at 8:11 Approved by: Lucio Jordan M.D. on 03/07/2025 at 8:24
[2025-03-07] MEDS: HYDROMORPHONE 0.5 MG INJ IV ×2 (08:03→11:48)
[2025-03-07 09:29] VITALS: BP 110/62; PULSE 78; RESP 14; TEMP 36; O2SAT 97
--- NOTE | 2025-03-07 09:31 | PM.EVENT ---
Event Note Date Patient Seen: 03/07/25 Time Patient Seen: 09:31 Event Note (Rapid Response, Code, or fall): I was informed by nursing staff that radiology he needed to let me know that her plain film imaging this morning demonstrated free air under the diaphragm consistent with a perforated viscus. Indeed it was pretty striking on her imaging when I look at it myself I did speak with General surgery, Dr. Evans, who believes her chance of survival of surgery which would likely require a right hemicolectomy as he feels like the cecum he was probably the most likely area of perforation with resulting ileostomy afterwards. He believes her chances of survival in her current state this sort of major abdominal surgery would be about 50/50 at best. She was likely would return from the OR intubated and of course would have the ileostomy. She was take several weeks to likely recover from this. Following recovery from this surgery should she was survive she was then still would have the ovarian cancer that has not been dealt with and potentially the other intra-abdominal cancer although perhaps that can be evaluated at time of surgery. I discussed with Dr. Evans that it does not seem like a surgical intervention to manage her bowel perforation would really result in any increased quality of life time, any time gained would likely be spent recovering from the abdominal surgery. I then discussed this with patient and spouse spending quite a long time discussing this with both of them. I tried hard not to impose my personal thoughts about this but presented the facts that is she was a condition now diagnose with the x-ray imaging that require surgical intervention to fix. Her chances of survival of such an operation as noted above are only 50 50 but then she would have the issues as noted and have to recover from the surgery only to be left in his state where she was still has ovarian cancer that has likely going to continue spreading and will end her life in the next several weeks or months. Patient's spouse and to a somewhat lesser degree patient feels strongly that that would not be worth the pain and suffering as it were to undergo a surgical procedure to gain that kind of extra time of life with poor quality. Therefore they are accepting of the fact that this intra-abdominal catastrophe as it were will prematurely end her life probably in the next several days. They would like to focus on comfort care making sure she is as asymptomatic as is possible while maintaining the highest level of consciousness as possible but still maintaining comfort. I think that is the correct decision come as I think any additional time gained by treating her intra-abdominal perforation now would be spent recovering from that operation I am not even convinced that she would survive do that. Her debilitated health over the last several months is at such a level that I think it [place] super unlikely for her to have any kind of meaningful recovery at all and the odds are high that is she would not even survive the surgical procedure itself. I suggested to spouse that if that has any family members that need to visit that that is should be arranged for RUI. I have changed orders for her hospitalization to comfort care at this point. Will DC any oral medications. Will allow her to have whatever she wants orally he was far as liquids for comfort and focus on parental medication for symptom control. I do not expect her to survive more than a few days given the intra-abdominal catastrophe and her debilitated state before this all began. Currently she is not showing evidence of infection or sepsis but I am sure that that will be evident before too long.
[2025-03-07] MEDS: HYDROMORPHONE 1 MG INJ 2 MG IV (14:53)
[2025-03-07] MEDS: MORPHINE 50 MG in SODIUM CHLORIDE 0.9% 45 ML IV (15:56)
[2025-03-07] MEDS: diazePAM 10 MG/2 ML SYRINGE 5 MG IV (16:10)
[2025-03-07] MEDS: CARBOXYMETHYLCELLULOSE DROPS 1 DROPS EYE-BOTH (17:02)
[2025-03-07 19:00] VITALS: O2SAT 91
[2025-03-07 20:00] VITALS: BP 132/50; PULSE 109; RESP 16; TEMP 36; O2SAT 91
[2025-03-07] MEDS: MORPHINE 50 MG in SODIUM CHLORIDE 0.9% 45 ML 7.5 MG IV (21:12)
[2025-03-08] MEDS: MORPHINE 50 MG in SODIUM CHLORIDE 0.9% 45 ML 7.5 MG IV ×3 (03:33→18:05)
[2025-03-08 08:00] VITALS: BP 103/65; PULSE 92; RESP 16; O2SAT 87
--- NOTE | 2025-03-08 08:11 | CM.DPNOTE ---
Late Entry, entry for 03/07/25 FRUIT RANCHER reviewed EMR Per Dr. Dobbins note, anticipate pt to pass here due to perforated bowels/pt likely not good surgical candidate due to previous fragile medical state. does not believe pt is stable to be moved home with hospice due to pain management concerns. FRUIT RANCHER met with pt and spouse in room. Pt quite throughout most of conversation. spouse reports family is on their way to bedside. spouse does not wish for hospice at home, believes he would not be able to manage her at home. does not want pt to return to for CC. believes pt would be in significant pain moving anywhere. denies lucero services/therapy dogs at this time. denies other questions at this time. FRUIT RANCHER provided emotional support and resources. P: pt expected to pass at imminently. FRUIT RANCHER will continue to follow closely in the event pt stabilizes/there are further CM/FRUIT RANCHER concerns. ROMULO Armendariz
--- NOTE | 2025-03-08 08:25 | P.PN_ITS ---
Subjective Subjective Date Patient Seen: 03/08/25 Time Patient Seen: 08:26 Interval history: Really no change overall. Has become much less responsive since morphine continuous infusion was instituted. Certainly does not appear to be in any discomfort Family arriving. Son has a arrive. Daughter to arrive tomorrow from out of state Exam Vital Signs (past 8 hours): Oxygen Delivery Method Room Air Oxygen Flow Rate 0 Objective Labs 03/07/25 05:16 03/07/25 05:16 [facility] Medical History Chronic headaches Peripheral edema Uncomplicated opioid dependence Psoriatic arthritis Chronic diarrhea Diverticular disease of colon Gilbert syndrome Pyloric ulcer (~02/2018) History of migraine headaches Psoriasis History of adenomatous polyp of colon (06/27/11) Rheumatoid arthritis (06/06/11) Surgical History Status post spinal surgery History of carpal tunnel repair Status post tubal ligation Family History Brother Age: 78 Hypertension High cholesterol Child Age: 60 Mental health problem Child Age: 57 MS (multiple sclerosis) Father Age: 103 Mental health problem Dementia Cardiac disease Mother Family history of colon cancer Colon cancer Cardiac disease Sister Age: 76 Hypertension High cholesterol Social History household members: spouse alcohol intake: current Assessment & Plan Assessment & Plan narrative: Patient terminal with an intra-abdominal catastrophe/perforated viscus and elected no surgical intervention given very poor outcome and prognosis with the underlying diseases such as metastatic ovarian cancer possibly pancreatic cancer etcetera Continue with comfort care. I am going to continue on IV fluids for now as all of family has not yet arrived from out of state Time-Based Coding :: [TOTAL MINUTES] spent with patient and on the chart (including review of chart, obtaining history, exam, reviewing outside data, placing orders, documenting exam and treatment plan, and counseling patient) on [DATE]. PROFEE Club Former Document charge(s): Yes Charge Codes Subsequent inpatient/observation care: [id number]
[2025-03-08] MEDS: DEXTROSE 5%-0.9% NS 1,000 ML 100 ML IV ×2 (10:25→20:30)
[2025-03-08] MEDS: SCOPOLAMINE 1 PATCH TOP (10:26)
--- NOTE | 2025-03-08 12:15 | CM.DPNOTE ---
DCP Note DRAW MACHINE OPERATOR reviewed EMR per behzad note, pt remains likely imminent. Per RN, family at bedside and more are on their way. pt less responsive today. remains on morphine drip for pain. DRAW MACHINE OPERATOR met with spouse at bedside (Marie present). Spouse denies any DRAW MACHINE OPERATOR needs at this time. P: pt likely imminent. comfort care orders in place. CM team will continue to follow closely in case any additional needs arise. ROMULO Armendariz
[2025-03-08] MEDS: HYDROMORPHONE 1 MG INJ 2 MG IV (19:30)
[2025-03-09] MEDS: MORPHINE 50 MG in SODIUM CHLORIDE 0.9% 45 ML 10 MG IV ×5 (00:05→20:33)
[2025-03-09] MEDS: HYDROMORPHONE 1 MG INJ 2 MG IV (05:35)
[2025-03-09] MEDS: DEXTROSE 5%-0.9% NS 1,000 ML 100 ML IV (05:49)
--- NOTE | 2025-03-09 08:28 | P.PN_ITS ---
Subjective Subjective Date Patient Seen: 03/09/25 Time Patient Seen: 08:28 Interval history: Patient beginning to have some disorders breathing. She has required a slightly higher dose of morphine. Still seems quite comfortable 99.9% of the time Exam Vital Signs (past 8 hours): Oxygen Delivery Method Nasal Cannula Oxygen Flow Rate 0 Objective Labs 03/07/25 05:16 03/07/25 05:16 [facility] Medical History Chronic headaches Peripheral edema Uncomplicated opioid dependence Psoriatic arthritis Chronic diarrhea Diverticular disease of colon Gilbert syndrome Pyloric ulcer (~02/2018) History of migraine headaches Psoriasis History of adenomatous polyp of colon (06/27/11) Rheumatoid arthritis (06/06/11) Surgical History Status post spinal surgery History of carpal tunnel repair Status post tubal ligation Family History Brother Age: 78 Hypertension High cholesterol Child Age: 60 Mental health problem Child Age: 57 MS (multiple sclerosis) Father Age: 103 Mental health problem Dementia Cardiac disease Mother Family history of colon cancer Colon cancer Cardiac disease Sister Age: 76 Hypertension High cholesterol Social History household members: spouse alcohol intake: current Assessment & Plan Assessment & Plan narrative: Patient on comfort care with perfect intra-abdominal viscus as well as newly diagnose ovarian cancer with intra-abdominal spread and possible pancreatic/pancreatic ductal cancer. This is on top of severe rheumatoid arthritis severe back pain etcetera. In any event she was slowly declining as expected. Son has arrived and daughter will be arriving later today. I am going to discontinue supplemental IV fluids. Continue comfort care. I expect she probably has 24 hours or so before she expires given the beginning of the disordered breathing etcetera. However this is notoriously difficult to be anything like accurate regarding time of . I would not be surprised if she hangs on until daughter arrives and then quickly expires. Discussed current status with spouse and son who were in the room with her. Answered all of their questions to the best of my ability. Verify that she has been kept comfortable with medications etcetera. No change in plan for today except for discontinuation of the IV fluids which are only prolonging the inevitable. Time-Based Coding :: [TOTAL MINUTES] spent with patient and on the chart (including review of chart, obtaining history, exam, reviewing outside data, placing orders, documenting exam and treatment plan, and counseling patient) on [DATE]. PROFEE Tap Builder Document charge(s): Yes Charge Codes Subsequent inpatient/observation care: [id number]
--- NOTE | 2025-03-09 10:59 | PC.NURSE ---
Addendum entered by Bettie Juares R.N. 03/09/25 18:30: Patients blood pressure 68/40, rr 10, temp 98.2, and 92% on 2.5L. Patient is on comfort care and continues to get her morphine drip. She has good color to her face. Addendum entered by Bettie Juares R.N. 03/09/25 17:10: Patients coloring is better but patient is still having apnea between breaths that is lasting around 8 seconds. She has been repositioned several times this shift. New morphine drip put up around 1515. in room now. Addendum entered by Bettie Juares R.N. 03/09/25 14:12: Just checked on patient and repositioned her to her left side, her daughter and son in law just arrived to be with patient. She is bridged with pillow under her back, facing towards the door. Addendum entered by Bettie Juares R.N. 03/09/25 13:02: Patient continues to have about 7-8 seconds of apnea when breathing. Offered to turn patient and states that she is comfortably at this time. Family is waiting for daughter to arrive from [place] to see her Mother. Mepilex dressing cdi. Original Note: Patient is not responsive to family or staff. She was just repositioned on her r.side with pillow behind her back. Patient has shallow breath with longer periods of apnea. She has a mepilex dressing to her coccyx area from a stage two pressure injury, and son in room visiting. Morphine drip infusing at 10ml/hr. Patient is comfortable. Minimal moaning when turned. Resting well.
--- NOTE | 2025-03-09 11:44 | CM.DPNOTE ---
DCP Note LUMBER BUYER reviewed EMR. patient discussed in morning rounds. per behzad note, pt remains imminent. Per RN, family at bedside and more are on their way. pt less responsive today. remains on morphine drip for pain. LUMBER BUYER met with spouse at bedside . Spouse denies any LUMBER BUYER needs at this time. Spouse appreciative for the care his is receiving. P: pt likely imminent. comfort care orders in place. CM team will continue to follow closely in case any additional needs arise. BREEZY
[2025-03-09 18:30] VITALS: BP 98/40; PULSE 135; RESP 10; TEMP 36.8; O2SAT 92
[2025-03-09 19:41] VITALS: O2SAT 92
[2025-03-10] MEDS: MORPHINE 50 MG in SODIUM CHLORIDE 0.9% 45 ML 10 MG IV (01:35)
[2025-03-10] MEDS: HYDROMORPHONE 0.5 MG INJ IV (03:10)
--- NOTE | 2025-03-10 07:05 | PC.NURSE ---
Pt passed at 0636, family at bedside, Dr Dobbins called 2x no answer/answering machine available. Charge nurse aware.
--- NOTE | 2025-03-10 08:18 | P.DN_ITS ---
Discharge Summary History of Illness Narrative: 79-year-old female well known to me admitted to [facility] and discharged on the 27 of February with an ammonia thought to be possibly Pneumocystis. She also basically had severe back pain and inability to ambulate. She was discharged on that date to custodial Apparently over the last day or 2 she has become increasingly minimally responsive again. Part of her original admission above related to some altered mental status. She was transported to [facility] Emergency Department where she was found to have an exquisitely tender abdomen. Evaluation demonstrated probable [place] syndrome with severe colonic distention. In addition patient demonstrated progression of bilateral ovarian malignancy right greater than left with evidence of probable serosal implantation and ascites present. Of note ovarian abnormalities were noted on CT scan done at outside facility in March 2024. This is during an ER visit but these abnormalities we are not mentioned in the ER physician's notes, and the CT scan report was never sent to her PCP (myself). The CT scan report was buried in the ED note from that visit, but the ultrasound follow-up recommended however was not identified by the ED physician. 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 Patient's lab work in the ER unremarkable although patient persists with a minimally abnormal troponin. Mild acute kidney injury with creatinine of 1.1. White blood cell count normal rest of her CBC unremarkable. Hospital Course Date of Admission: 03/06/25 18:39 Date of : 03/10/25 Primary care provider: Ilir Dobbins MD Consults: 03/06/25 13:21 Consult to [facility] [place] - Drupal Architect Stat Comment: Drupal Architect Consult needed for:: Other reason (Comment) Comment: failure to thrive,talk about hospice consult 03/07/25 08:34 Consult to Hospice Referral Routine Comment: 03/07/25 09:28 Consult to Discharge Planning Routine Comment: Discharge provider: Turner Dobbins MD Discharge Diagnosis: 1. Colonic perforation with peritonitis 2. Acute pseudo-obstruction of the colon 3. Acute metabolic encephalopathy 4. Metastatic ovarian cancer 5. Rheumatoid arthritis 6. Psoriatic arthritis 7. Probable Pneumocystis pneumonia 8. Peripheral edema Hospital Course: As above patient was admitted to the hospital because of her altered mental status, evidence of the pseudo-obstruction of the colon or Alla syndrome, as well as the new diagnosis of metastatic ovarian cancer. With some IV fluid resuscitation patient's mental status improved significantly. She was still having exquisite abdominal pain and repeat imaging demonstrated free air under the diaphragm consistent with an intra-abdominal intestinal perforation most likely colonic, most likely cecal. Discussion was held with general surgery who felt like at best she had a 50% chance of survival of a surgery would have significant disability and recovery time afterwards before even beginning to manage or deal with the newly found ovarian malignancy. Discussion was then held with the patient and spouse and given her clinical course over the last several weeks and months along with a new diagnose of the ovarian cancer it was elected to not attempt to treat her intra-abdominal catastrophe. She was made a comfort care patient and he was subsequently placed on continuous morphine infusion. Patient continued to slowly decline with minimal levels of alertness. She was kept comfortable for the duration of her hospital stay and she finally early in the morning on the 10 Mar 2025 with family members in attendance. Objective Labs 03/07/25 05:16 03/07/25 05:16
--- NOTE | 2025-03-10 09:13 | PC.NURSE ---
Pt discharged to [facility] at 0915. Family removed all belongings from room.
== END 2025-03-10 09:20 | disposition expired | DRG 393 ==
LOC: ED 17:20 → AC 18:39
PROVIDERS: Admitting Provider Internal Medicine; Emergency Provider Emergency Medicine; PCP Internal Medicine; Referring Provider Emergency Medicine; Visit Provider Internal Medicine
DX: K63.1 Perforation of intestine (nontraumatic) (principal); B59 Pneumocystosis; G93.41 Metabolic encephalopathy; J18.9 Pneumonia, unspecified organism; K65.9 Peritonitis, unspecified; C56.3 Malignant neoplasm of bilateral ovaries; C78.89 Secondary malignant neoplasm of other digestive organs; C79.89 Secondary malignant neoplasm of other specified sites; K59.81 Ogilvie syndrome; M06.9 Rheumatoid arthritis, unspecified; L40.50 Arthropathic psoriasis, unspecified; Z51.5 Encounter for palliative care; Z66 Do not resuscitate
CPT/HCPCS: 36415; 70460; 71045; 74019; 74177; 80053; 82550; 83690; 84484; 85025; 93005; 94760; 96360; 99223; 99232; 99285; A9270; J1171; J2270; J3360; Q9967